=== PATIENT | female | born 1960 | race Caucasian/White ===

== ENCOUNTER 2018-03-24 15:02 | Outpatient (REF) | payer MEDICAID, SELFPAY ==
[2018-03-24 18:50] LABS: TSH (W/Ref FT4) 1.25 uIU/mL (0.358-3.74)
== END 2018-03-24 15:22 ==
LOC: NCHCN 15:02
PROVIDERS: PCP Nurse Practitioner Family; Visit Provider Nurse Practitioner Family
DX: E89.0 Postprocedural hypothyroidism (principal)
CPT/HCPCS: 84443

== ENCOUNTER 2018-12-15 07:56 | Outpatient (REF) | payer MEDICAID, SELFPAY ==
[2018-12-15 18:51] LABS: TSH (W/Ref FT4) 1.85 uIU/mL (0.358-3.74)
== END 2018-12-15 08:16 ==
LOC: NCHCN 07:56
PROVIDERS: PCP Nurse Practitioner Family; Visit Provider Nurse Practitioner Family
DX: E89.0 Postprocedural hypothyroidism (principal)
CPT/HCPCS: 84443

== ENCOUNTER 2019-01-20 00:52 | Outpatient (CLI) | payer MEDICAID, SELFPAY ==
--- NOTE | 2019-01-20 12:09 | DI.MAMMO_ITS ---
SYMPTOMS/DIAGNOSIS: SCREENING, Z12.39 MAMMOGRAMS: Mammograms were interpreted according to the usual protocol including computer analysis with CAD system, tomosynthesis and C view imaging. The breasts are of increased heterogeneous radiodensity. No dominant mass or clumped microcalcification is identified in either breast. Current examination is compared with previous examinations including August 2015 and there is increased prominence of focal area of asymmetric density projected in the central superior portion of the left breast on MLO view. Additional mammographic views of this area are requested to include MLO spot compression view of the left breast. CONCLUSION: Additional mammographic views requested as described above. Breast ultrasound may be indicated as well depending on the results of the additional mammographic views. Category 0, breast density category C. MQSA ASSESSMENT OF FINDINGS: Incomplete: Needs additional imaging evaluation. Category 0. Patient will receive a letter notifying them of these results. Bi-RADS category C. The breasts are heterogeneously dense, which may obscure small masses.
== END 2019-01-20 01:12 ==
PROVIDERS: PCP Nurse Practitioner Family; Visit Provider Nurse Practitioner Family
DX: Z12.31 Encounter for screening mammogram for malignant neoplasm of breast (principal); R92.8 Other abnormal and inconclusive findings on diagnostic imaging of breast
CPT/HCPCS: 77063; 77067

== ENCOUNTER 2019-01-27 06:20 | Outpatient (CLI) | payer MEDICAID, SELFPAY ==
--- NOTE | 2019-01-27 13:55 | DI.MAMMO_ITS ---
SYMPTOM/DIAGNOSIS: F/U MAMMO, ASYMMETRIC DENSITY CENTRAL SUPERIOR PORTION LEFT BREAST LEFT BREAST ADDITIONAL VIEWS: Additional images are interpreted according to the usual protocol including tomosynthesis and 2D imaging. An MLO spot compression view was performed of the superior left breast for questioned asymmetric density. No persistent abnormality is seen. The findings are consistent with overlying fibroglandular tissue. IMPRESSION: Category 1, negative mammogram. Yearly screening mammography is recommended. [facility] ASSESSMENT OF FINDINGS: Negative. Category 1. Patient will receive a letter notifying them of these results. Bi-RADS category C. The breasts are heterogeneously dense, which may obscure small masses.
== END 2019-01-27 06:40 ==
PROVIDERS: PCP Nurse Practitioner Family; Visit Provider Nurse Practitioner Family
DX: Z12.31 Encounter for screening mammogram for malignant neoplasm of breast (principal); R92.8 Other abnormal and inconclusive findings on diagnostic imaging of breast; N64.59 Other signs and symptoms in breast
CPT/HCPCS: 77063; 77067

== ENCOUNTER 2019-03-26 15:46 | Outpatient (REF) | payer MEDICAID, SELFPAY ==
[2019-03-26 15:04] LABS: BUN 10 mg/dL (7-18); CREATININE 0.93 mg/dL (0.55-1.02); Calcium 8.8 mg/dL (8.5-10.1); Calculated LDL 158 mg/dL; Chloride 105 mmol/L (98-107); Cholesterol 240 mg/dL (50-200); Glucose 110 mg/dL (70-100); HDL Cholesterol 50 mg/dL (40-60); Potassium 4.3 mmol/L (3.5-5.1); Sodium 142 mmol/L (136-145); TSH (W/Ref FT4) 1.29 uIU/mL (0.36-3.74); Triglyceride 160 mg/dL (30-150)
== END 2019-03-26 16:06 ==
LOC: NCHCN 15:46
PROVIDERS: PCP Nurse Practitioner Family; Visit Provider Nurse Practitioner Family
DX: E89.0 Postprocedural hypothyroidism (principal); E78.5 Hyperlipidemia, unspecified; R73.01 Impaired fasting glucose
CPT/HCPCS: 80048; 80061; 84443

== ENCOUNTER 2020-04-08 11:56 | Outpatient (REF) | payer MEDICAID, SELFPAY ==
[2020-04-08 19:57] LABS: TSH (W/Ref FT4) 0.27 uIU/mL (0.36-3.74)
[2020-04-08 20:14] LABS: FREE T4 1.45 ng/dL (0.76-1.46)
== END 2020-04-08 12:16 ==
LOC: NCHCN 11:56
PROVIDERS: PCP Nurse Practitioner Family; Visit Provider Nurse Practitioner Family
DX: E89.0 Postprocedural hypothyroidism (principal)
CPT/HCPCS: 84439; 84443

== ENCOUNTER 2020-06-07 18:30 | Outpatient (REF) | payer MEDICAID, SELFPAY ==
[2020-06-07 20:05] LABS: TSH (W/Ref FT4) 1.21 uIU/mL (0.36-3.74)
== END 2020-06-07 18:50 ==
LOC: NCHCN 18:30
PROVIDERS: PCP Nurse Practitioner Family; Visit Provider Nurse Practitioner Family
DX: E89.0 Postprocedural hypothyroidism (principal)
CPT/HCPCS: 84443

== ENCOUNTER 2020-07-20 15:54 | Outpatient (REF) | payer MEDICAID, SELFPAY ==
[2020-07-21 15:04] LABS: COVID-19 RT-PCR UVMMC Result Negative (Negative)
== END 2020-07-20 15:55 | disposition home or self-care (01) ==
LOC: NCHCN 15:54
PROVIDERS: PCP Nurse Practitioner Family; Visit Provider Family Medicine
DX: J06.9 Acute upper respiratory infection, unspecified (principal)
CPT/HCPCS: U0003

== ENCOUNTER 2020-09-22 18:06 | Outpatient (REF) | payer MEDICAID, SELFPAY ==
[2020-09-22 19:18] LABS: TSH (W/Ref FT4) 1.39 uIU/mL (0.36-3.74)
== END 2020-09-22 18:07 | disposition home or self-care (01) ==
LOC: NCHCN 18:06
PROVIDERS: PCP Nurse Practitioner Family; Visit Provider Nurse Practitioner Family
DX: E05.20 Thyrotoxicosis with toxic multinodular goiter without thyrotoxic crisis or storm (principal)
CPT/HCPCS: 84443

== ENCOUNTER 2021-05-12 15:01 | Outpatient (REF) | payer MEDICAID, SELFPAY ==
[2021-05-14 11:57] LABS: COVID-19 RT-PCR UVMMC Result Negative (Negative)
== END 2021-05-12 15:02 | disposition home or self-care (01) ==
LOC: LBN 15:01
PROVIDERS: PCP Nurse Practitioner Family; Visit Provider Family Medicine
DX: Z20.822 Contact with and (suspected) exposure to COVID-19 (principal); J06.9 Acute upper respiratory infection, unspecified
CPT/HCPCS: U0003

== ENCOUNTER 2021-05-23 16:52 | Emergency (ER) | payer MEDICAID, SELFPAY ==
--- NOTE | 2021-05-23 17:00 | RT.EKG_ITS ---
APPROVED REPORT Exam: Resting ECG Reason for Exam: SOB Patient Location: E HR:63 bpm ECG Measurements Heart Rate 63 AXIS AK 184 P 19 QRSd 90 QRS -14 QT 420 T 0 QTc 430 Conclusion Sinus rhythm...normal P axis, V-rate 60- 99
[2021-05-23 17:02] VITALS: BP 145/86; PULSE 67; RESP 18; TEMP 36.6; O2SAT 98
--- NOTE | 2021-05-23 17:15 | DI.RAD_ITS ---
Exam(s) XR PORTABLE CHEST AP EXAM: XR PORTABLE CHEST AP CLINICAL HISTORY: cough TECHNIQUE: 2D digital imaging was performed of the chest. One image was obtained. An AP view was ob tained. COMPARISON: CR CHEST 2 VIEWS PA,LAT from 06/21/2015 FINDINGS: MEDIASTINUM: Normal. HEART: Normal. PULMONARY VASCULATURE: Normal. LUNGS: Clear. PLEURAL SPACE: No pleural effusion or pneumothorax. BONE:Within normal limits for the patient's age. OTHER FINDINGS:Normal. IMPRESSION: No acute pulmonary findings. DATA REPOSITORY: RADIATION DOSE DELIVERED:
--- NOTE | 2021-05-23 17:17 | ED.GENADUL_ITS ---
Discharge Plan Disposition Patient Disposition: HOME Condition: Stable Discharge Details Clinical Impression: Cough, Breathing difficulty Primary Care Provider: Donna Shay ED Provider: Gregg Moreland Home Meds and New Rx's Prescriptions: New doxycycline hyclate 100 mg tablet 100 mg PO BID Qty: 14 RF: 0 prednisone 20 mg tablet 60 mg PO DAILY 5 Days Qty: 15 RF: 0 Continued levothyroxine [Synthroid] 125 MCG tablet 125 mcg PO DAILY RF: 0 omeprazole 20 MG capsule,delayed release(DR/EC) 20 mg PO BID RF: 0 lorazepam 1 MG tablet 1 mg PO PRN RF: 0 acetaminophen [Mapap Extra Strength] 500 MG tablet 500 mg PO PRN PRNRF: 0 ibuprofen [Advil] 200 MG tablet 1 - 2 tab PO PRN PRN (Reason: Pain) RF: 0 Discharge Instructions Additional Instructions: Your blood work and xray did not show any significant findings at this time follow up with your primary care provider within 1 week if you feel more ill, have worsening shortness of breath or high fevers return to the emergency department Medical Decision Making 61 yo female with hx of hypothyroidism, gerd, who comes in with over a week of dry cough, general weakness and states she feels like she did when she had bronchitis/walking pneumonia years ago. She states she has had a negative covid test and has been to urgent care or prescribed an inhaler and tessalon perles and these haven't helped. She states she has been feeling tight in the chest when trying to breath. SHe has stable vitals, no hypoxia speaking in full sentences. sHe has clear lungs, no murmurs, no jvd, no pedal edema. Given continued symptoms will repeat test for covid. Her symptoms seems more infectious and doubt acs but will send troponin, ecg unremarkable. No hypoxia or tachycardia and no evidence of dvt on exam so doubt PE at this time. Will xray to evaluate for infiltrate labs unremarkable and xray on my read unremarkable. She remains stable. She has had symptoms for over a week and given this will treat with doxycycline to cover for possible developing CAP vs bacterial sinusitis. She is stable for outpatient management. Advised to follow up with pcp and return precautions given Differential Diagnosis Differential Diagnosis: covid, pneumonia, uri Imaging Data Radiologic Study: Attestation: I personally reviewed and interpreted this imaging study as follows: Imaging: X-Ray My impression: no acute findings Lab Data Lab results reviewed: Yes I reviewed the patient's lab results. ECG Data Attestation: I personally reviewed and interpreted this ECG (s) as follows: Prior ECG tracings: not available for review HPI General Mode of arrival: ambulatory . Date/Time Provider Initiated Documentation: 05/23/21 16:59 . Limitations to Documentation: no limitations . Information obtained by: patient . History of Present Illness 61 year old F presents to the emergency department with the chief complaint of cough, described as moderate, and it has been constant. No relieving factors improve symptom(s), No exacerbating factors reported . Patient notes weakness. Patient did receive the following treatments prior to arrival, none Related Data Home Medications Medication Instructions Recorded Confirmed acetaminophen [Mapap Extra 500 mg PO PRN PRN 11/30/14 05/23/21 Strength] ibuprofen [Advil] 1 - 2 tab PO PRN PRN 11/30/14 05/23/21 levothyroxine [Synthroid] 125 mcg PO DAILY tab-cap 11/30/14 05/23/21 lorazepam 1 mg PO PRN tab-cap 11/30/14 05/23/21 omeprazole 20 mg PO BID 11/30/14 05/23/21 doxycycline hyclate 100 mg PO BID #14 tab 05/23/21 prednisone 60 mg PO DAILY 5 Days #15 tab 05/23/21 Previous Rx's Medication Instructions Recorded doxycycline hyclate 100 mg PO BID #14 tab 05/23/21 prednisone 60 mg PO DAILY 5 Days #15 tab 05/23/21 Allergies Allergy/AdvReac Type Severity Reaction Status Date / Time etodolac [From Lodine] Allergy swelling Unverified 05/23/21 17:06 of hands Sulfa (Sulfonamide Allergy rash, Unverified 05/23/21 17:06 Antibiotics) hand/arm swelling latex AdvReac Intermediate Hives Unverified 05/23/21 17:06 ciprofloxacin [From Cipro] AdvReac N/V Unverified 05/23/21 17:06 ciprofloxacin HCl AdvReac N/V Unverified 05/23/21 17:06 [From Cipro] General Stated Complaint: RespSymp FISH: 3 Review of Systems All systems reviewed & are unremarkable except as noted in HPI and below Constitutional Constitutional: Denies chills and Denies fever(s) Cardiovascular Cardiovascular: Denies chest pain and Denies dyspnea Respiratory Respiratory: Denies dyspnea Gastrointestinal Gastrointestinal: Denies abdominal pain, Denies nausea and Denies vomiting Musculoskeletal Musculoskeletal: Denies joint swelling Psychiatric Psychiatric: Denies depression PFSH All Active Problems (Updated 05/23/21 @ 18:04 by Gregg Moreland MD) Cough (Acute) Breathing difficulty (Acute) Social History Smoking/Tobacco Use Status: Former Tobacco Use Smoking risk assessment performed?: Yes Alcohol Intake: never Drug use: Never Substance use type: does not use Exam Const General: no acute distress Orientation: alert HENMT Head: normal to inspection Ears: external ears normal General nose exam: external nose normal Mouth: moist mucous membranes Eyes General: appearance normal, both eyes and all related structures Neck Neck: normal visual inspection Resp Effort & Inspection: normal respiratory effort and able to speak in complete sentences Cardio Rate: regular rate Skin General skin exam: no rashes or lesions noted Neuro General: patient alert and patient oriented x3 Extrem General: normal to inspection Psych Mental Status: mental status grossly normal Course Vital Signs Vital signs: Vital Signs Temperature 36.6 C 05/23/21 17:02 Pulse 67 05/23/21 17:02 Respiratory Rate 18 05/23/21 17:02 Blood Pressure 145/86 H 05/23/21 17:02 Pulse Oximetry 98 05/23/21 17:02 Temperature 36.6 C 05/23/21 17:02 Temperature Source Temporal Artery Scan 05/23/21 17:02 Pulse 67 05/23/21 17:02 Respiratory Rate 18 05/23/21 17:02 Respiratory Effort Non-Labored 05/23/21 17:06 Respiratory Depth Normal 05/23/21 17:06 Blood Pressure 145/86 H 05/23/21 17:02 Pulse Oximetry 98 05/23/21 17:02 Oxygen Delivery Method Room Air 05/23/21 17:02 Oxygen Flow Rate 0 05/23/21 17:02 Pain Level 4 05/23/21 17:02
[2021-05-23 17:25] LABS: Abs Immature Grans 0.02 10^3/uL (0.0-0.06); Absolute Basophil Count 0.04 10^3/uL (0.0-0.2); Absolute Eosinophil Count 0.12 10^3/uL (0.0-0.7); Absolute Monocyte Count 0.48 10^3/uL (0.1-0.8); Absolute Neutrophil Count 4.45 10^3/uL (1.2-6.7); Basophils % 0.6; Eosinophils % 1.7; HGB 12.9 g/dL (11.2-15.7); Immature Grans % 0.3; Lymphocytes % 28.1; MCH 28.2 pg (27.0-33.0); MCHC 33.1 % (32.0-36.0); MCV 85.2 fL (80-95); MPV 11.7 fL (8.0-11.0); Monocytes % 6.8; Neutrophils % 62.5; Nucleated RBC 0 %; Platelet Count 182 10^3/uL (130-400); RBC 4.58 10^6/uL (3.93-5.22); RDW 13.5 % (11.7-14.6); RDW-SD 41.8 fL; WBC 7.11 10^3/uL (4.4-10.8)
[2021-05-23 17:48] LABS: ALT 30 U/L (14-59); AST 16 U/L (15-37); Albumin 3.7 g/dL (3.4-5.0); Alkaline Phosphatase 97 U/L (46-116); Anion Gap 8.1 mmol/L (3-11); BUN 15 mg/dL (7-18); Bilirubin, Total 0.4 mg/dL (0.2-1.0); CO2 25.9 mmol/L (21.0-32.0); CREATININE 0.9 mg/dL (0.55-1.02); Calcium 8.6 mg/dL (8.5-10.1); Chloride 104 mmol/L (98-107); Glucose 97 mg/dL (74-106); Potassium 3.6 mmol/L (3.5-5.1); Sodium 138 mmol/L (136-145); Total Protein 7.3 g/dL (6.4-8.2); Troponin I < 50 ng/L (<or=60)
[2021-05-23] MEDS: Doxycycline Hyclate 100 MG CAP PO (18:10)
--- NOTE | 2021-05-23 18:12 | DI.VRAD_ITS ---
PROCEDURE INFORMATION: Exam: XR Chest Exam date and time: 05/23/2021 5:17 PM Age: 61 years old Clinical indication: Other: Cough TECHNIQUE: Imaging protocol: XR of the chest. Views: 1 view. COMPARISON: CR CHEST 2 VIEWS PA,LAT 06/21/2015 10:29 AM FINDINGS: Lungs: Unremarkable. No consolidation. Pleural spaces: Unremarkable. No pleural effusion. No pneumothorax. Heart/Mediastinum: Unremarkable. No cardiomegaly. Bones/joints: Unremarkable. IMPRESSION: No acute findings. Dictated and Authenticated by: Mark Villeda MD. Ordering:PAM Escobedo MD
[2021-05-23 23:23] VITALS: BP 145/86; PULSE 67; RESP 18; TEMP 36.6; O2SAT 98
[2021-05-25 17:02] LABS: COVID-19 RT-PCR UVMMC Result Negative (Negative)
--- NOTE | 2021-05-27 11:24 | NUR.NOTE ---
negative covid result relayed to pt via phone.Nursing Note:
== END 2021-05-23 18:17 | disposition home or self-care (01) ==
PROVIDERS: Emergency Provider Emergency Medicine; PCP Nurse Practitioner Family
DX: R05.1 Acute cough (principal); R06.02 Shortness of breath; R53.1 Weakness; R07.89 Other chest pain; Z20.822 Contact with and (suspected) exposure to COVID-19
CPT/HCPCS: 80053; 93005; 99284; U0003; 71045; 84484; 85025; 93010

== ENCOUNTER 2021-06-13 14:29 | Outpatient (REF) | payer MEDICAID, SELFPAY ==
[2021-06-13 15:30] LABS: Abs Immature Grans 0.01 10^3/uL (0.0-0.06); Absolute Basophil Count 0.04 10^3/uL (0.0-0.2); Absolute Eosinophil Count 0.13 10^3/uL (0.0-0.7); Absolute Lymphocyte Count 1.26 10^3/uL (1.2-3.4); Absolute Monocyte Count 0.31 10^3/uL (0.1-0.8); Absolute Neutrophil Count 2.79 10^3/uL (1.2-6.7); Basophils % 0.9; Eosinophils % 2.9; HCT 43.5 % (36.0-46.0); HGB 14.3 g/dL (11.2-15.7); Immature Grans % 0.2; Lymphocytes % 27.8; MCH 28.7 pg (27.0-33.0); MCHC 32.9 % (32.0-36.0); MCV 87.2 fL (80-95); MPV 12.8 fL (8.0-11.0); Monocytes % 6.8; Neutrophils % 61.4; Nucleated RBC 0 %; Platelet Count 158 10^3/uL (130-400); RBC 4.99 10^6/uL (3.93-5.22); RDW 13.4 % (11.7-14.6); RDW-SD 42.8 fL; WBC 4.54 10^3/uL (4.4-10.8)
[2021-06-13 16:58] LABS: Anion Gap 11.4 mmol/L (3-11); BUN 16 mg/dL (7-18); CO2 24.6 mmol/L (21.0-32.0); CREATININE 0.8 mg/dL (0.55-1.02); Calcium 9.1 mg/dL (8.5-10.1); Chloride 103 mmol/L (98-107); Glucose 115 mg/dL (74-106); Potassium 4.1 mmol/L (3.5-5.1); Sodium 139 mmol/L (136-145); TSH (W/Ref FT4) 1.58 uIU/mL (0.36-3.74)
[2021-06-14 11:10] LABS: Hepatitis C Ab w Rflx HCV PCR Negative (Negative)
== END 2021-06-13 14:30 | disposition home or self-care (01) ==
LOC: LBN 14:29
PROVIDERS: PCP Nurse Practitioner Family; Visit Provider Family Medicine
DX: E89.0 Postprocedural hypothyroidism (principal); R53.83 Other fatigue; J18.9 Pneumonia, unspecified organism; Z11.59 Encounter for screening for other viral diseases
CPT/HCPCS: 80048; 86803; 84443; 85025

== ENCOUNTER 2021-06-20 20:02 | Outpatient (REF) | payer MEDICAID, SELFPAY | END 2021-06-20 20:03 | disposition home or self-care (01) | LOC: LBN 20:02 | PROVIDERS: PCP Nurse Practitioner Family; Visit Provider Family Medicine | DX: R35.0 Frequency of micturition (principal) | CPT/HCPCS: 87077; 87086; 87186 ==

== ENCOUNTER 2021-06-27 17:23 | Outpatient (REF) | payer MEDICAID, SELFPAY ==
[2021-06-27 17:09] LABS: Bilirubin Negative (Negative); Blood Negative (Negative); Clarity Sl Cloudy (Clear); Glucose Negative (Negative); Ketones Negative (Negative); Leukocyte Esterase Small (Negative); Nitrite Negative (Negative); Specific Gravity >= 1.030 (1.005-1.025); Urobilinogen 0.2 EU/dL (Up TO 0.2); pH 5.5 (5-8)
[2021-06-27 17:44] LABS: Bacteria Few HPF (Negative); C & S Indicated? C&S Done As Ordered; Crystals Negative HPF (Negative); Epithelial Cells Many HPF (Negative); Mucus Heavy (Negative); RBC 0-2 HPF (0-2)
== END 2021-06-27 17:24 | disposition home or self-care (01) ==
LOC: LBN 17:23
PROVIDERS: PCP Nurse Practitioner Family; Visit Provider Family Medicine
DX: N30.00 Acute cystitis without hematuria (principal)
CPT/HCPCS: 81003; 81015; 87086

== ENCOUNTER 2021-07-31 14:03 | Outpatient (CLI) | payer OTHER, MEDICAID, SELFPAY ==
--- NOTE | 2021-07-31 14:00 | DI.RAD_ITS ---
Exam(s) XR LUMBAR SPINE COMPLETE EXAM: XR LUMBAR SPINE COMPLETE CLINICAL HISTORY: ACUTE BACK PAIN, M54.89, ACUTE PAIN DUE TO TRAUMA, G89.11. TECHNIQUE: 2D digital imaging was performed. COMPARISON: No exams were available for comparison FINDINGS: BONES: No fracture or destructive lesion. Vertebral bodies are unremarkable. Facet degenerative cruz es L4-5 and L5-S1. DISKS: Disc space narrowing L5-S1. Remaining disc spaces are well maintained. Small endplate osteop hytes. ALIGNMENT: Lumbar spinal alignment is within normal limits. SOFT TISSUE: Normal. Cholecystectomy clips right upper quadrant. IMPRESSION: Degenerative disc changes at L5-S1. No acute abnormality. DATA REPOSITORY: RADIATION DOSE DELIVERED:
--- NOTE | 2021-07-31 14:00 | DI.RAD_ITS ---
Exam(s) XR THORACIC SPINE COMPLETE EXAM: XR THORACIC SPINE COMPLETE CLINICAL HISTORY: ACUTE BACK PAIN, M54.89, ACUTE PAIN DUE TO TRAUMA, G89.11. TECHNIQUE: 2D digital imaging was performed. COMPARISON: No exams were available for comparison FINDINGS: BONES: There is no fracture or destructive lesion. The vertebral bodies and posterior elements are un remarkable. Osteophytes anteriorly and toward the right in the midthoracic region. DISKS:Alignment is within normal limits. Interverebral disc spaces are maintained. SOFT TISSUE: Visualized lungs are clear. IMPRESSION: Degenerative disc changes. DATA REPOSITORY: RADIATION DOSE DELIVERED:
== END 2021-07-31 14:23 ==
PROVIDERS: PCP Nurse Practitioner Family; Visit Provider Nurse Practitioner Family
DX: M54.6 Pain in thoracic spine (principal); G89.11 Acute pain due to trauma; M51.34 Other intervertebral disc degeneration, thoracic region; M54.59 Other low back pain; M51.37 Other intervertebral disc degeneration, lumbosacral region
CPT/HCPCS: 72072; 72110

== ENCOUNTER 2022-05-15 12:35 | Outpatient (REF) | payer MEDICAID, SELFPAY ==
--- NOTE | 2022-05-15 11:40 | PAPFT_PTH ---
PATIENT: Shea Verma LOC: [facility] U#:[id number] AGE/SX: 62/F ROOM: RE05/15/[address]: Donna Shay : 1960 BED: DIS: 05/15/2022 SPEC #: [id number] RECD: 05/15/22 18:23 STATUS: COLE REQ #: [id number] OLIVER: 05/15/22 11:[address]: Donna Shay DEPT: [facility] Cytology RECD BY: Yesenia Hurtado Tissues: 1 - CX/ENDOCX FOR PAP SMEARS Procedures: PAP THIN PREP/UVM Screening HPV DNA PROBE Comments: [id number]
[2022-05-15 16:09] LABS: Anion Gap 6.9 mmol/L (3-11); BUN 11 mg/dL (7-18); CO2 29.1 mmol/L (21.0-32.0); CREATININE 0.8 mg/dL (0.55-1.02); Chloride 103 mmol/L (98-107); Estimated GFR 83.26 (mL/min/1.73m2); Glucose 108 mg/dL (74-106); Potassium 4.3 mmol/L (3.5-5.1); Sodium 139 mmol/L (136-145); TSH (W/Ref FT4) 0.18 uIU/mL (0.36-3.74)
[2022-05-15 16:26] LABS: FREE T4 1.56 ng/dL (0.76-1.46)
== END 2022-05-15 12:36 | disposition home or self-care (01) ==
LOC: NCHCN 12:35
PROVIDERS: PCP Nurse Practitioner Family; Visit Provider Nurse Practitioner Family
DX: E89.0 Postprocedural hypothyroidism (principal); Z00.00 Encounter for general adult medical examination without abnormal findings; Z12.4 Encounter for screening for malignant neoplasm of cervix; Z11.51 Encounter for screening for human papillomavirus (HPV)
CPT/HCPCS: 80048; 88142; 84439; 84443; 87624

== ENCOUNTER 2022-06-14 02:47 | Outpatient (CLI) | payer MEDICAID, SELFPAY ==
--- NOTE | 2022-06-14 | DI.MAMMO_ITS ---
Exam(s) US BREAST RT COMPLETE MG MAMMO SCREENING EXAM: MAMMO SCREENING and U/S breast RT complete CLINICAL HISTORY: SCREENING, Z12.39. TECHNIQUE: Craniocaudal and mediolateral oblique Full Field Digital Mammography views with Computer Aided Diagnosis followed by Tomosynthesis and right breast ultrasound. COMPARISON: Comparison is made with prior examinations. FINDINGS: Mammography/Tomosynthesis: Masses/Architectural Distortion: Increased breast density in the upper-outer quadrant of the right br east. Microcalcifictions: Since the prior examination there has been a development of increased microcalcif ications centered in the upper outer quadrant of the right breast with an increase in the breast dens ity. Skin Thickening/Nipple Retraction: None. Right breast US: Echotexture: Normal appearance of the glandular tissue. Shadowing: There is an area shadowing and hypo echogenicity at the 9 o'clock position of the right br east. This corresponds to the area of increased density in microcalcification in the upper outer felix drant of the right breast. Cyst: None. Solid lesions: None seen. Ductal dilation: None. IMPRESSION: 1. Findings suspicious for malignancy involving the upper outer quadrant of the right breast with an increase in breast density and interval development of microcalcifications centered in the upper oute r quadrant. 2. Biopsy is recommended in this patient. 3. The findings were discussed with the patient on the date of the examination. Findings were discus sed with Donna Shay at 4 o'clock on 06/14/2022. BI-RADS Category 5 - Highly Suggestive of Malignancy: Biopsy recommended Breast Density - Category B - Scattered areas of fibroglandular density Breast density Category C or D implies that the patient has dense breast tissue. Dense breast tissue can make it harder to find cancer on a mammogram. Dense breast tissue is also associated with an incr eased risk of breast cancer. This information about the result of the mammogram report was provided to the patient to raise their awareness. Use this report when you speak with the patient about their risks for breast cancer, which includes their family history. At that time, you may recommend additional screening tests (Ultrasoun d or MRI) as these tests may add significant information. A negative radiographic report should not delay biopsy if a dominant or clinically suspicious mass is present. Up to ten percent of cancers are not identified on mammography. A negative report may reinforce clinical impression. Adenosis and dense breasts may obscure an underlying neoplasm. False positive reports average 6 to 10%. Patient will receive a letter notifying them of these results.
== END 2022-06-14 03:07 ==
LOC: DI 02:48
PROVIDERS: PCP Nurse Practitioner Family; Visit Provider Nurse Practitioner Family
DX: Z12.31 Encounter for screening mammogram for malignant neoplasm of breast (principal); R92.8 Other abnormal and inconclusive findings on diagnostic imaging of breast
CPT/HCPCS: 76642; 77063; 77067

== ENCOUNTER 2022-08-10 09:41 | Day surgery (SDC) | payer MEDICAID, SELFPAY ==
--- NOTE | 2022-08-10 05:23 | W.PM.DSUDISC ---
Date of service: 08/10/22 Time of Service: 13:20 Discharge Plan Disposition Patient Disposition: Home Condition: Good Discharge Details Reason For Visit: Screening colonoscopy Attending Provider: Dakota Cross Primary Care Provider: Donna Shay Home Meds and New Rx's Prescriptions: Continued lorazepam 1 MG tablet 1 mg PO PRN omeprazole 20 mg capsule,delayed release(DR/EC) 20 mg PO DAILY metronidazole [MetroCream] 0.75 % cream 1 applic topical BID levothyroxine 112 mcg capsule 100 mcg PO DAILY acetaminophen [Mapap Extra Strength] 500 MG tablet 500 mg PO PRN PRN ibuprofen [Advil] 200 MG tablet 1 - 2 tab PO PRN PRN (Reason: Pain) Discontinued bisacodyl [Dulcolax (bisacodyl)] 5 mg tablet,delayed release (DR/EC) 5 mg PO ONCE Qty: 4 0RF Rx Instructions: Take according to provider's instructions for colonoscopy prep. polyethylene glycol 3350 17 gram/dose powder 17 g PO ONCE Qty: 238 0RF Rx Instructions: To be taken as directed by prescriber's office for colonoscopy prep. Discharge Instructions Instructions: Colorectal Polyps (GEN), Diverticulosis (GEN) Additional Instructions: 1. If tolerated, consume a soft, low fiber diet for 1-2 days. [address] Do not drive, drink alcohol, operate machinery, make critical decisions, or do activities that require coordination or balance for 24 hours. 3. Because air was put into your colon during the procedure, expelling air from your rectum (passing gas or farting) is normal. 4. You may not have a bowel movement for 1-3 days because of the colonoscopy prep. This is normal. 5. Go directly to the emergency room if you notice any of the following: Develop chills (warm to touch), or if you have a thermometer and your temperature is above 101 Difficulty breathing or difficultly swallowing Persistent vomiting Severe abdominal pain, other than gas cramps Severe chest pain Black, tarry stools Any bleeding ? exceeding one tablespoon 6. Call your physician if the site where your intravenous was started becomes red, swollen, painful, and warm to touch. 7. Your physician has reviewed your pre-procedure medications. Please continue to take those medications as previously ordered. You will be given specific information/education regarding any changes to your medications before leaving. Activity:: Activity as Tolerated Diet:: As Tolerated Discharge Orders Discharge Orders: Discharge Order (Routine); Ordered 08/10/22 Ordered By: Dakota Cross DS: Diagnosis Discharge Diagnosis (1) Screening for colon cancer: Status: Acute Asessment and Plan: Follow-up on polypectomy report
--- NOTE | 2022-08-10 05:24 | W.COLOREPORT ---
Date of service: 08/10/22 Time of Service: 13:21 Colonoscopy Report Date of procedure: 08/10/22 Pre-op diagnosis general: Encounter for screening colonoscopy Post-op diagnosis procedure note: other (Diverticulosis, rectal polyp) Procedure: Colonoscopy Surgeon: Dakota Cross Anesthesia Type: General:No Airway Estimated blood loss (mL): 10 Pathology: other (Rectal polyp) Complications: None Disposition: same day Indications: Shea is 62 years old. She is here for her second screening colonoscopy Prep: Miralax/Dulcolax Procedure Start Time: 12:45 Procedure End Time: 12:51 Retraction Time: 5 Findings: Sigmoid diverticulosis, rectal polyp Procedure Description: After the induction of monitored anesthetic care, and with the patient in left lateral decubitus position, I began by performing an external anorectal exam.? Perineum and skin were normal, as was the anal verge.? There was no evidence of external hemorrhoids.? Next, I performed a digital rectal exam.? I did not appreciate any abnormal findings.? Next, I advanced a colonoscope into the rectal vault.? I performed retroflexion.? This was normal.? Using insufflation, I then advanced the colonoscope beyond the rectal folds and into the sigmoid colon before advancing towards the cecum.? There was sigmoid diverticulosis the quality of the prep was adequate.? The scope was noted to be in the cecum by identification of the ileocecal valve and appendiceal orifice.? I then began withdrawing the colonoscope using repeated irrigation as necessary for full evaluation of the colonic mucosa. ?Once the scope was withdrawn to the level of the rectum, great care was taken to examine portions of the rectal folds.? There was a single, 0.25 cm rectal polyp. It was sessile. I removed it with cold forcep polypectomy. There was minimal bleeding. Finally, the scope was withdrawn and the patient was brought to the same-day surgery recovery unit as the anesthetic wore off. ?The findings and instructions were shared with the patient prior to discharge.
[2022-08-10 10:26] VITALS: BP 127/95; PULSE 70; RESP 18; TEMP 36.6; O2SAT 99
[2022-08-10] MEDS: Lactated Ringers 1,000 ML 80 ML IV (11:05)
--- NOTE | 2022-08-10 11:28 | ANES.PREOP_ITS ---
General Info Date of Service Date Performed: 08/10/22 Height: 5 ft 4 in Weight: 92.8 kg Body Mass Index (BMI): 35.1 Surgical Procedure: Operation Date: 08/10/22 13:05 Proposed Procedure Side Surgeon edilberto Cross MD Meds Allergies and Home Medications Allergies Allergy/AdvReac Type Severity Reaction Status Date / Time etodolac [From Lodine] Allergy swelling Unverified 08/10/22 10:52 of hands Sulfa (Sulfonamide Allergy rash, Unverified 08/10/22 10:52 Antibiotics) hand/arm swelling latex AdvReac Intermediate Hives Unverified 08/10/22 10:52 ciprofloxacin [From Cipro] AdvReac N/V Unverified 08/10/22 10:52 ciprofloxacin HCl AdvReac N/V Unverified 08/10/22 10:52 [From Cipro] Home Medication Medication Instructions Recorded acetaminophen 500 mg tablet (Mapap 500 mg PO PRN PRN 11/30/14 Extra Strength) ibuprofen 200 mg tablet (Advil) 1 - 2 tab PO PRN PRN Pain 11/30/14 lorazepam 1 mg tablet 1 mg PO PRN 11/30/14 metronidazole 0.75 % topical cream 1 applic topical BID 01/08/22 (MetroCream) omeprazole 20 mg capsule,delayed 20 mg PO DAILY 01/08/22 release levothyroxine 112 mcg capsule 100 mcg PO DAILY 07/19/22 Current Visit Medications: Current Medications Generic Name Dose Route Start Last Admin Trade Name Freq PRN Reason Stop Dose Admin Hyoscyamine Sulfate 0.125 mg 08/10/22 05:25 Hyoscyamine 0.125 Mg Sl/Oral/Chew SL DIRECTED PRN Ringer's Solution 1,000 mls @ 80 mls/hr 08/10/22 06:00 08/10/22 11:05 IV 08/10/22 23:59 80 mls/hr INFUSION DAJUAN Administration IV Miscellaneous Supplies 1 each 08/10/22 06:00 Iv Access IV 08/10/22 23:59 DIRECTED DAJUAN Ondansetron HCl 4 mg 08/10/22 05:25 Ondansetron 4 Mg/2 Ml Vial IVP Q4H PRN PRN Nausea / Vomiting Sodium Chloride 0 ml 08/10/22 06:00 Normal Saline Flush 10 Ml Syr IV 08/10/22 23:59 PRN PRN Sodium Chloride 0 ml 08/10/22 06:00 Normal Saline 10 Ml Vial IJ 08/10/22 23:59 DIRECTED PRN Sterile Water 0 ml 08/10/22 06:00 Water,Injection,Sterile 10 Ml Vial IJ 08/10/22 23:59 DIRECTED PRN PFSH Active Problems Active Problems: Problem Status Onset Code Acute pain due to trauma G89.11 Back pain, acute M54.9 Screening for colon cancer Z12.11 Medical History Medical History Acute cystitis Allergic rhinitis BMI 35.0-35.9,adult DCIS (ductal carcinoma in situ) Disorder of vocal cord laryngoplasty GERD (gastroesophageal reflux disease) History of thyroid cancer Hyperlipidemia Malaise and fatigue [place]'s disease Pneumonia Prediabetes Rosacea Surgical History Surgical History (Updated 08/10/22 @ 10:52 by Vidya Enciso RN) H/O colonoscopy H/O esophagogastroduodenoscopy History of laryngoplasty History of partial hysterectomy Hx of cholecystectomy Hx of thyroidectomy Tobacco Smoking/Tobacco Use Status: Former Tobacco Use Alcohol Alcohol Intake: current Alcohol intake frequency: a few times a month Substance Use Substance use: Rarely Substance use type: marijuana Details: marijuana inh t-2 Vital Signs and Lab Results Vital Signs Most Recent Vital Signs in EMR: Most Recent Vital Signs Temp Pulse Resp BP Pulse Ox 36.6 C 70 18 127/95 H 99 08/10/22 10:26 08/10/22 10:26 08/10/22 10:26 08/10/22 10:26 08/10/22 10:26 Lab Results Blood Type / Crossmatch: No Data to Display Complete Blood Count: No Data to Display Complete Metabolic Panel: No Data to Display Liver Function Panel: No Data to Display Coagulation Panel: No Data to Display Cardiac Panel: No Data to Display Arterial Blood Gas: No Data to Display Venous Blood Gas: No Data to Display Pancreas Panel: No Data to Display Thyroid Panel: No Data to Display Infectious Disease: No Data to Display Blood Cultures: No Data to Display Toxicology Panel: No Data to Display Anesthesia Assessment and Plan Anesthesia History Personal History: PONV Family History: No Family History of Anesthesia Complications Exercise Tolerance Exercise Tolerance: Metabolic Equivalents>4 Pertinent Negatives Pertinent Negatives: No Major Cardiovascular Symptoms or Complaints and No Major Pulmonary Symptoms or Complaints Cardiac & Pulmonary Exam Cardiac Exam: Normal S1/S2 Heart Sounds Pulmonary Exam: Clear Bilateral Breath Sounds Implantable Cardiac Device Does patient have a Pacemaker or an ICD?: No Airway Exam Known Difficult Airway: No Mallampati Class: 2 (Hx of vocal cord reconstruction, small ETT if intubation necessary) Mouth Opening: Normal (> 3cm) Thyromental Distance: Greater than 3 cm Neck Range of Motion: Full ROM Neck Circumference: Normal Teeth Condition: Normal Dentition ASA Classification ASA Score: ASA 2 Emergency Case?: No NPO Status NPO Status: NPO Clears >2 hours, Solids >8 hours Anesthesia Plan Resuscitation Status: Full Code Anesthesia Technique: General Anesthesia Airway Planned: Natural Airway Monitors Used: Standard Monitors
--- NOTE | 2022-08-10 12:46 | BOWEL_PTH ---
PATIENT: Shea Verma LOC: [facility] U#:[id number] AGE/SX: 62/F ROOM: RE08/10/[address]: Dakota Cross MD : [id number] BED: DIS: 08/10/2022 SPEC #: [id number] RECD: 08/10/22 13:03 STATUS: COLE REQ #: [id number] OLIVER: 08/10/22 12:[address]: Dakota Cross DEPT: Surgical Specimen RECD BY: Yesenia Hurtado ENTERED: 08/10/22 13:04 SP TYPE: Bowel OTHR DR: Donna Shay Tissues: 1 - BIOPSY BOWEL Procedures: GROSS AND MICRO LEVEL 4 Comments: [id number]
[2022-08-10 12:53] VITALS: BP 120/97; PULSE 82; RESP 18; TEMP 36.3; O2SAT 97
[2022-08-10 13:33] VITALS: BP 127/81; PULSE 68; RESP 18; TEMP 36.3; O2SAT 97
--- NOTE | 2022-08-10 13:42 | W.ANESPOSTOP ---
Postoperative Evaluation Date, Time and Location Date Performed: 08/10/22 Time Performed: 13:15 Patient Location: Day Surgery Unit Vital Signs Most Recent Imported Vital Signs: Most Recent Vital Signs Temp Pulse Resp BP Pulse Ox 36.3 C L 68 18 127/81 97 08/10/22 13:33 08/10/22 13:33 08/10/22 13:33 08/10/22 13:33 08/10/22 13:33 Pain Score Most Recent Pain Score: Most Recent Pain Score Pain Level 0 08/10/22 13:33 Assessment Mental Status: Awake (Alert & Oriented to Patient Baseline) Airway and Respiratory Function: Patent airway with normal (patient baseline) respiratory exam Cardiovascular Function: Hemodynamically Stable Hydration Status: Adequately Hydrated Nausea & Vomiting: No Nausea or Vomiting Pain: Pt. Denies Any Pain Peripheral Nerve Block: Patient did not receive a nerve block
[2022-08-10 13:47] VITALS: BMI 35.1
== END 2022-08-10 14:29 | disposition home or self-care (01) ==
PROVIDERS: PCP Nurse Practitioner Family; Visit Provider Surgery
PROC: 0DJD8ZZ Inspection of Lower Intestinal Tract, Via Natural or Artificial Opening Endoscopic (ICD-10-PCS; CPT 45378; principal; 2022-08-10 13:00)
DX: Z12.11 Encounter for screening for malignant neoplasm of colon (principal); K62.1 Rectal polyp; K57.30 Diverticulosis of large intestine without perforation or abscess without bleeding
CPT/HCPCS: 45380; 88305; J2405

== ENCOUNTER 2022-12-31 10:30 | Outpatient (RCR) | payer MEDICAID, SELFPAY ==
[2022-12-18] MEDS: Heparin 500 UNITS/5 ML SYRINGE (14:17)
[2022-12-18 14:23] LABS: Abs Immature Grans 0.03 10^3/uL (0.0-0.06); Absolute Basophil Count 0.05 10^3/uL (0.0-0.2); Absolute Eosinophil Count 0.14 10^3/uL (0.0-0.7); Absolute Lymphocyte Count 1.89 10^3/uL (1.2-3.4); Absolute Monocyte Count 0.21 10^3/uL (0.1-0.8); Absolute Neutrophil Count 2.61 10^3/uL (1.2-6.7); Eosinophils % 2.8; HCT 35.6 % (36.0-46.0); HGB 11.9 g/dL (11.2-15.7); Immature Grans % 0.6; Lymphocytes % 38.3; MCH 28.1 pg (27.0-33.0); MCHC 33.4 % (32.0-36.0); MCV 84 fL (80-95); MPV 11.3 fL (8.0-11.0); Monocytes % 4.3; Platelet Count 211 10^3/uL (130-400); RBC 4.23 10^6/uL (3.93-5.22); RDW 14.2 % (11.7-14.6); RDW-SD 43.2 fL; WBC 4.93 10^3/uL (4.4-10.8)
[2022-12-18] MEDS: Normal Saline Flush 10 ML SYR IVP (14:23)
[2022-12-18 14:40] LABS: ALT 37 U/L (14-59); AST 18 U/L (15-37); Albumin 3.4 g/dL (3.4-5.0); Alkaline Phosphatase 100 U/L (46-116); Anion Gap 7.9 mmol/L (3-11); BUN 6 mg/dL (7-18); Bilirubin, Total 0.4 mg/dL (0.2-1.0); CO2 26.1 mmol/L (21.0-32.0); CREATININE 0.8 mg/dL (0.55-1.02); Calcium 8.6 mg/dL (8.5-10.1); Chloride 107 mmol/L (98-107); Estimated GFR 83.26 (mL/min/1.73m2); Glucose 111 mg/dL (74-106); Potassium 3.4 mmol/L (3.5-5.1); Sodium 141 mmol/L (136-145); Total Protein 6.7 g/dL (6.4-8.2)
[2022-12-24] MEDS: Normal Saline Flush 10 ML SYR IVP (11:21)
[2022-12-24 11:24] LABS: Abs Immature Grans 0.02 10^3/uL (0.0-0.06); Absolute Basophil Count 0.02 10^3/uL (0.0-0.2); Absolute Eosinophil Count 0.09 10^3/uL (0.0-0.7); Absolute Lymphocyte Count 1.36 10^3/uL (1.2-3.4); Absolute Monocyte Count 0.11 10^3/uL (0.1-0.8); Absolute Neutrophil Count 3.05 10^3/uL (1.2-6.7); Basophils % 0.4; Eosinophils % 1.9; HCT 36.6 % (36.0-46.0); HGB 12.1 g/dL (11.2-15.7); Immature Grans % 0.4; Lymphocytes % 29.2; MCHC 33.1 % (32.0-36.0); MCV 85 fL (80-95); MPV 11.8 fL (8.0-11.0); Monocytes % 2.4; Neutrophils % 65.7; Platelet Count 212 10^3/uL (130-400); RBC 4.32 10^6/uL (3.93-5.22); RDW 14.9 % (11.7-14.6); RDW-SD 44.3 fL; WBC 4.65 10^3/uL (4.4-10.8)
[2022-12-24 11:54] LABS: ALT 38 U/L (14-59); AST 16 U/L (15-37); Albumin 3.5 g/dL (3.4-5.0); Alkaline Phosphatase 87 U/L (46-116); Anion Gap 7.9 mmol/L (3-11); BUN 7 mg/dL (7-18); Bilirubin, Total 0.4 mg/dL (0.2-1.0); CO2 27.1 mmol/L (21.0-32.0); CREATININE 0.7 mg/dL (0.55-1.02); Calcium 8.5 mg/dL (8.5-10.1); Chloride 106 mmol/L (98-107); Estimated GFR 97.72 (mL/min/1.73m2); Glucose 125 mg/dL (74-106); Magnesium 1.8 mg/dL (1.8-2.4); Potassium 3.9 mmol/L (3.5-5.1); Sodium 141 mmol/L (136-145); Total Protein 6.8 g/dL (6.4-8.2)
[2022-12-31] MEDS: Normal Saline Flush 10 ML SYR IVP (10:46)
[2022-12-31 10:56] LABS: Abs Immature Grans 0.03 10^3/uL (0.0-0.06); Absolute Basophil Count 0.02 10^3/uL (0.0-0.2); Absolute Eosinophil Count 0.08 10^3/uL (0.0-0.7); Absolute Monocyte Count 0.15 10^3/uL (0.1-0.8); Absolute Neutrophil Count 1.62 10^3/uL (1.2-6.7); Basophils % 0.6; Eosinophils % 2.5; HCT 35.7 % (36.0-46.0); HGB 11.8 g/dL (11.2-15.7); Immature Grans % 0.9; Lymphocytes % 40.6; MCH 28.1 pg (27.0-33.0); MCHC 33.1 % (32.0-36.0); MCV 85 fL (80-95); MPV 11.5 fL (8.0-11.0); Monocytes % 4.7; Neutrophils % 50.7; Platelet Count 210 10^3/uL (130-400); RDW 15.6 % (11.7-14.6)
[2022-12-31 11:11] LABS: ALT 33 U/L (14-59); AST 17 U/L (15-37); Albumin 3.6 g/dL (3.4-5.0); Alkaline Phosphatase 91 U/L (46-116); Anion Gap 8.4 mmol/L (3-11); BUN 8 mg/dL (7-18); Bilirubin, Total 0.5 mg/dL (0.2-1.0); CO2 25.6 mmol/L (21.0-32.0); CREATININE 0.8 mg/dL (0.55-1.02); Calcium 8.7 mg/dL (8.5-10.1); Chloride 103 mmol/L (98-107); Estimated GFR 83.26 (mL/min/1.73m2); Glucose 106 mg/dL (74-106); Magnesium 1.6 mg/dL (1.8-2.4); Potassium 3.1 mmol/L (3.5-5.1); Sodium 137 mmol/L (136-145); Total Protein 6.9 g/dL (6.4-8.2)
== END 2022-12-31 23:59 | disposition home or self-care (01) ==
LOC: INF 10:30
PROVIDERS: Internal Medicine Medical Oncology; PCP Nurse Practitioner Family; Visit Provider Internal Medicine
DX: Z45.2 Encounter for adjustment and management of vascular access device (principal); C50.911 Malignant neoplasm of unspecified site of right female breast; Z71.0 Person encountering health services to consult on behalf of another person
CPT/HCPCS: 36591; 80053; 83735; 85025

== ENCOUNTER 2023-01-31 01:21 | Outpatient (RCR) | payer MEDICAID, SELFPAY ==
[2023-01-03] MEDS: Normal Saline Flush 10 ML SYR IVP (11:12)
[2023-01-03 11:24] LABS: Abs Immature Grans 0.03 10^3/uL (0.0-0.06); Absolute Basophil Count 0.02 10^3/uL (0.0-0.2); Absolute Eosinophil Count 0.03 10^3/uL (0.0-0.7); Absolute Lymphocyte Count 1.28 10^3/uL (1.2-3.4); Absolute Monocyte Count 0.18 10^3/uL (0.1-0.8); Absolute Neutrophil Count 2.73 10^3/uL (1.2-6.7); Basophils % 0.5; Eosinophils % 0.7; HCT 34.1 % (36.0-46.0); HGB 11.4 g/dL (11.2-15.7); Immature Grans % 0.7; MCH 28.3 pg (27.0-33.0); MCHC 33.4 % (32.0-36.0); MCV 85 fL (80-95); MPV 11.6 fL (8.0-11.0); Monocytes % 4.2; Neutrophils % 63.9; Platelet Count 233 10^3/uL (130-400); RBC 4.03 10^6/uL (3.93-5.22); RDW 16.4 % (11.7-14.6); RDW-SD 48.6 fL; WBC 4.27 10^3/uL (4.4-10.8)
[2023-01-03 12:03] LABS: ALT 35 U/L (14-59); AST 22 U/L (15-37); Albumin 3.6 g/dL (3.4-5.0); Alkaline Phosphatase 85 U/L (46-116); Anion Gap 8.7 mmol/L (3-11); BUN 12 mg/dL (7-18); Bilirubin, Total 0.4 mg/dL (0.2-1.0); CO2 25.3 mmol/L (21.0-32.0); CREATININE 0.8 mg/dL (0.55-1.02); Calcium 8.3 mg/dL (8.5-10.1); Chloride 105 mmol/L (98-107); Estimated GFR 83.26 (mL/min/1.73m2); Glucose 102 mg/dL (74-106); Magnesium 1.7 mg/dL (1.8-2.4); Potassium 3.1 mmol/L (3.5-5.1); Sodium 139 mmol/L (136-145); Total Protein 6.6 g/dL (6.4-8.2)
[2023-01-07] MEDS: Normal Saline Flush 10 ML SYR IVP (11:21)
[2023-01-07 11:32] LABS: Abs Immature Grans 0.03 10^3/uL (0.0-0.06); Absolute Basophil Count 0.02 10^3/uL (0.0-0.2); Absolute Eosinophil Count 0.03 10^3/uL (0.0-0.7); Absolute Lymphocyte Count 1.17 10^3/uL (1.2-3.4); Absolute Monocyte Count 0.16 10^3/uL (0.1-0.8); Absolute Neutrophil Count 1.51 10^3/uL (1.2-6.7); Basophils % 0.7; HCT 34.5 % (36.0-46.0); HGB 11.4 g/dL (11.2-15.7); Lymphocytes % 40.1; MCH 28.1 pg (27.0-33.0); MCV 85 fL (80-95); MPV 11.5 fL (8.0-11.0); Monocytes % 5.5; Neutrophils % 51.7; Platelet Count 259 10^3/uL (130-400); RBC 4.06 10^6/uL (3.93-5.22); RDW 16.7 % (11.7-14.6); RDW-SD 50.2 fL; WBC 2.92 10^3/uL (4.4-10.8)
[2023-01-07 12:04] LABS: BUN 3 mg/dL (7-18); CREATININE 0.7 mg/dL (0.55-1.02); Calcium 8.7 mg/dL (8.5-10.1); Glucose 106 mg/dL (74-106)
[2023-01-07 12:05] LABS: ALT 30 U/L (14-59); AST 16 U/L (15-37); Albumin 3.4 g/dL (3.4-5.0); Alkaline Phosphatase 83 U/L (46-116); Bilirubin, Total 0.4 mg/dL (0.2-1.0); Chloride 105 mmol/L (98-107); Estimated GFR 97.72 (mL/min/1.73m2); Magnesium 1.7 mg/dL (1.8-2.4); Sodium 140 mmol/L (136-145); Total Protein 6.6 g/dL (6.4-8.2)
[2023-01-10 09:58] LABS: Abs Immature Grans 0.03 10^3/uL (0.0-0.06); Absolute Basophil Count 0.02 10^3/uL (0.0-0.2); Absolute Eosinophil Count 0.03 10^3/uL (0.0-0.7); Absolute Lymphocyte Count 1.51 10^3/uL (1.2-3.4); Absolute Monocyte Count 0.16 10^3/uL (0.1-0.8); Absolute Neutrophil Count 3.08 10^3/uL (1.2-6.7); Basophils % 0.4; Eosinophils % 0.6; HGB 10.8 g/dL (11.2-15.7); Immature Grans % 0.6; Lymphocytes % 31.3; MCH 28.6 pg (27.0-33.0); MCHC 33.8 % (32.0-36.0); MCV 85 fL (80-95); MPV 11.7 fL (8.0-11.0); Monocytes % 3.3; Neutrophils % 63.8; Platelet Count 234 10^3/uL (130-400); RBC 3.78 10^6/uL (3.93-5.22); RDW 17.2 % (11.7-14.6); RDW-SD 51.8 fL; WBC 4.83 10^3/uL (4.4-10.8)
[2023-01-10] MEDS: Normal Saline Flush 10 ML SYR IVP (10:28)
[2023-01-10 10:52] LABS: ALT 45 U/L (14-59); AST 29 U/L (15-37); Albumin 3.5 g/dL (3.4-5.0); Alkaline Phosphatase 88 U/L (46-116); BUN 9 mg/dL (7-18); Bilirubin, Total 0.4 mg/dL (0.2-1.0); CREATININE 0.8 mg/dL (0.55-1.02); Calcium 8.2 mg/dL (8.5-10.1); Chloride 106 mmol/L (98-107); Estimated GFR 83.26 (mL/min/1.73m2); Glucose 119 mg/dL (74-106); Magnesium 1.9 mg/dL (1.8-2.4); Sodium 140 mmol/L (136-145); Total Protein 6.5 g/dL (6.4-8.2)
[2023-01-10 11:01] LABS: Potassium 2.9 mmol/L (3.5-5.1)
[2023-01-15] MEDS: Normal Saline Flush 10 ML SYR IVP (11:05)
[2023-01-15 11:29] LABS: Abs Immature Grans 0.04 10^3/uL (0.0-0.06); Absolute Basophil Count 0.03 10^3/uL (0.0-0.2); Absolute Eosinophil Count 0.04 10^3/uL (0.0-0.7); Absolute Lymphocyte Count 1.12 10^3/uL (1.2-3.4); Absolute Neutrophil Count 2.86 10^3/uL (1.2-6.7); Basophils % 0.7; Eosinophils % 0.9; HCT 38.6 % (36.0-46.0); HGB 12.7 g/dL (11.2-15.7); Immature Grans % 0.9; Lymphocytes % 25.5; MCHC 32.9 % (32.0-36.0); MCV 85 fL (80-95); MPV 11.6 fL (8.0-11.0); Monocytes % 6.8; Neutrophils % 65.2; Platelet Count 293 10^3/uL (130-400); RBC 4.53 10^6/uL (3.93-5.22); RDW 17.6 % (11.7-14.6); RDW-SD 52.5 fL; WBC 4.39 10^3/uL (4.4-10.8)
[2023-01-15 11:53] LABS: ALT 42 U/L (14-59); AST 21 U/L (15-37); Albumin 3.9 g/dL (3.4-5.0); Alkaline Phosphatase 112 U/L (46-116); Anion Gap 11.5 mmol/L (3-11); BUN 7 mg/dL (7-18); Bilirubin, Total 0.6 mg/dL (0.2-1.0); CO2 25.5 mmol/L (21.0-32.0); CREATININE 0.9 mg/dL (0.55-1.02); Calcium 9.4 mg/dL (8.5-10.1); Chloride 104 mmol/L (98-107); Estimated GFR 72.28 (mL/min/1.73m2); Glucose 107 mg/dL (74-106); Magnesium 1.9 mg/dL (1.8-2.4); Potassium 3.5 mmol/L (3.5-5.1); Sodium 141 mmol/L (136-145); Total Protein 7.8 g/dL (6.4-8.2)
[2023-01-22 12:27] LABS: Abs Immature Grans 0.04 10^3/uL (0.0-0.06); Absolute Basophil Count 0.04 10^3/uL (0.0-0.2); Absolute Eosinophil Count 0.03 10^3/uL (0.0-0.7); Absolute Lymphocyte Count 1.04 10^3/uL (1.2-3.4); Absolute Monocyte Count 0.31 10^3/uL (0.1-0.8); Absolute Neutrophil Count 2.46 10^3/uL (1.2-6.7); Eosinophils % 0.8; HCT 39.9 % (36.0-46.0); HGB 13.3 g/dL (11.2-15.7); Lymphocytes % 26.5; MCH 28.4 pg (27.0-33.0); MCHC 33.3 % (32.0-36.0); MCV 85 fL (80-95); MPV 11.1 fL (8.0-11.0); Monocytes % 7.9; Neutrophils % 62.8; Platelet Count 301 10^3/uL (130-400); RBC 4.69 10^6/uL (3.93-5.22); RDW 18.5 % (11.7-14.6); RDW-SD 55.4 fL; WBC 3.92 10^3/uL (4.4-10.8)
[2023-01-22] MEDS: Normal Saline Flush 10 ML SYR IVP (12:32)
[2023-01-22 12:43] LABS: ALT 35 U/L (14-59); AST 22 U/L (15-37); Alkaline Phosphatase 113 U/L (46-116); Anion Gap 11.8 mmol/L (3-11); BUN 4 mg/dL (7-18); Bilirubin, Total 0.5 mg/dL (0.2-1.0); CO2 22.2 mmol/L (21.0-32.0); CREATININE 0.8 mg/dL (0.55-1.02); Calcium 9.7 mg/dL (8.5-10.1); Chloride 102 mmol/L (98-107); Estimated GFR 83.26 (mL/min/1.73m2); Glucose 119 mg/dL (74-106); Magnesium 1.8 mg/dL (1.8-2.4); Potassium 3.3 mmol/L (3.5-5.1); Sodium 136 mmol/L (136-145); Total Protein 7.8 g/dL (6.4-8.2)
[2023-01-24] MEDS: Normal Saline Flush 10 ML SYR IVP (09:48)
[2023-01-24 10:04] LABS: Abs Immature Grans 0.03 10^3/uL (0.0-0.06); Absolute Basophil Count 0.01 10^3/uL (0.0-0.2); Absolute Eosinophil Count 0.02 10^3/uL (0.0-0.7); Absolute Lymphocyte Count 1.32 10^3/uL (1.2-3.4); Basophils % 0.2; Eosinophils % 0.4; HCT 35.6 % (36.0-46.0); Immature Grans % 0.7; Lymphocytes % 29.5; MCH 28.7 pg (27.0-33.0); MCHC 33.7 % (32.0-36.0); MCV 85 fL (80-95); MPV 11.7 fL (8.0-11.0); Monocytes % 4.5; Neutrophils % 64.7; Platelet Count 230 10^3/uL (130-400); RBC 4.18 10^6/uL (3.93-5.22); RDW 18.6 % (11.7-14.6); RDW-SD 57.5 fL; WBC 4.48 10^3/uL (4.4-10.8)
[2023-01-24 10:23] LABS: ALT 30 U/L (14-59); AST 18 U/L (15-37); Albumin 3.7 g/dL (3.4-5.0); Alkaline Phosphatase 93 U/L (46-116); Anion Gap 10.6 mmol/L (3-11); BUN 11 mg/dL (7-18); Bilirubin, Total 0.5 mg/dL (0.2-1.0); CO2 22.4 mmol/L (21.0-32.0); CREATININE 0.9 mg/dL (0.55-1.02); Calcium 8.5 mg/dL (8.5-10.1); Chloride 103 mmol/L (98-107); Estimated GFR 72.28 (mL/min/1.73m2); Glucose 112 mg/dL (74-106); Magnesium 1.6 mg/dL (1.8-2.4); Sodium 136 mmol/L (136-145); Total Protein 6.9 g/dL (6.4-8.2)
[2023-01-29] MEDS: Normal Saline Flush 10 ML SYR IVP (08:38)
[2023-01-29 09:11] LABS: Abs Immature Grans 0.03 10^3/uL (0.0-0.06); Absolute Basophil Count 0.03 10^3/uL (0.0-0.2); Absolute Eosinophil Count 0.03 10^3/uL (0.0-0.7); Absolute Lymphocyte Count 0.92 10^3/uL (1.2-3.4); Absolute Monocyte Count 0.29 10^3/uL (0.1-0.8); Absolute Neutrophil Count 2.83 10^3/uL (1.2-6.7); Basophils % 0.7; Eosinophils % 0.7; HCT 37.8 % (36.0-46.0); Immature Grans % 0.7; Lymphocytes % 22.3; MCH 29.1 pg (27.0-33.0); MCHC 34.4 % (32.0-36.0); MCV 85 fL (80-95); MPV 11.5 fL (8.0-11.0); Neutrophils % 68.6; Platelet Count 253 10^3/uL (130-400); RBC 4.46 10^6/uL (3.93-5.22); RDW 18.1 % (11.7-14.6); RDW-SD 55.3 fL; WBC 4.12 10^3/uL (4.4-10.8)
[2023-01-29 09:30] LABS: ALT 53 U/L (14-59); AST 26 U/L (15-37); Albumin 3.7 g/dL (3.4-5.0); Alkaline Phosphatase 110 U/L (46-116); Anion Gap 13.6 mmol/L (3-11); BUN 9 mg/dL (7-18); Bilirubin, Total 0.6 mg/dL (0.2-1.0); CO2 22.4 mmol/L (21.0-32.0); CREATININE 0.9 mg/dL (0.55-1.02); Calcium 9.1 mg/dL (8.5-10.1); Chloride 101 mmol/L (98-107); Estimated GFR 72.28 (mL/min/1.73m2); Glucose 117 mg/dL (74-106); Magnesium 1.8 mg/dL (1.8-2.4); Sodium 137 mmol/L (136-145); Total Protein 7.3 g/dL (6.4-8.2)
[2023-01-29 09:38] LABS: Potassium 2.8 mmol/L (3.5-5.1)
[2023-01-31] MEDS: Normal Saline Flush 10 ML SYR IVP (08:38)
[2023-01-31 09:27] LABS: ALT 47 U/L (14-59); AST 29 U/L (15-37); Albumin 3.5 g/dL (3.4-5.0); Alkaline Phosphatase 93 U/L (46-116); Anion Gap 10.7 mmol/L (3-11); BUN 7 mg/dL (7-18); Bilirubin, Total 0.6 mg/dL (0.2-1.0); CO2 23.3 mmol/L (21.0-32.0); CREATININE 0.9 mg/dL (0.55-1.02); Calcium 8.4 mg/dL (8.5-10.1); Chloride 107 mmol/L (98-107); Estimated GFR 71.83 (mL/min/1.73m2); Glucose 122 mg/dL (74-106); Magnesium 1.6 mg/dL (1.8-2.4); Sodium 141 mmol/L (136-145); Total Protein 6.6 g/dL (6.4-8.2)
[2023-01-31 09:56] LABS: Potassium 2.6 mmol/L (3.5-5.1)
== END 2023-01-31 23:59 | disposition home or self-care (01) ==
LOC: INF 01:21
PROVIDERS: PCP Nurse Practitioner Family; Visit Provider Internal Medicine
DX: C50.911 Malignant neoplasm of unspecified site of right female breast (principal); Z17.0 Estrogen receptor positive status [ER+]; E03.2 Hypothyroidism due to medicaments and other exogenous substances
CPT/HCPCS: 36591; 80053; 83735; 84443; 85025

== ENCOUNTER 2023-02-05 10:51 | Inpatient (IN) | payer MEDICAID, SELFPAY ==
[2023-02-05] VITALS (27 sets, daily range): BP systolic 100–130; BP diastolic 72–90; PULSE 74–179; RESP 13–23; TEMP 36.5–37; O2SAT 97–100
--- NOTE | 2023-02-05 11:00 | RT.EKG_ITS ---
APPROVED REPORT Exam: Resting ECG Reason for Exam: Dizzy Patient Location: E HR:79 bpm ECG Measurements Heart Rate 79 AXIS DE [id number] P [id number] QRSd 87 QRS -22 QT 384 T 138 QTc 440 Conclusion Atrial fibrillation...V-rate 61- 98, irreg A-activity Abnormal T, consider ischemia, lateral leads...T <-0.20mV, I aVL V5 V6 [address] intervals. No ST segment or T wave abnormalities to suggest occlusive [place]
--- NOTE | 2023-02-05 11:00 | RT.EKG_ITS ---
APPROVED REPORT Exam: Resting ECG Reason for Exam: hypokalemia Patient Location: E HR:83 bpm ECG Measurements Heart Rate 83 AXIS RI [id number] P [id number] QRSd 89 QRS -44 QT 374 T [id number] QTc 440 Conclusion Atrial fibrillation...V-rate 66-102, irreg A-activity Artifact in II, III, aVF, V5, V6 limits interpretation. Appropriate intervals. Artifact in I, III, aVL limits No clear ST segment or T wave abnormalities to suggest occlusive [place]
[2023-02-05] MEDS: Potassium Chloride 20 MEQ TABCR 40 MEQ PO (11:10)
[2023-02-05] MEDS: Lactated Ringers 1,000 ML 2000 ML IV (11:11)
[2023-02-05] MEDS: POTASSIUM CHLORIDE 20 MEQ/100 ML BAG 50 MEQ IVPB ×3 (11:13→20:34)
--- NOTE | 2023-02-05 11:30 | DI.CT_ITS ---
Exam(s) CT LUMBAR SPINE WO EXAM: CT LUMBAR SPINE WO CLINICAL HISTORY: back pain, breast and thyroid ca. TECHNIQUE: Imaging Protocol: Axial computed tomography images with coronal and sagittal reformatted images were created and reviewed COMPARISON: CT CT ABDOMEN PELVIS W from 02/05/2023 FINDINGS: Bones: There are no fractures, listhesis, nor pars defects. There are no lytic osseous lesions evide nt. INDIVIDUAL LEVELS: T12-L1:No disc herniation nor canal stenosis. Facet joints unremarkable. No foraminal stenosis. L1-2: No disc herniation nor canal stenosis. Facet joints unremarkable. No foraminal stenosis. L2-3: No disc herniation nor canal stenosis. Facet joints unremarkable. No Foraminal stenosis L3-4: No disc herniation nor canal stenosis. Facet joints unremarkable. No foraminal stenosis. L4-5: Normal disc height. Mild symmetrical annular bulging. No dominant disc herniation. Central canal dimensions are lower normal. Mild bilateral facet arthropathy. L5-S1: This level exhibits advanced disc space narrowing. There is symmetrical ower posterior annul ar bulging but without a dominant disc herniation. Central canal dimensions are lower normal. No pa rs defects evident at L5 level. Mild-moderate bilateral facet arthropathy. There is no prominent fo raminal stenosis. The visualized sacroiliac joints and sacrum appear unremarkable. PARASPINAL SOFT TISSUES: Visualized paraspinal tissues appear unremarkable. IMPRESSION: 1. Advanced disc space narrowing L5-S1 level. No obvious disc herniation. Central canal dimensions lower normal. No prominent foraminal stenosis this level nor elsewhere in the lumbosacral spinal col umn. 2. No lytic osseous lesions evident, given the history here. Called to ER provider. RADIATION DOSE DELIVERED: Total DLP DATA REPOSITORY: All CT scans at this facility are submitted to the National Radiology Data Registry (NRDR) Dose Index Registry (DIR) with the [employer] (ACR). RADIATION OPTIMIZATION: All CT scans at this facility use at least one of these dose optimization te chniques: automated exposure control; mA and/or kV adjustment per patient size (includes targeted exa ms where dose is matched to clinical indication); or iterative reconstruction.
--- NOTE | 2023-02-05 11:30 | DI.CT_ITS ---
Exam(s) CT ABDOMEN PELVIS W EXAM: CT ABDOMEN PELVIS W CLINICAL HISTORY: abdominal pain, chem/breast ca, back pain. TECHNIQUE: Imaging Protocol: Axial computed tomography images with coronal and sagittal reformatted images were created and reviewed CONTRAST MATERIAL: Intravenous: Omnipaque-350 100cc Oral: None COMPARISON: No exams were available for comparison FINDINGS: VISUALIZED LUNG BASES: No nodules nor pleural effusions evident. ABDOMEN: There is no ascites. Small hiatal hernia noted. No mesenteric masses. LIVER: There are no focal hepatic lesions evident. No dilated intrahepatic ducts. GALLBLADDER/BILIARY: Gallbladder surgically absent. CBD diameter upper normal. PANCREAS: No evidence of pancreatic mass nor dilatation of the pancreatic duct. SPLEEN: Spleen is not enlarged. No obvious intrasplenic lesions. Splenic and portal veins are paten t. ADRENALS: There are no significant adrenal masses. KIDNEYS:No cysts evident. No solid renal masses. No calculi nor hydronephrosis.. ABDOMINAL AORTA: Abdominal aorta is not enlarged. SMA is patent LYMPH NODES:There is no retroperitoneal nor paraaortic adenopathy. ABDOMINAL WALL: No evidence of significant anterior abdominal wall nor inguinal hernia. GI: Stomach is not distended. All the small bowel loops are fluid-filled mildly dilated measuring up to 3 cm. This includes the terminal ileum although there is a 6-7 cm length of terminal ileum which exhibits slight wall thickening, radial or peristaltic. Similar fluid is also seen in the right-shelley e of the colon and transverse colon. The distal half of the colon is collapsed including the rectum. PELVIS: GI: Appendix is not able to be identified.No evidence of sigmoid diverticulitis. LYMPH NODES: There is no intrapelvic nor inguinal adenopathy. REPRODUCTIVE: Uterus size age-appropriate. No abnormal adnexal masses. No free fluid. URINARY BLADDER: No calculi nor obvious masses evident OSSEOUS: No fractures and no significant osseous lesions. Advanced disc space narrowing L5-S1 level. IMPRESSION: 1. There appears to be a diffuse enteritis pattern with fluid-filled small bowel loops measuring up t o 3 cm with the exception of 1 length of terminal ileum approximately 7 cm long which is probably col lapsed from peristalsis although cannot exclude stricture. This is 4 cm in from the ileocecal valve. Nevertheless, this is not a point of obstruction as there is similar appearing fluid in the colon f rom the cecum to the splenic flexure. Left side of the colon is collapsed. Consider enteritis/colit is pattern here. 2. The gallbladder surgically absent. The biliary tree is not dilated. 3. Advanced disc space narrowing L5-S1. No fractures. Called by myself to ER provider. RADIATION DOSE DELIVERED: 1615.5 mGy.cm Total DLP DATA REPOSITORY: All CT scans at this facility are submitted to the National Radiology Data Registry (NRDR) Dose Index Registry (DIR) with the [employer] (ACR). RADIATION OPTIMIZATION: All CT scans at this facility use at least one of these dose optimization te chniques: automated exposure control; mA and/or kV adjustment per patient size (includes targeted exa ms where dose is matched to clinical indication); or iterative reconstruction.
[2023-02-05 12:23] LABS: Lipase 36 U/L (16-77)
[2023-02-05] MEDS: Normal Saline - Diluent 50 ML VIAL IJ (12:43)
[2023-02-05] MEDS: Omnipaque 350 MG/ML 100 ML BTL IJ (12:44)
[2023-02-05] MEDS: Normal Saline Flush 10 ML SYR IVP (12:49)
[2023-02-05] MEDS: MORPHine 4 MG/ML SYR IVP (12:58)
[2023-02-05 13:12] LABS: Troponin I 51 ng/L (<or=60)
--- NOTE | 2023-02-05 15:22 | ED.GENADUL_ITS ---
Discharge Plan Disposition Patient Disposition: Admit to [facility] Discharge Details Clinical Impression: Breast cancer, Colitis, Diarrhea, Acute hypokalemia, Acute dehydration Admit Date/Time: 02/05/23 14:32 Admit Provider: Anthony Katz Attending Provider: Anthony Katz Primary Care Provider: Donna Shay ED Provider: Yesenia Kern Discharge Data Discharge Date/Time-TO BE ENTERED AT DEPARTURE: 02/05/23 16:28 Medical Decision Making Chronically ill-appearing 63-year-old female, pale, presenting with diarrhea and weakness with lightheadedness Denies headache or dizziness. Denies any falls. No abdominal tenderness, mild lumbar spine tenderness appreciated, nonfocal neurological exam, weak Labs reviewed which were ordered by oncology this morning with hypokalemia 2.6 without QTc prolongation, some T wave changes, troponin negative in the absence of chest pain or shortness of breath Magnesium within normal limits, gap of 18, creatinine of 1.1, and bicarb of 20, consistent with likely dehydration, received 2 L of LR, persistently weak CT abdomen and pelvis and lumbar spine were ordered for further evaluation and show evidence of diffuse colitis, patient will need admission for bowel rest and IV hydration and electrolyte supplementation, she is agreeable to admission at this time pending stool and cdiff cultures She is feeling slight improvement in her nausea and pain with medications administered She is agreeable to admission now HPI General Date/Time Provider Initiated Documentation: 02/05/23 11:00 . HPI Narrative: This 63-year-old female with history of thyroid and breast cancer presents with report of persistent diarrhea, nausea, difficulty eating secondary to nausea and vomiting, lightheadedness, and back pain over the course of the past several weeks, worsening today. Today when she was so weak that she was having difficulty ambulating and for her immunotherapy which she did not receive. She was sent over for evaluation secondary to acute dehydration on her labs, hypokalemia. She denies any blood in her stool. She states she has had at least 3 episodes of diarrhea today. She has not had stool samples done per patient. Denies recent antibiotics. Last chemotherapy was a week ago last immunotherapy was approximately 3 weeks ago per patient. Denies any fever or chills. Denies any syncopal events. Denies any chest pain or shortness of breath. Related Data Home Medications Medication Instructions Recorded Confirmed acetaminophen 500 mg tablet (Mapap 500 mg PO Q8H PRN 11/30/14 02/05/23 Extra Strength) lorazepam 1 mg tablet 1 mg PO PRN PRN Anxiety 11/30/14 02/05/23 omeprazole 20 mg capsule,delayed 20 mg PO DAILY 01/08/22 02/05/23 release diphenoxylate-atropine 2.5 1 tab PO QID PRN 02/05/23 02/05/23 mg-0.025 mg tablet levothyroxine 125 mcg tablet 125 mcg PO DAILY 02/05/23 02/05/23 ondansetron 8 mg disintegrating 8 mg PO Q8H PRN 02/05/23 02/05/23 tablet prochlorperazine maleate 10 mg 10 mg PO Q6H PRN 02/05/23 02/05/23 tablet Allergies Allergy/AdvReac Type Severity Reaction Status Date / Time etodolac [From Lodine] Allergy swelling Unverified 02/05/23 10:58 of hands Sulfa (Sulfonamide Allergy rash, Unverified 02/05/23 10:58 Antibiotics) hand/arm swelling latex AdvReac Intermediate Hives Unverified 02/05/23 10:58 ciprofloxacin [From Cipro] AdvReac N/V Unverified 02/05/23 10:58 ciprofloxacin HCl AdvReac N/V Unverified 02/05/23 10:58 [From Cipro] General Stated Complaint: GenMedical FISH: 3 PFSH All Active Problems (Updated 02/06/23 @ 20:56 by ALEXANDER Spencer) Colitis (Acute) Diarrhea (Acute) Acute hypokalemia (Acute) Acute dehydration (Acute) Discharge planning issues (Acute) DVT prophylaxis (Acute) Back pain (Acute) Atrial fibrillation (Chronic) C. 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 GERD (gastroesophageal reflux disease) History of thyroid cancer Hyperlipidemia Malaise and fatigue [place]'s disease Pneumonia Prediabetes Rosacea Surgical History (Updated 08/23/22 @ 13:55 by Mabel Ng RN) H/O colonoscopy (~08/10/22) H/O esophagogastroduodenoscopy History of laryngoplasty History of partial hysterectomy Hx of cholecystectomy Hx of thyroidectomy Social History Smoking/Tobacco Use Status: Former Tobacco Use Quit Date: 06/03/83 Smoking risk assessment performed?: Yes Alcohol Intake: current Alcohol Intake frequency: a few times a month Drug use: Rarely Substance use type: marijuana Details: marijuana inh t-2 Housing: apartment Do you feel safe at home: Yes Do you feel safe in your relationship?: Yes Course Vital Signs Vital signs: Vital Signs Temperature 36.5 C 02/05/23 10:56 Pulse 84 02/05/23 10:56 Respiratory Rate 18 02/05/23 10:56 Blood Pressure 117/72 02/05/23 10:56 Pulse Oximetry 99 02/05/23 10:56 Temperature 36.5 C 02/05/23 10:56 Temperature Source Tympanic 02/05/23 10:56 Pulse 84 02/05/23 10:56 Respiratory Rate 18 02/05/23 10:56 Respiratory Effort Normal 02/05/23 11:00 Blood Pressure 117/72 02/05/23 10:56 Blood Pressure Position Supine 02/05/23 10:56 Pulse Oximetry 99 02/05/23 10:56 Oxygen Delivery Method Room Air 02/05/23 10:56 Oxygen Flow Rate 0 02/05/23 10:56 Pain Level 6 02/05/23 12:58 Lab/Test Results Lab/Test Results: Laboratory Tests Range/Units 02/05/23 02/05/23 09:05 09:05 Troponin I (<or=60) ng/L 51 C-Reactive Protein (0.0-0.3) mg/dL 0.30 Lipase (16-77) U/L 36 Critical Care Time Critical Care Time Attestation: Approximately 35 minutes of critical care time secondary to acute hypokalemia and QTc changes on EKG, administer IV potassium, p.o. potassium, telemetry monitoring and admission to the hospital
[2023-02-05 15:40] LABS: Bilirubin Small (Negative); Blood Negative (Negative); Clarity Clear (Clear); Glucose Negative (Negative); Ketones >=160 mg/dL (Negative); Leukocyte Esterase Negative (Negative); Nitrite Negative (Negative); Specific Gravity <= 1.005 (1.005-1.025); Urobilinogen 0.2 mg/dL (Up to 0.2); pH 5.5 (5-8)
[2023-02-05 16:08] LABS: Epithelial Cells Rare HPF (Negative); RBC 0-2 HPF (0-2); WBC 0-2 HPF (0-5)
[2023-02-05 16:09] LABS: Bacteria Rare HPF (Negative); C & S Indicated? No; Casts Negative LPF (Negative); Crystals Negative HPF (Negative); Mucus Negative (Negative)
--- NOTE | 2023-02-05 16:27 | NUR.NOTE ---
Nursing Note: this RN took report from microlab patient pos for c-diff provider aware
[2023-02-05 16:28] LABS: C Diff PCR Positive (Negative)
--- NOTE | 2023-02-05 17:15 | RT.EKG_ITS ---
APPROVED REPORT Exam: Resting ECG Reason for Exam: rapid HR/afib Patient Location: I HR:86 bpm ECG Measurements Heart Rate 86 AXIS FL [id number] P [id number] QRSd 85 QRS -27 QT 366 T 183 QTc 438 Conclusion Atrial fibrillation...V-rate 66-109, irreg A-activity Borderline left axis deviation...QRS axis (-15,-29) Nonspecific repol abnormality, diffuse leads...ST dep, T flat/neg, ant/lat/inf
--- NOTE | 2023-02-05 17:22 | W.PM.HP.N ---
Date of service: 02/05/23 Time of Service: 17:22 Assessment and Plan Assessment and plan (1) C. difficile colitis: Status: Acute Assessment and plan: Diarrhea x 3 today - stool sample positive for c diff. Vancomycin 125 mg QID started Imodium prn NS @ 150 ml/h (2) Dehydration: Status: Acute Assessment and plan: Rec'd 2 l LR in ED NS 150 ml/h Check labs in am (3) Hypokalemia: Status: Acute Assessment and plan: 2.6, replete, monitor BMP 2000h ordered (4) Back pain: Status: Acute Assessment and plan: Back pain, no injury hydromorphone 1 mg IV q 4h prn lidocaine patch Heating pad (5) Atrial fibrillation: Status: Chronic Assessment and plan: EKG - AFib - HR up to 160's self limiting now 90s - lopressor 5 mg IVP prn sustained HR > 120 and AF SBP > 110 (6) Breast cancer: Status: Chronic Assessment and plan: Being tx at [facility]; chemo and immunotherapy Consult Oncology pending - call 02/06 (7) DVT prophylaxis: Status: Acute Assessment and plan: Enoxaparin (8) Discharge planning issues: Status: Acute Assessment and plan: Discharge to home when medically stable discussed with Dr Katz History of Present Illness History of Present Illness Chief Complaint: Dehydration, diarrhea, weakness Narrative: is 63-year-old female with past medical history of thyroid and breast cancer who presented to the [facility] ED for evaluation of persistent diarrhea, nausea, difficulty eating secondary to nausea and vomiting, lightheadedness, and back pain over the course of the past several weeks, worsening today.? She was seen at [facility] and was sent over for evaluation secondary to acute dehydration on her labs and hypokalemia.? She denied any blood in her stool.? She stated she has had at least 3 episodes of diarrhea today.? She denied recent antibiotics.? Per patient report, last chemotherapy was a week ago; last immunotherapy was approximately 3 weeks ago. Patient denied any fever, chills, chest pain, shortness of breath or syncope. Patient is placed on observation status on the medical floor for further testing and treatment. Patient is a full code. Review of Systems All systems reviewed & are unremarkable except as noted in HPI and below PFSH All Active Problems (Updated 02/05/23 @ 17:58 by Shikha Barragan NP) Discharge planning issues (Acute) DVT prophylaxis (Acute) Back pain (Acute) Atrial fibrillation (Chronic) C. 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 GERD (gastroesophageal reflux disease) History of thyroid cancer Hyperlipidemia Malaise and fatigue [place]'s disease Pneumonia Prediabetes Rosacea Surgical History (Updated 08/23/22 @ 13:55 by Mabel Ng RN) H/O colonoscopy (~08/10/22) H/O esophagogastroduodenoscopy History of laryngoplasty History of partial hysterectomy Hx of cholecystectomy Hx of thyroidectomy Social History Smoking/Tobacco Use Status: Former Tobacco Use Quit Date: 06/03/83 Smoking risk assessment performed?: Yes Alcohol Intake: current Alcohol Intake frequency: a few times a month Drug use: Rarely Substance use type: marijuana Details: marijuana inh t-2 Housing: apartment Do you feel safe at home: Yes Do you feel safe in your relationship?: Yes Meds Allergies and Home Medications Allergies Allergy/AdvReac Type Severity Reaction Status Date / Time etodolac [From Lodine] Allergy swelling Unverified 02/05/23 10:58 of hands Sulfa (Sulfonamide Allergy rash, Unverified 02/05/23 10:58 Antibiotics) hand/arm swelling latex AdvReac Intermediate Hives Unverified 02/05/23 10:58 ciprofloxacin [From Cipro] AdvReac N/V Unverified 02/05/23 10:58 ciprofloxacin HCl AdvReac N/V Unverified 02/05/23 10:58 [From Cipro] Home Medications Medication Instructions Recorded Confirmed Type acetaminophen 500 mg tablet (Mapap 500 mg PO Q8H PRN 11/30/14 02/05/23 History Extra Strength) lorazepam 1 mg tablet 1 mg PO PRN PRN Anxiety 11/30/14 02/05/23 History omeprazole 20 mg capsule,delayed 20 mg PO DAILY 01/08/22 02/05/23 History release diphenoxylate-atropine 2.5 1 tab PO QID PRN 02/05/23 02/05/23 History mg-0.025 mg tablet levothyroxine 125 mcg tablet 125 mcg PO DAILY 02/05/23 02/05/23 History ondansetron 8 mg disintegrating 8 mg PO Q8H PRN 02/05/23 02/05/23 History tablet prochlorperazine maleate 10 mg 10 mg PO Q6H PRN 02/05/23 02/05/23 History tablet Exam Const General: no acute distress Orientation: alert HENMT Head: normal to inspection Ears: external ears normal General nose exam: external nose normal Mouth: moist mucous membranes Eyes General: appearance normal, both eyes and all related structures Neck Neck: normal visual inspection Resp Effort & Inspection: normal respiratory effort and able to speak in complete sentences Cardio Rate: regular rate Skin General skin exam: no rashes or lesions noted Neuro General: patient alert and patient oriented x3 Extrem General: normal to inspection Psych Mental Status: mental status grossly normal Results Labs 02/06/23 05:35 02/05/23 22:47 Labs: Laboratory Results - last 24 hr 02/05/23 02/05/23 02/05/23 09:05 09:05 15:27 Troponin I 51 C-Reactive Protein 0.30 Lipase 36 Urine Color Yellow Urine Clarity Clear Urine pH 5.5 Ur Specific [place] <= 1.005 Urine Protein 30 H Urine Ketones >=160 H Urine Blood Negative Urine Nitrite Negative Urine Bilirubin Small H Urine Urobilinogen 0.2 Ur Leukocyte Esterase Negative Urine RBC 0-2 Urine WBC 0-2 Ur Epithelial Cells Rare Urine Crystals Negative Urine Bacteria Rare Urine Casts Negative Urine Mucus Negative Ur Culture Indicated? No Urine Glucose Negative Stl C.difficile Tox PCR 02/05/23 15:27 Troponin I C-Reactive Protein Lipase Urine Color Urine Clarity Urine pH Ur Specific [place] Urine Protein Urine Ketones Urine Blood Urine Nitrite Urine Bilirubin Urine Urobilinogen Ur Leukocyte Esterase Urine RBC Urine WBC Ur Epithelial Cells Urine Crystals Urine Bacteria Urine Casts Urine Mucus Ur Culture Indicated? Urine Glucose Stl C.difficile Tox PCR Positive A Last Vital Signs Temp 37.0 C 02/05/23 16:52 Pulse 99 H 02/05/23 16:52 Resp 16 02/05/23 16:52 BP 108/78 02/05/23 16:52 Pulse Ox 97 02/05/23 16:52 Time Spent Time spent with Patient: 55-74 minutes Time was spent: preparing to see the patient(eg.review tests), obtaining and/or reviewing separately otained hiistory, ordering medications,tests, procedures, referring, communicating with other health healthcare customer service, indepentently interpreting results, counseling the patient and care coordination
[2023-02-05] MEDS: Lactated Ringers 1,000 ML 150 ML IV (18:04)
[2023-02-05] MEDS: Vancomycin 125 MG CAP PO (18:06)
[2023-02-05] MEDS: Loperamide 2 MG CAP 4 MG PO (18:08)
[2023-02-05] MEDS: Normal Saline 1,000 ML 150 ML IV (18:31)
[2023-02-05] MEDS: Ondansetron 4 MG/2 ML VIAL IVP (18:36)
[2023-02-05] MEDS: Lidocaine 5% Patch 2 PATCH TP (18:51)
--- NOTE | 2023-02-05 18:56 | TELEP.MEDR_ITS ---
Date of service: 02/05/23 Time of Service: 18:56 Telepharmacy Home Med Rec Allergies Allergies: etodolac [From Lodine] Allergy (Unverified 02/05/23 10:58) swelling of hands Sulfa (Sulfonamide Antibiotics) Allergy (Unverified 02/05/23 10:58) rash, hand/arm swelling latex Adverse Reaction (Intermediate, Unverified 02/05/23 10:58) Hives ciprofloxacin [From Cipro] Adverse Reaction (Unverified 02/05/23 10:58) N/V ciprofloxacin HCl [From Cipro] Adverse Reaction (Unverified 02/05/23 10:58) N/V Interview Person Interviewed: * patient Quality Quality of Interview/Accuracy of Medication List: Excellent Sources Sources used to compile medication list: [email or web address] Medication List and [employer] [place] [employer] Changes made to Home Medication List: ADDITIONS: * Compazine 10mg PO Q6H PRN nausea DELETIONS: * olanzapine * ibuprofen * KCl CHANGES: * Levothyroxine 125mcg PO daily (changed from 112mcg daily) Additional Notes Additional Notes: * none Recommended Changes Recommended Changes(reason for recommendation): * none Attestation: The home medication list is now updated to the best of my knowledge and is ready to be reconciled by the provider. Please contact the TelePharmacy Medication Reconciliation Pharmacist at for any questions.
--- NOTE | 2023-02-05 18:56 | TELEP.MEDREC ---
Date of service: 02/05/23 Time of Service: 18:56 Telepharmacy Home Med Rec Allergies Allergies: etodolac [From Lodine] Allergy (Unverified 02/05/23 10:58) swelling of hands Sulfa (Sulfonamide Antibiotics) Allergy (Unverified 02/05/23 10:58) rash, hand/arm swelling latex Adverse Reaction (Intermediate, Unverified 02/05/23 10:58) Hives ciprofloxacin [From Cipro] Adverse Reaction (Unverified 02/05/23 10:58) N/V ciprofloxacin HCl [From Cipro] Adverse Reaction (Unverified 02/05/23 10:58) N/V Interview Person Interviewed: patient Quality Quality of Interview/Accuracy of Medication List: Excellent Sources Sources used to compile medication list: [employer] Medication List and [employer] Changes made to Home Medication List: ADDITIONS: Compazine 10mg PO Q6H PRN nausea DELETIONS: olanzapine ibuprofen KCl CHANGES: Levothyroxine 125mcg PO daily (changed from 112mcg daily) Additional Notes Additional Notes: none Recommended Changes Recommended Changes(reason for recommendation): none Attestation: The home medication list is now updated to the best of my knowledge and is ready to be reconciled by the provider. Please contact the TelePharmacy Medication Reconciliation Pharmacist at for any questions.
[2023-02-05] MEDS: Loperamide 2 MG CAP PO (21:34)
[2023-02-05] MEDS: Zolpidem 10 MG TAB PO (22:09)
[2023-02-05 23:07] LABS: Anion Gap 13.2 mmol/L (3-11); BUN 5 mg/dL (7-18); CO2 20.8 mmol/L (21.0-32.0); CREATININE 0.7 mg/dL (0.55-1.02); Calcium 8.5 mg/dL (8.5-10.1); Chloride 105 mmol/L (98-107); Estimated GFR 97.12 (mL/min/1.73m2); Glucose 105 mg/dL (74-106); Potassium 3.2 mmol/L (3.5-5.1); Sodium 139 mmol/L (136-145)
[2023-02-06] VITALS (11 sets, daily range): BP systolic 97–110; BP diastolic 68–80; PULSE 66–150; RESP 16; TEMP 36–36.9; O2SAT 96–100
[2023-02-06] MEDS: Vancomycin 125 MG CAP PO ×5 (00:30→23:48)
[2023-02-06] MEDS: Normal Saline 1,000 ML 150 ML IV ×2 (00:30→07:07)
[2023-02-06] MEDS: Loperamide 2 MG CAP PO ×3 (03:26→15:44)
[2023-02-06] MEDS: Levothyroxine 125 MCG TAB PO (05:51)
[2023-02-06] MEDS: Normal Saline Flush 10 ML SYR IVP (06:20)
[2023-02-06] MEDS: Patch Removal 1 EACH TP (07:07)
[2023-02-06 07:36] LABS: Abs Immature Grans 0.03 10^3/uL (0.0-0.06); Absolute Basophil Count 0.03 10^3/uL (0.0-0.2); Absolute Eosinophil Count 0.03 10^3/uL (0.0-0.7); Absolute Lymphocyte Count 0.69 10^3/uL (1.2-3.4); Absolute Monocyte Count 0.35 10^3/uL (0.1-0.8); Absolute Neutrophil Count 1.63 10^3/uL (1.2-6.7); Basophils % 1.1; Eosinophils % 1.1; HCT 33.9 % (36.0-46.0); HGB 11.3 g/dL (11.2-15.7); Immature Grans % 1.1; MCH 28.9 pg (27.0-33.0); MCHC 33.3 % (32.0-36.0); MCV 87 fL (80-95); Monocytes % 12.7; Platelet Count 226 10^3/uL (130-400); RBC 3.91 10^6/uL (3.93-5.22); RDW 19.9 % (11.7-14.6); WBC 2.76 10^3/uL (4.4-10.8)
[2023-02-06 07:53] LABS: ALT 17 U/L (14-59); AST < 5 U/L (15-37); Albumin 2.9 g/dL (3.4-5.0); Alkaline Phosphatase 83 U/L (46-116); Anion Gap 12.8 mmol/L (3-11); BUN 5 mg/dL (7-18); Bilirubin, Total 0.4 mg/dL (0.2-1.0); CO2 20.2 mmol/L (21.0-32.0); CREATININE 0.7 mg/dL (0.55-1.02); Calcium 8.2 mg/dL (8.5-10.1); Chloride 108 mmol/L (98-107); Estimated GFR 97.12 (mL/min/1.73m2); Glucose 107 mg/dL (74-106); Magnesium 1.6 mg/dL (1.8-2.4); Sodium 141 mmol/L (136-145); Total Protein 5.6 g/dL (6.4-8.2)
[2023-02-06 07:56] LABS: Potassium 2.7 mmol/L (3.5-5.1)
[2023-02-06] MEDS: Metoprolol 25 MG TAB PO (09:17)
[2023-02-06] MEDS: Ondansetron 4 MG/2 ML VIAL IVP (09:17)
[2023-02-06] MEDS: Omeprazole 20 MG CAPCR PO (09:17)
--- NOTE | 2023-02-06 09:25 | PDOC.CMIN ---
Date of service: 02/06/23 Time of Service: 09:26 Care Management Initial Assmt Initial Assessment REASON FOR HOSPITALIZATION:: Dehydration, enterocolitis PREVIOUS FUNCTIONAL STATUS/SOCIAL/FAMILY SUPPORTS:: Shea lives in [facility], alone. Her sister lives nearby and is supportive. She is independent at baseline. CURRENT FUNCTIONAL STATUS:: Shea was on the phone when CM attempted to meet with her. She did not express any concerns and asked that CM visit tomorrow. Per report, she continues to have frequent loose stools. Her potassium and magnesium were replaced today. CM will continue to follow. ADVANCE DIRECTIVES:: Not on file; CM will offer forms. Has patient been provided with info about the portal/API?: Yes Did the patient sign up for the portal?: No CODE STATUS:: Full Code INSURANCE COVERAGE / FINANCIAL ISSUES:: [employer] CURRENT HOME/COMMUNITY SERVICES/EQUIPMENT:: No current services. PRIMARY CARE PHYSICIAN:: Donna Shay POTENTIAL DISCHARGE NEEDS:: Evaluations for further needs, follow up appointments. PATIENT/FAMILY EDUCATION NEEDS:: Review discharge instructions and limitations, discussion of self care needs including ask me three. ANTICIPATED BARRIERS TO DISCHARGE:: None identified. TRANSPORTATION:: Via private vehicle by family. PLAN:: Anticipate Shea will return home when medically cleared. Her sister will drive her home via private vehicle. She will follow up with her PCP and discharge plan of care. CM will continue to follow. PFSH All Active Problems (Updated 02/05/23 @ 17:58 by Shikha Barragan NP) Discharge planning issues (Acute) DVT prophylaxis (Acute) Back pain (Acute) Atrial fibrillation (Chronic) C. 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 GERD (gastroesophageal reflux disease) History of thyroid cancer Hyperlipidemia Malaise and fatigue Bro[place]'s disease Pneumonia Prediabetes Rosacea Surgical History (Updated 08/23/22 @ 13:55 by Mabel Ng RN) H/O colonoscopy (~08/10/22) H/O esophagogastroduodenoscopy History of laryngoplasty History of partial hysterectomy Hx of cholecystectomy Hx of thyroidectomy Social History Smoking/Tobacco Use Status: Former Tobacco Use Quit Date: 06/03/83 Smoking risk assessment performed?: Yes Alcohol Intake: current Alcohol Intake frequency: a few times a month Drug use: Rarely Substance use type: marijuana Details: marijuana inh t-2 Housing: apartment Do you feel safe at home: Yes Do you feel safe in your relationship?: Yes
[2023-02-06] MEDS: Enoxaparin 80 MG/0.8 ML SYR SC ×2 (11:33→22:53)
[2023-02-06 11:40] LABS: Campylobacter PCR Negative (Negative); Salmonella PCR Negative (Negative); Shiga Toxin PCR Negative (Negative); Shigella/Enteroinvasive Ecoli Negative (Negative)
[2023-02-06] MEDS: Acetaminophen 325 MG TAB PO ×3 (11:42→21:43)
[2023-02-06] MEDS: Potassium Chloride Liquid 20 MEQ PKT 40 MEQ PO (12:25)
--- NOTE | 2023-02-06 15:42 | CHAPLAIN ---
Shea was sitting up in bed visiting with her sister when I stopped in. She told me she spent most of the day in the ED, and was admitted about 5 p.m. She is currently receiving chemo for breast cancer and wasn't able to have her chemo treatment yesterday. 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 She has a cat, Heather at home that Shea said is a real comfort to her. I will continue to visit and check in with her tomorrow.
[2023-02-06] MEDS: Lidocaine 5% Patch 2 PATCH TP (15:44)
--- NOTE | 2023-02-06 15:54 | W.PM.PROGNOT ---
Date of Service Date of service: 02/06/23 Time of Service: 15:54 Assessment and Plan Assessment and plan (1) C. difficile colitis: Status: Acute Assessment and plan: Still having frequent loose stools now with some black flecks. She is on full dose Lovenox. We will guaiac her stool. Continue the vancomycin p.o. Continue Imodium. Change IV fluids to normal saline with 20 potassium at 100 cc an hour. (2) Dehydration: Status: Acute Assessment and plan: Appears to be fully rehydrated. P.o. intake is minimal. We will continue with maintenance IV fluids with supplemental potassium. (3) Hypokalemia: Status: Acute Assessment and plan: Potassium 2.7 today give additional 40 mEq and ordered 20 mEq twice daily. Also added magnesium supplementation for magnesium of 1.6. IV fluids with potassium. Recheck levels in the a.m. (4) Back pain: Status: Acute Assessment and plan: Back pain is stable. Continue present meds (5) Atrial fibrillation: Status: Chronic Assessment and plan: Heart rate accelerated to 154 with activity. She continues in atrial fibrillation. Echocardiogram today is pending. She is a candidate for anticoagulation. Guaiac stools to be sure there is no contraindication to anticoagulation. This appears to be a new diagnosis for her. (6) Breast cancer: Status: Chronic Assessment and plan: In active treatment for her breast cancer currently on chemotherapy with plans to receive monoclonal antibody treatments. Consult with Dr. Jacobs regarding ongoing treatment. (7) DVT prophylaxis: Status: Acute Assessment and plan: Full dose enoxaparin (8) Discharge planning issues: Status: Acute Assessment and plan: Discharge to home when medically stable Subjective Subjective Interval history since last seen: Patient still feels lousy. She has to run to the bathroom after certain food and liquid intake. She has noticed a change in the color of the stool, now there are some black flecks. IV was running at 150 cc an hour, she was running to the bathroom to urinate frequently. No chest pain no shortness of breath. She had a rapid heart rate when she got up to go to the bathroom into the 150s, this settled down as soon as she got back to bed. She got started on metoprolol. She had an echocardiogram today, pending. She got potassium replacement and started on magnesium today Exam Narrative Exam Narrative: On exam she is very pleasant and does not appear in any significant distress she is fully cooperative she can sit up on the side of the bed without difficulty. Her posterior lung exam sounded completely clear heart sounded irregular abdomen was overall soft and had no focal tenderness. Lower extremity showed no significant edema. Objective Last Vital Signs Temp 36.8 C 02/06/23 14:47 Pulse 70 02/06/23 14:47 Resp 16 02/06/23 14:47 BP 110/76 02/06/23 14:47 Pulse Ox 97 02/06/23 14:47 Laboratory Results - last 24 hr 02/05/23 02/05/23 02/05/23 15:27 15:27 15:27 WBC RBC Hgb Hct MCV MCH MCHC RDW Plt Count MPV Immature Gran % Neutrophils % Lymphocytes % Monocytes % Eosinophils % Basophils % Nucleated RBC % Absolute Neutrophils Absolute Lymphocytes Absolute Monocytes Absolute Eosinophils Absolute Basophils Sodium Potassium Chloride Carbon Dioxide Anion Gap BUN Creatinine Est GFR (CKD-EPI 2020) Glucose Calcium Magnesium Total Bilirubin AST ALT Alkaline Phosphatase Total Protein Albumin Urine RBC 0-2 Urine WBC 0-2 Ur Epithelial Cells Rare Urine Crystals Negative Urine Bacteria Rare Urine Casts Negative Urine Mucus Negative Ur Culture Indicated? No Stool Campylobacter PCR Negative Stl C.difficile Tox PCR Positive A Stool Salmonella PCR Negative Stool Shigella PCR Negative Shiga Toxin (PCR) Negative 02/05/23 02/06/23 02/06/23 22:47 06:15 06:15 WBC 2.76 L RBC 3.91 L Hgb 11.3 D Hct 33.9 L MCV 87 MCH 28.9 MCHC 33.3 RDW 19.9 H Plt Count 226 MPV 12.0 H Immature Gran % 1.1 Neutrophils % 59.0 Lymphocytes % 25.0 Monocytes % 12.7 Eosinophils % 1.1 Basophils % 1.1 Nucleated RBC % 0.0 Absolute Neutrophils 1.63 Absolute Lymphocytes 0.69 L Absolute Monocytes 0.35 Absolute Eosinophils 0.03 Absolute Basophils 0.03 Sodium 139 141 Potassium 3.2 L 2.7 L* Chloride 105 108 H Carbon Dioxide 20.8 L 20.2 L Anion Gap 13.2 H 12.8 H BUN 5 L 5 L Creatinine 0.7 0.7 Est GFR (CKD-EPI 2020) 97.12 97.12 Glucose 105 107 H Calcium 8.5 8.2 L Magnesium 1.6 L Total Bilirubin 0.4 AST < 5 L ALT 17 Alkaline Phosphatase 83 Total Protein 5.6 L Albumin 2.9 L Urine RBC Urine WBC Ur Epithelial Cells Urine Crystals Urine Bacteria Urine Casts Urine Mucus Ur Culture Indicated? Stool Campylobacter PCR Stl C.difficile Tox PCR Stool Salmonella PCR Stool Shigella PCR Shiga Toxin (PCR) Reviewed Pertinent PMH: Yes Time Spent with Patient Time Spent with Patient: 35-49 minutes Time was spent: preparing to see the patient(eg.review tests), obtaining and/or reviewing separately [facility] hi[facility], ordering medications,tests, procedures, referring, communicating with other health career center advisor, indepentently interpreting results and counseling the patient
[2023-02-06] MEDS: Potassium Chloride 10 MEQ CAPCR 20 MEQ PO (17:24)
[2023-02-06] MEDS: POTASSIUM CHLORIDE/0.9% NACL 1,000 ML 100 MEQ IV (18:27)
[2023-02-06 19:00] LABS: Potassium 3.2 mmol/L (3.5-5.1)
[2023-02-06] MEDS: Magnesium Oxide 400 MG TAB PO (21:43)
[2023-02-07] VITALS (9 sets, daily range): BP systolic 99–122; BP diastolic 66–83; PULSE 72–98; RESP 16–18; TEMP 36.3–36.8; O2SAT 97–99
[2023-02-07] MEDS: POTASSIUM CHLORIDE/0.9% NACL 1,000 ML 100 MEQ IV ×2 (03:09→13:15)
[2023-02-07] MEDS: Loperamide 2 MG CAP PO ×2 (03:12→08:25)
[2023-02-07] MEDS: Ondansetron 4 MG/2 ML VIAL IVP ×3 (03:31→21:57)
[2023-02-07] MEDS: Levothyroxine 125 MCG TAB PO (06:32)
[2023-02-07] MEDS: Vancomycin 125 MG CAP PO ×4 (06:32→23:56)
[2023-02-07] MEDS: Lidocaine Patch Removal 2 EACH TP (06:33)
[2023-02-07 07:25] LABS: Abs Immature Grans 0.04 10^3/uL (0.0-0.06); Absolute Basophil Count 0.05 10^3/uL (0.0-0.2); Absolute Eosinophil Count 0.07 10^3/uL (0.0-0.7); Basophils % 1.5; Eosinophils % 2.1; HCT 35.4 % (36.0-46.0); HGB 11.8 g/dL (11.2-15.7); Immature Grans % 1.2; Lymphocytes % 33.6; MCH 29.1 pg (27.0-33.0); MCHC 33.3 % (32.0-36.0); MCV 87 fL (80-95); MPV 12.4 fL (8.0-11.0); Monocytes % 12.2; Neutrophils % 49.4; Platelet Count 235 10^3/uL (130-400); RBC 4.06 10^6/uL (3.93-5.22); RDW 20.3 % (11.7-14.6); RDW-SD 63.6 fL; WBC 3.27 10^3/uL (4.4-10.8)
[2023-02-07 07:28] LABS: Absolute Neutrophil Count 1.62 10^3/uL (1.2-6.7)
[2023-02-07 07:35] LABS: Anion Gap 12.5 mmol/L (3-11); BUN 2 mg/dL (7-18); CO2 20.5 mmol/L (21.0-32.0); CREATININE 0.6 mg/dL (0.55-1.02); Calcium 8.3 mg/dL (8.5-10.1); Chloride 109 mmol/L (98-107); Glucose 93 mg/dL (74-106); Potassium 3.3 mmol/L (3.5-5.1); Sodium 142 mmol/L (136-145)
[2023-02-07 07:53] LABS: Anisocytosis 2+; Diff Comment RBC Morph Reviewed
[2023-02-07 07:54] LABS: Polychromasia Present
[2023-02-07] MEDS: Acetaminophen 325 MG TAB PO ×2 (08:24→20:49)
[2023-02-07] MEDS: Omeprazole 20 MG CAPCR PO (08:25)
[2023-02-07] MEDS: Magnesium Oxide 400 MG TAB PO ×2 (08:25→20:48)
[2023-02-07] MEDS: POTASSIUM CHLORIDE 10 MEQ/100 ML BAG 100 MEQ IVPB ×4 (08:45→12:08)
[2023-02-07] MEDS: Potassium Chloride 10 MEQ CAPCR 20 MEQ PO ×4 (08:55→20:49)
--- NOTE | 2023-02-07 09:51 | CMPROGNOTE_ITS ---
Date of service: 02/07/23 Time of Service: 09:51 Care Management Progress Note Progress Note Text Progress Note Text: S/O: Shea was sitting up in bed when CM met with her. She stated that she is happy with the care she is receiving at [facility]. She reported that per MD, she may remain inpatient for 24-48 hours, when she is able to eat/drink, and her labs are stable. She is comfortable with this plan, and does not feel that she will need any additional services in the community. CM will continue to follow. A: Shea is a 63 year old female admitted to [facility] on 02/05/23 for dehydration, enterocolitis. P: Anticipate Shea will return home when medically cleared. Her sister will drive her home via private vehicle. She will follow up with her PCP and discharge plan of care. CM will continue to follow.
[2023-02-07] MEDS: HYDROmorphone 2 MG/ML SYR 1 MG IVP (10:00)
[2023-02-07] MEDS: Enoxaparin 80 MG/0.8 ML SYR SC (10:00)
--- NOTE | 2023-02-07 13:41 | W.PM.PROGNOT ---
Date of Service Date of service: 02/07/23 Time of Service: 13:42 Assessment and Plan Assessment and plan (1) C. difficile colitis: Status: Acute Assessment and plan: Frequent loose stools. Some black flecks. Stools have been guaiac negative x3. Continue the vancomycin p.o. Continue Imodium. IV fluids normal saline with 20 potassium at 100 cc an hour. (2) Hypokalemia: Status: Acute Assessment and plan: Potassium 3.3 today give additional 20 mEq and ordered 20 mEq twice daily. Also added magnesium supplementation for magnesium of 1.6. IV fluids with potassium. Recheck levels in the a.m. (3) Back pain: Status: Acute Assessment and plan: Back pain is stable. Continue present meds (4) Atrial fibrillation: Status: Chronic Assessment and plan: She continues in atrial fibrillation on telemetry. Her echocardiogram showed A-fib LV function was normal LVEF 55 to 60%. No segmental wall abnormalities. Will start on Eliquis 5 mg twice daily and discontinue Lovenox. Blood pressures been a little soft cut back the metoprolol to 12.5 mg p.o. twice daily. Continue to monitor on telemetry. (5) Breast cancer: Status: Chronic Assessment and plan: In active treatment for her breast cancer currently on chemotherapy with plans to receive monoclonal antibody treatments. Consulted with Dr. Jacobs regarding ongoing treatment. He agrees with the current medical plan. (6) Discharge planning issues: Status: Acute Assessment and plan: Discharge to home when medically stable Subjective Subjective Interval history since last seen: Overall showing gradual improvement. She has a little bit more of an appetite but still only eating a few bites. She has some mild left upper quadrant crampy sensation. She is still having frequent bowel movements. Approximately 3 overnight. No chest pain no palpitations. Exam Narrative Exam Narrative: On exam she is ambulating independently. She has no respiratory difficulty heart sounds irregular abdomen overall soft and minimally tender in the left upper quadrant nontender in the other 3 quadrants no masses are palpable no guarding or rebound. Lower extremities no CCE. Objective Last Vital Signs Temp 36.4 C L 02/07/23 10:33 Pulse 72 02/07/23 10:33 Resp 16 02/07/23 10:33 BP 101/69 02/07/23 10:33 Pulse Ox 97 02/07/23 10:33 Laboratory Results - last 24 hr 02/05/23 02/06/23 02/07/23 15:27 18:20 06:41 WBC RBC Hgb Hct MCV MCH MCHC RDW Plt Count MPV Immature Gran % Neutrophils % Lymphocytes % Monocytes % Eosinophils % Basophils % Nucleated RBC % Absolute Neutrophils Absolute Lymphocytes Absolute Monocytes Absolute Eosinophils Absolute Basophils RBC Morphology Polychromasia Anisocytosis Sodium 142 Potassium 3.2 L 3.3 L Chloride 109 H Carbon Dioxide 20.5 L Anion Gap 12.5 H BUN 2 L Creatinine 0.6 Est GFR (CKD-EPI 2020) 100.80 Glucose 93 Calcium 8.3 L Stool Campylobacter PCR Negative Stool Salmonella PCR Negative Stool Shigella PCR Negative Shiga Toxin (PCR) Negative 02/07/23 06:41 WBC 3.27 L RBC 4.06 Hgb 11.8 Hct 35.4 L MCV 87 MCH 29.1 MCHC 33.3 RDW 20.3 H Plt Count 235 MPV 12.4 H Immature Gran % 1.2 Neutrophils % 49.4 Lymphocytes % 33.6 Monocytes % 12.2 Eosinophils % 2.1 Basophils % 1.5 Nucleated RBC % 0.0 Absolute Neutrophils 1.62 Absolute Lymphocytes 1.10 L Absolute Monocytes 0.40 Absolute Eosinophils 0.07 Absolute Basophils 0.05 RBC Morphology See Below Polychromasia Present Anisocytosis 2+ Sodium Potassium Chloride Carbon Dioxide Anion Gap BUN Creatinine Est GFR (CKD-EPI 2020) Glucose Calcium Stool Campylobacter PCR Stool Salmonella PCR Stool Shigella PCR Shiga Toxin (PCR) Time Spent with Patient Time Spent with Patient: 25-34 minutes Time was spent: preparing to see the patient(eg.review tests), obtaining and/or reviewing separately otained hiistory, ordering medications,tests, procedures, referring, communicating with other health physician locums urgent care, indepentently interpreting results and counseling the patient
[2023-02-07 14:58] LABS: Potassium 4.4 mmol/L (3.5-5.1)
--- NOTE | 2023-02-07 15:20 | CHAPLAIN ---
Shea said she is feeling a bit better today, but still tired, when I visited this afternoon. She was looking forward to getting washed up. I brought a prayer shawl and said I would visit tomorrow.
[2023-02-07] MEDS: Lidocaine 5% Patch 2 PATCH TP (17:23)
[2023-02-07] MEDS: Apixaban 5 MG TAB PO (20:48)
[2023-02-08] VITALS (11 sets, daily range): BP systolic 100–113; BP diastolic 67–78; PULSE 60–108; RESP 16–22; TEMP 36.1–37; O2SAT 92–99
[2023-02-08] MEDS: Loperamide 2 MG CAP PO ×2 (03:04→18:26)
[2023-02-08] MEDS: Vancomycin 125 MG CAP PO ×4 (05:53→23:27)
[2023-02-08] MEDS: Levothyroxine 125 MCG TAB PO (05:53)
[2023-02-08] MEDS: Lidocaine Patch Removal 2 EACH TP (05:54)
[2023-02-08] MEDS: Acetaminophen 325 MG TAB PO ×2 (05:54→20:05)
[2023-02-08 06:49] LABS: Abs Immature Grans 0.03 10^3/uL (0.0-0.06); Absolute Basophil Count 0.03 10^3/uL (0.0-0.2); Absolute Eosinophil Count 0.06 10^3/uL (0.0-0.7); Absolute Lymphocyte Count 0.84 10^3/uL (1.2-3.4); Absolute Monocyte Count 0.39 10^3/uL (0.1-0.8); Absolute Neutrophil Count 1.45 10^3/uL (1.2-6.7); Basophils % 1.1; Eosinophils % 2.1; HCT 35.4 % (36.0-46.0); HGB 11.4 g/dL (11.2-15.7); Immature Grans % 1.1; MCH 28.4 pg (27.0-33.0); MCHC 32.2 % (32.0-36.0); MCV 88 fL (80-95); MPV 11.6 fL (8.0-11.0); Monocytes % 13.9; Neutrophils % 51.8; Platelet Count 231 10^3/uL (130-400); RBC 4.02 10^6/uL (3.93-5.22); RDW 20.6 % (11.7-14.6); RDW-SD 64.7 fL
[2023-02-08 07:03] LABS: BUN 1 mg/dL (7-18); CREATININE 0.6 mg/dL (0.55-1.02); Calcium 8.4 mg/dL (8.5-10.1); Chloride 109 mmol/L (98-107); Glucose 81 mg/dL (74-106); Potassium 4.3 mmol/L (3.5-5.1); Sodium 140 mmol/L (136-145)
[2023-02-08 07:06] LABS: Magnesium 1.6 mg/dL (1.8-2.4)
[2023-02-08] MEDS: Metoprolol 12.5 MG TAB PO ×2 (07:35→20:07)
[2023-02-08] MEDS: Psyllium PKT 1 EACH PO (07:35)
[2023-02-08] MEDS: Apixaban 5 MG TAB PO ×2 (07:35→20:06)
[2023-02-08] MEDS: Omeprazole 20 MG CAPCR PO (07:35)
[2023-02-08] MEDS: Potassium Chloride 10 MEQ CAPCR 20 MEQ PO ×2 (07:35→20:07)
[2023-02-08] MEDS: Magnesium Oxide 400 MG TAB PO (07:35)
[2023-02-08] MEDS: Ondansetron 4 MG/2 ML VIAL IVP ×4 (07:36→21:57)
[2023-02-08] MEDS: POTASSIUM CHLORIDE/0.9% NACL 1,000 ML 100 MEQ IV ×2 (08:06→17:16)
--- NOTE | 2023-02-08 08:23 | CMPROGNOTE_ITS ---
Date of service: 02/08/23 Time of Service: : Care Management Progress Note Progress Note Text Progress Note Text: S/O: Shea was sitting up in bed attempting to eat lunch when CM met with her. She stated that her appetite has been depleted since having chemo, and she is only able to take very small amounts of food, due to how nauseas she has been. She reported that the heart monitor was removed, and her rate is now controlled by medication. Per report, she is clinically improving, and may be ready for discharge in the next 24-48 hours. She is agreeable to this plan, although expresses some nervousness surrounding being home alone post hospitalization. She reported that her sister is very supportive, but she does not like to bother her often. CM will continue to follow. A: Shea is a 63 year old female admitted to [facility] on 02/05/23 for dehydration, enterocolitis. P: Anticipate Shea will return home when medically cleared. Her sister will drive her home via private vehicle. She will follow up with her PCP and discharge plan of care. CM will continue to follow.
[2023-02-08] MEDS: MAGNESIUM SULFATE 2 GM/50 ML BAG IVPB (09:23)
--- NOTE | 2023-02-08 10:39 | W.PM.PROGNOT ---
Date of Service Date of service: 02/08/23 Time of Service: 10:39 Assessment and Plan Assessment and plan (1) C. difficile colitis: Status: Acute Assessment and plan: continues to have some loose stools, but improving. Stools have been guaiac negative x3. Continue the vancomycin p.o. Continue Imodium. IV fluids normal saline with 20 potassium at 100 cc an hour. (2) Hypokalemia: Status: Acute Assessment and plan: normalized potassium. Also added IV magnesium supplementation for magnesium of 1.6, continue PO but change to mag chloride. IV fluids with potassium. Recheck levels in the a.m. (3) Hypomagnesemia: Status: Acute Assessment and plan: see above replete and follow (4) Back pain: Status: Acute Assessment and plan: Back pain is stable. Continue present meds (5) Atrial fibrillation: Status: Chronic Assessment and plan: She continues in atrial fibrillation on telemetry. Her echocardiogram showed A-fib LV function was normal LVEF 55 to 60%. No segmental wall abnormalities. Will start on Eliquis 5 mg twice daily and discontinue Lovenox. Blood pressures been a little soft cut back the metoprolol to 12.5 mg p.o. twice daily. can discontinue telemetry. (6) Breast cancer: Status: Chronic Assessment and plan: In active treatment for her breast cancer currently on chemotherapy with plans to receive monoclonal antibody treatments. Consulted with Dr. Jacobs regarding ongoing treatment. He agrees with the current medical plan. (7) Discharge planning issues: Status: Acute Assessment and plan: Discharge to home when medically stable discussed with DR Katz Subjective Subjective Patient reports: feels better, tolerating liquids well, nausea and afebrile; denies tolerating a regular diet or vomiting Exam Const General: no acute distress and ill appearing chronically Nutritional Appearance: overweight Orientation: alert, awake and oriented x3 [facility] Head: normocephalic and other (alopecia) Face and sinus: normal facial exam Mouth: moist mucous membranes abnormal Eyes General: appearance normal, both eyes and all related structures Sclera: sclerae normal Chest Chest: normal inspection of the chest and other (mediport access, dressing intact, infusing well) Resp Effort & Inspection: normal respiratory effort Cardio Rate: regular rate Rhythm: regular rhythm GI Inspection: normal to inspection Skin Rashes: no rashes Neuro General: patient alert, patient awake and patient oriented x3 Extrem General: normal to inspection and full ROM Objective Last Vital Signs Temp 36.2 C L 02/08/23 07:40 Pulse 77 02/08/23 07:40 Resp 17 02/08/23 07:40 BP 110/78 02/08/23 07:40 Pulse Ox 99 02/08/23 07:40 Laboratory Results - last 24 hr 02/07/23 02/08/23 02/08/23 14:40 06:00 06:00 WBC 2.80 L RBC 4.02 Hgb 11.4 Hct 35.4 L MCV 88 MCH 28.4 MCHC 32.2 RDW 20.6 H Plt Count 231 MPV 11.6 H Immature Gran % 1.1 Neutrophils % 51.8 Lymphocytes % 30.0 Monocytes % 13.9 Eosinophils % 2.1 Basophils % 1.1 Nucleated RBC % 0.0 Absolute Neutrophils 1.45 Absolute Lymphocytes 0.84 L Absolute Monocytes 0.39 Absolute Eosinophils 0.06 Absolute Basophils 0.03 Sodium 140 Potassium 4.4 D 4.3 Chloride 109 H Carbon Dioxide 21.0 Anion Gap 10.0 BUN 1 L Creatinine 0.6 Est GFR (CKD-EPI 2020) 100.80 Glucose 81 Calcium 8.4 L Magnesium 02/08/23 06:00 WBC RBC Hgb Hct MCV MCH MCHC RDW Plt Count MPV Immature Gran % Neutrophils % Lymphocytes % Monocytes % Eosinophils % Basophils % Nucleated RBC % Absolute Neutrophils Absolute Lymphocytes Absolute Monocytes Absolute Eosinophils Absolute Basophils Sodium Potassium Chloride Carbon Dioxide Anion Gap BUN Creatinine Est GFR (CKD-EPI 2020) Glucose Calcium Magnesium 1.6 L Time Spent with Patient Time Spent with Patient: 35-49 minutes Time was spent: preparing to see the patient(eg.review tests), obtaining and/or reviewing separately otained hiistory, ordering medications,tests, procedures, referring, communicating with other health senior care specialist, indepentently interpreting results and counseling the patient
--- NOTE | 2023-02-08 16:57 | CHAPLAIN ---
Shea was sitting up in the chair when I visited. Her sister Tootie was with her. Shea said she ate a little bit today and believes some of her tastebuds are coming back. She was due to have her 11th of 12 chemo treatments when she ended up in the ED earlier this week. Shea said the hospitalist said she may go home over the weekend. She is looking forward to being back with her cat, Heather, but also doesn't want to go home too soon as she lives alone. She talked a bit about what it's been like to have the chemo treatments following her surgery in October. Her sister has been [place] [facility] and is supportive. Shea said she's also met some other women at her chemo treatments who are going through a similar treatment. She talked about how people tell her she is strong, but she sees it as not having an option and doing what she needs to do to survive her cancer.
[2023-02-08] MEDS: Lidocaine 5% Patch 2 PATCH TP (17:06)
[2023-02-08] MEDS: Magnesium Chloride 64 MG TABCR PO (20:06)
[2023-02-08] MEDS: HYDROmorphone 2 MG/ML SYR 1 MG IVP (21:57)
[2023-02-09 04:12] VITALS: BP 122/66; PULSE 62; RESP 16; TEMP 36.8; O2SAT 98
[2023-02-09] MEDS: Levothyroxine 125 MCG TAB PO (05:38)
[2023-02-09] MEDS: Lidocaine Patch Removal 2 EACH TP (05:39)
[2023-02-09] MEDS: POTASSIUM CHLORIDE/0.9% NACL 1,000 ML 100 MEQ IV (05:40)
[2023-02-09] MEDS: Vancomycin 125 MG CAP PO ×4 (05:42→23:55)
[2023-02-09 06:17] LABS: Abs Immature Grans 0.02 10^3/uL (0.0-0.06); Absolute Basophil Count 0.03 10^3/uL (0.0-0.2); Absolute Eosinophil Count 0.07 10^3/uL (0.0-0.7); Absolute Lymphocyte Count 0.88 10^3/uL (1.2-3.4); Absolute Monocyte Count 0.37 10^3/uL (0.1-0.8); Absolute Neutrophil Count 1.45 10^3/uL (1.2-6.7); Basophils % 1.1; Eosinophils % 2.5; HCT 31.7 % (36.0-46.0); HGB 10.2 g/dL (11.2-15.7); Immature Grans % 0.7; Lymphocytes % 31.2; MCH 28.5 pg (27.0-33.0); MCHC 32.2 % (32.0-36.0); MCV 89 fL (80-95); Monocytes % 13.1; Neutrophils % 51.4; Platelet Count 207 10^3/uL (130-400); RBC 3.58 10^6/uL (3.93-5.22); RDW-SD 66.7 fL; WBC 2.82 10^3/uL (4.4-10.8)
[2023-02-09 06:35] LABS: Anion Gap 10.5 mmol/L (3-11); BUN 2 mg/dL (7-18); CO2 19.5 mmol/L (21.0-32.0); CREATININE 0.6 mg/dL (0.55-1.02); Chloride 108 mmol/L (98-107); Glucose 80 mg/dL (74-106); Magnesium 1.9 mg/dL (1.8-2.4); Potassium 4.7 mmol/L (3.5-5.1); Sodium 138 mmol/L (136-145)
[2023-02-09 06:54] LABS: Anisocytosis 2+; Diff Comment RBC Morph Reviewed
[2023-02-09 07:11] VITALS: BP 102/67; PULSE 65; RESP 17; TEMP 36.7; O2SAT 99
[2023-02-09] MEDS: Potassium Chloride 10 MEQ CAPCR 20 MEQ PO (08:13)
[2023-02-09] MEDS: Omeprazole 20 MG CAPCR PO (08:13)
[2023-02-09] MEDS: Apixaban 5 MG TAB PO ×2 (08:13→20:18)
[2023-02-09] MEDS: Metoprolol 12.5 MG TAB PO ×2 (08:13→20:19)
[2023-02-09] MEDS: Ondansetron 4 MG/2 ML VIAL IVP ×2 (08:14→15:29)
[2023-02-09] MEDS: Magnesium Chloride 64 MG TABCR PO ×2 (08:14→20:19)
[2023-02-09] MEDS: Psyllium PKT 1 EACH PO ×2 (08:14→20:18)
[2023-02-09 11:14] VITALS: BP 111/69; PULSE 60; RESP 18; TEMP 36.8; O2SAT 99
[2023-02-09] MEDS: Loperamide 2 MG CAP PO (11:16)
--- NOTE | 2023-02-09 13:41 | PGE_ITS ---
Date of Service Date of service: 02/09/23 Time of Service: 13:41 Assessment and Plan Assessment and plan (1) C. difficile colitis: Status: Acute Assessment and plan: continues to have some loose stools, but improving. Stools have been guaiac negative x3. Continue the vancomycin p.o. Continue Imodium. stop IV fluids (2) Hypokalemia: Status: Resolved Assessment and plan: normalized potassium. magnesium 1.9, continue mag chloride. IV fluids with potassium discontinued. Recheck levels in the a.m. (3) Hypomagnesemia: Status: Resolved Assessment and plan: see above continue oral supplementation (4) Back pain: Status: Acute Assessment and plan: Back pain is stable. Continue present meds (5) Atrial fibrillation: Status: Chronic Assessment and plan: telemetry discontinued. heart rate has been stable. Her echocardiogram showed A-fib LV function was normal LVEF 55 to 60%. No segmental wall abnormalities. Will start on Eliquis 5 mg twice daily and discontinue Lovenox. Blood pressures been a little soft cut back the metoprolol to 12.5 mg p.o. twice daily. (6) Breast cancer: Status: Chronic Assessment and plan: In active treatment for her breast cancer currently on chemotherapy with plans to receive monoclonal antibody treatments. Consulted with Dr. Jacobs regarding ongoing treatment. He agrees with the current medical plan. (7) Discharge planning issues: Status: Acute Assessment and plan: Discharge to home when medically stable discussed with DR Maravilla Subjective Subjective Patient reports: voiding w/o difficulty, diarrhea and afebrile; denies shortness of breath Exam Const General: no acute distress and ill appearing chronically Nutritional Appearance: overweight Orientation: alert, awake and oriented x3 [facility] Head: normocephalic and other (alopecia) Face and sinus: normal facial exam Mouth: moist mucous membranes abnormal Eyes General: appearance normal, both eyes and all related structures Sclera: sclerae normal Chest Chest: normal inspection of the chest and other (mediport access, dressing intact, infusing well) Resp Effort & Inspection: normal respiratory effort Cardio Rate: regular rate Rhythm: regular rhythm GI Inspection: normal to inspection Skin Rashes: no rashes Neuro General: patient alert, patient awake and patient oriented x3 Extrem General: normal to inspection and full ROM Objective Last Vital Signs Temp 36.8 C 02/09/23 11:14 Pulse 60 02/09/23 11:14 Resp 18 02/09/23 11:14 BP 111/69 02/09/23 11:14 Pulse Ox 99 02/09/23 11:14 Laboratory Results - last 24 hr 02/09/23 02/09/23 05:45 05:45 WBC 2.82 L RBC 3.58 L Hgb 10.2 L Hct 31.7 L MCV 89 MCH 28.5 MCHC 32.2 RDW 21.0 H Plt Count 207 MPV 11.0 Immature Gran % 0.7 Neutrophils % 51.4 Lymphocytes % 31.2 Monocytes % 13.1 Eosinophils % 2.5 Basophils % 1.1 Nucleated RBC % 0.0 Absolute Neutrophils 1.45 Absolute Lymphocytes 0.88 L Absolute Monocytes 0.37 Absolute Eosinophils 0.07 Absolute Basophils 0.03 RBC Morphology See Below Anisocytosis 2+ Sodium 138 Potassium 4.7 Chloride 108 H Carbon Dioxide 19.5 L Anion Gap 10.5 BUN 2 L Creatinine 0.6 Est GFR (CKD-EPI 2020) 100.80 Glucose 80 Calcium 8.0 L Magnesium 1.9 Time Spent with Patient Time Spent with Patient: 25-34 minutes Time was spent: preparing to see the patient(eg.review tests), obtaining and/or reviewing separately otained hiistory, ordering medications,tests, procedures, indepentently interpreting results and counseling the patient
[2023-02-09] MEDS: Cholestyramine/Aspartame PKT 1 EACH PO (15:29)
[2023-02-09] MEDS: Lidocaine 5% Patch 2 PATCH TP (17:26)
[2023-02-09 19:32] VITALS: BP 115/79; PULSE 72; RESP 18; TEMP 36.9; O2SAT 99
[2023-02-09 23:52] VITALS: BP 109/71; PULSE 68; RESP 16; TEMP 37.1; O2SAT 99
[2023-02-10 04:00] VITALS: BP 116/71; PULSE 70; RESP 18; TEMP 36.2; O2SAT 99
[2023-02-10] MEDS: Ondansetron 4 MG/2 ML VIAL IVP (05:58)
[2023-02-10] MEDS: Levothyroxine 125 MCG TAB PO (05:58)
[2023-02-10] MEDS: Vancomycin 125 MG CAP PO ×2 (05:59→12:17)
[2023-02-10] MEDS: Lidocaine Patch Removal 2 EACH TP (05:59)
[2023-02-10 08:01] VITALS: BP 117/83; PULSE 74; RESP 18; TEMP 36.6; O2SAT 98
[2023-02-10] MEDS: Normal Saline Flush 10 ML SYR IVP (08:11)
[2023-02-10] MEDS: Psyllium PKT 1 EACH PO (08:12)
[2023-02-10] MEDS: Potassium Chloride 10 MEQ CAPCR 20 MEQ PO (08:13)
[2023-02-10] MEDS: Omeprazole 20 MG CAPCR PO (08:14)
[2023-02-10] MEDS: Loperamide 2 MG CAP PO (08:14)
[2023-02-10] MEDS: Apixaban 5 MG TAB PO (08:14)
[2023-02-10] MEDS: Metoprolol 12.5 MG TAB PO (08:14)
[2023-02-10] MEDS: Magnesium Chloride 64 MG TABCR PO (08:14)
[2023-02-10 11:13] VITALS: BP 110/76; PULSE 66; RESP 18; TEMP 37.2; O2SAT 97
--- NOTE | 2023-02-10 11:42 | W.PM.DS.N ---
Date of service: 02/10/23 Time of Service: 11:42 DS: Diagnosis Discharge Diagnosis (1) C. difficile colitis: Status: Acute (2) Hypokalemia: Status: Resolved (3) Hypomagnesemia: Status: Resolved (4) Back pain: Status: Acute (5) Atrial fibrillation: Status: Chronic (6) Breast cancer: Status: Chronic Discharge Plan Disposition Patient Disposition: Home W/Home Health Services Condition: Stable Discharge Details Reason For Visit: Dehydration, Enterocollitis Admit Date/Time: 02/07/23 09:18 Admit Provider: Anthony Katz Attending Provider: Anthony Katz Primary Care Provider: Donna Shay Hospital Course Hospital Course: This is 63-year-old female with past medical history of thyroid and breast cancer who presented to the [facility] ED for evaluation of persistent diarrhea, nausea, difficulty eating secondary to nausea and vomiting, lightheadedness, and back pain over the course of the past several weeks.? Work up in the ED showed acute dehydration on her labs and hypokalemia.? She was also found to be in atrial fibrillation with RVR and given IV fluids and lopressor. She was started on oral beta efrem and eliquis. her heart rate has remained controlled. work up also revealed c diff colitis and she was started on oral vancomycin. Her symptoms were slow to improve, most likely d/t her underlying cancer and chemo treatment. She is stable for discharge to home and would benefit from home health services in her frail/vulnerable state. referral has been placed. she is being discharged to home with nursing, pt/ot, medical care manager with request for meals on wheels and [facility]. discussed with DR Maravilla Home Meds and New Rx's Prescriptions: New Eliquis 5 mg Tablet 5 mg PO BID Qty: 60 0RF cholestyramine-aspartame [Prevalite] 4 gram Powder In Packet 1 packet PO 1000,1900 Qty: 60 0RF metoprolol tartrate 25 mg Tablet 12.5 mg PO BID Qty: 30 0RF L. Acidophilus,Casei,Rhamnosus [Bio-K Plus] 1 cap PO DAILY Qty: 30 0RF vancomycin 125 mg Capsule 125 mg PO Q6H Qty: 17 0RF Continued lorazepam 1 MG tablet 1 mg PO PRN PRN (Reason: Anxiety) omeprazole 20 mg capsule,delayed release(DR/EC) 20 mg PO DAILY acetaminophen [Mapap Extra Strength] 500 MG tablet 500 mg PO Q8H PRN ondansetron 8 mg tablet,disintegrating 8 mg PO Q8H PRN Patient Comments: DISSOLVE ONE TABLET ON THE TONGUE EVERY 8 HOURS NEEDED FOR NAUSEA diphenoxylate-atropine 2.5-0.025 mg tablet 1 tab PO QID PRN Patient Comments: TAKE ONE TABLET BY MOUTH FOUR TIMES A DAY NEEDED FOR DIARRHEA prochlorperazine maleate 10 mg tablet 10 mg PO Q6H PRN Patient Comments: TAKE ONE TABLET BY MOUTH EVERY 6 HOURS NEEDED FOR NAUSEA levothyroxine 125 mcg tablet 125 mcg PO DAILY Patient Comments: Take 1 tablet by mouth once a day Discharge Instructions Instructions: A-fib (Atrial Fibrillation) (DC), C. Diff (Clostridioides Difficile) Infection (DC) Additional Instructions: push fluids to stay well hydrated. eat frequent small meals to ensure adequate nutrition. Stand Alone Forms: Nursing Discharge Form Referrals: Donna Shay [Primary Care Provider] - (follow up with PCP in 1-2 weeks) Activity:: Activity as Tolerated Equipment/Supplies:: No Equipment Needed Diet:: As Tolerated Discharge Orders Discharge Orders: Discharge Order (Routine); Ordered 02/10/23 Ordered By: Elif Dao DS: Summary Time Spent with Patient providing and/or coordinating discharge services: Greater than 30 minutes Status at Discharge Functional status at discharge: independent ambulation Overall status at discharge: patient is progressing back to baseline Mental Status: mental status grossly normal Speech and Movement: speech and movement normal Mood: congruent mood Affect: normal affect Exam Const General: no acute distress and ill appearing chronically Nutritional Appearance: overweight Orientation: alert, awake and oriented x3 HENWA Head: normocephalic and other (alopecia) Face and sinus: normal facial exam Mouth: moist mucous membranes abnormal Eyes General: appearance normal, both eyes and all related structures Sclera: sclerae normal Chest Chest: normal inspection of the chest and other (mediport access, dressing intact, infusing well) Resp Effort & Inspection: normal respiratory effort Cardio Rate: regular rate Rhythm: regular rhythm GI Inspection: normal to inspection Skin Rashes: no rashes Neuro General: patient alert, patient awake and patient oriented x3 Extrem General: normal to inspection and full ROM Psych Mental Status: mental status grossly normal Speech and Movement: speech and movement normal Mood: congruent mood Affect: normal affect DS: Data Vitals/I&O Vitals and I&O: Vital Signs Temperature 37.2 C 02/10/23 11:13 Temperature Source Tympanic 02/10/23 11:13 Pulse 66 02/10/23 11:13 Pulse Rhythm Regular 02/10/23 08:00 Pulse 81 02/05/23 11:45 Respiratory Rate 18 02/10/23 11:13 Respiratory Effort Normal, Non-Labored 02/10/23 08:00 Respiratory Depth Normal 02/10/23 08:00 Respiratory Pattern Normal 02/10/23 08:00 Blood Pressure 110/76 02/10/23 11:13 Blood Pressure Mean 87 02/05/23 16:13 Blood Pressure Position Supine 02/05/23 10:56 Pulse Oximetry 97 02/10/23 11:13 Oxygen Delivery Method Room Air 02/10/23 11:13 Oxygen Flow Rate 0 02/10/23 11:13 Pain Level 4 02/10/23 11:13 Comment RN asked not to wake pt up 02/09/23 03:13 Intake & Output 02/09/23 02/09/23 02/10/23 11:59 23:59 11:59 Intake Total 1000 / 2000 1000 / 2000 240 / 240 Output Total 250 / 250 Balance 750 / 1750 1000 / 1750 240 / 240 Weight 84.5 kg 83.007 kg Intake: IV 1000 / 2000 1000 / 2000 Oral 240 / 240 Output: Urine 250 / 250 Other: Urine Color Yellow Yellow Yellow Urine Appearance Clear Clear Clear Comment pT has been voiding in the toilet independently all day Stool Size Small Small Stool Characteristics Liquid Mucoid Brown Green Voiding Methods Toilet Toilet Data Completed and Pending Labs on day of discharge: Labs from last 24 hours 02/10/23 02/10/23 10:46 10:46 WBC Pending RBC Pending Hgb Pending Hct Pending MCV Pending MCH Pending MCHC Pending RDW Pending Plt Count Pending MPV Pending Immature Gran % Pending Neutrophils % Pending Lymphocytes % Pending Monocytes % Pending Eosinophils % Pending Basophils % Pending Absolute Neutrophils Pending Absolute Lymphocytes Pending Absolute Monocytes Pending Absolute Eosinophils Pending Absolute Basophils Pending Sodium Pending Potassium Pending Chloride Pending Carbon Dioxide Pending Anion Gap Pending BUN Pending Creatinine Pending Est GFR (CKD-EPI 2020) Pending Glucose Pending Calcium Pending PFSH All Active Problems (Updated 02/09/23 @ 17:51 by Eilf Dao NP) Colitis (Acute) Diarrhea (Acute) Acute hypokalemia (Acute) Acute dehydration (Acute) Discharge planning issues (Acute) DVT prophylaxis (Acute) Back pain (Acute) Atrial fibrillation (Chronic) C. 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 GERD (gastroesophageal reflux disease) History of thyroid cancer Hyperlipidemia Malaise and fatigue Tavares's disease Pneumonia Prediabetes Rosacea Surgical History (Updated 08/23/22 @ 13:55 by Mabel Ng RN) H/O colonoscopy (~08/10/22) H/O esophagogastroduodenoscopy History of laryngoplasty History of partial hysterectomy Hx of cholecystectomy Hx of thyroidectomy Social History Smoking/Tobacco Use Status: Former Tobacco Use Quit Date: 06/03/83 Smoking risk assessment performed?: Yes Alcohol Intake: current Alcohol Intake frequency: a few times a month Drug use: Rarely Substance use type: marijuana Details: marijuana inh t-2 Housing: apartment Do you feel safe at home: Yes Do you feel safe in your relationship?: Yes Time Spent with Patient Time Spent with Patient: 45-69 minutes Time was spent: preparing to see the patient(eg.review tests), obtaining and/or reviewing separately otained hiistory, ordering medications,tests, procedures, referring, communicating with other health associate director career services, indepentently interpreting results, counseling the patient and care coordination
[2023-02-10 11:48] LABS: Abs Immature Grans 0.02 10^3/uL (0.0-0.06); Absolute Basophil Count 0.01 10^3/uL (0.0-0.2); Absolute Eosinophil Count 0.04 10^3/uL (0.0-0.7); Absolute Lymphocyte Count 0.56 10^3/uL (1.2-3.4); Absolute Monocyte Count 0.48 10^3/uL (0.1-0.8); Absolute Neutrophil Count 2.64 10^3/uL (1.2-6.7); Basophils % 0.3; Eosinophils % 1.1; HCT 31.5 % (36.0-46.0); HGB 10.3 g/dL (11.2-15.7); Immature Grans % 0.5; Lymphocytes % 14.9; MCH 28.6 pg (27.0-33.0); MCHC 32.7 % (32.0-36.0); MCV 88 fL (80-95); MPV 11.2 fL (8.0-11.0); Monocytes % 12.8; Neutrophils % 70.4; Platelet Count 193 10^3/uL (130-400); RDW 20.8 % (11.7-14.6); RDW-SD 65.3 fL; WBC 3.75 10^3/uL (4.4-10.8)
[2023-02-10 11:53] LABS: Anion Gap 5.4 mmol/L (3-11); BUN 1 mg/dL (7-18); CO2 25.6 mmol/L (21.0-32.0); CREATININE 0.5 mg/dL (0.55-1.02); Calcium 8.5 mg/dL (8.5-10.1); Chloride 107 mmol/L (98-107); Estimated GFR 105.32 (mL/min/1.73m2); Glucose 106 mg/dL (74-106); Potassium 4.3 mmol/L (3.5-5.1); Sodium 138 mmol/L (136-145)
[2023-02-10 12:02] LABS: Anisocytosis 2+; Diff Comment RBC Morph Reviewed
--- NOTE | 2023-02-10 12:21 | PDOC.CMDIS ---
Date of service: 02/10/23 Time of Service: 12:21 LACE Index Scoring Tool Questions: Length of Stay (in days): 3 Was the patient admitted via the E.D.?: Yes Comorbidities: Metastatic Solid Tumor (Breast Cancer) E.D. Visits: 1 Answers: Total Score: 12 Risk of Readmission: High Risk Care Management Discharge Plan Reason for Hospitalization: Dehydration, enterocolitis Discharge Plan: Shea is discharge home via private vehicle with sister. She will follow up with community providers and discharge plan of care as instructed. No [facility] services are ordered prior to discharge. Eliqu coverage is verified. Patient/Family Education Needs: Review discharge instructions, limitations, medications and plan to follow up with community providers. Discuss ask me three and goals of self care.
[2023-02-10] MEDS: Cholestyramine/Aspartame PKT 1 EACH PO (12:30)
--- NOTE | 2023-02-10 12:59 | PDOC.HHF2F_ITS ---
Home Health Referral <Elif Dao NP - Last Filed: 02/10/23 13:04> Home Health Orders Clinical synopsis of why skilled professionals are needed: patient with history of cancer, recently admitted for c diff colitis, increased weakness, anorexia, physical decline. now with new diagnosis of afib on multiple new medications. lives home alone and will be unable to drive d/t symptoms (freq loose stooling, weakness/fatigue) risk for medication errors Medical diagnosis necessitation home health referral: c diff colitis, atrial fibrillation, cancer on chemo and immunotherapy Registered Nurse: Check all that apply Instruct on new or changed medication(s)/assess compliance: Ordered Assess for exacerbation of medical condition, instruct patient/caregivers on si gns and symptoms to report for early detection: Ordered Physical Therapist: Check all that apply Increase strength & endurance for safe mobility at home: Ordered To design/establish home maintenance program: Ordered Fall reduction therapy program for patient with history of frequent falls: Ordered Home safety evaluation and teaching/gait training including stair management (if applicable): Ordered Occupational Therapist: Evaluate and treat for patient unable to perform ADL/IADL/self-care: Ordered Upper extremity strengthening, range and motion: Ordered Fibrous Wallboard Inspector: Assist with community resources: Ordered Assist with assisted care planning: Ordered Home Bound Status Describe why leaving home would require a considerable and taxing effort: Side effects from pain medication (sedation/drowsiness), Requires frequent rest periods and Incontinence (frequent diarrhea) Encounter Date and Reason: I certify that a FTF encounter for this patient was performed on February 10, 2023 and that such encounter was related to the primary reason the patient requires home health services. The encounter was conducted in the following manner: * By me as the certifying physician, FORESTRY BIOLOGY SPECIALIST, PA or * By an inpatient physician, FORESTRY BIOLOGY SPECIALIST or PA during an inpatient stay who communicated findings to me, Certification And Authentication I certify that I composed the above information based on my clinical judgment relating to this patient's medical condition and, if applicable, clinical findings communicated to me by the NPP or inpatient physician who performed the FTF encounter. Name of Provider that will be monitoring home health services: Donna Shay <Lupillo Maravilla MD - Last Filed: 02/10/23 14:13> Certification And Authentication Name of Provider that will be monitoring home health services: Tika Rock
[2023-02-10] MEDS: Heparin 500 UNITS/5 ML SYRINGE IVP (14:16)
== END 2023-02-10 14:28 | disposition home health service (06) | DRG 372 ==
LOC: ER 15:13 → MS 16:30
PROVIDERS: Family Medicine; Nurse Practitioner Acute Care; Nurse Practitioner Family; Admitting Provider Internal Medicine; Emergency Provider Physician Assistant; PCP Nurse Practitioner Family; Visit Provider Internal Medicine
DX: A04.72 Enterocolitis due to Clostridium difficile, not specified as recurrent (principal); I48.20 Chronic atrial fibrillation, unspecified; E86.0 Dehydration; E87.6 Hypokalemia; M54.9 Dorsalgia, unspecified; E83.42 Hypomagnesemia; E89.0 Postprocedural hypothyroidism; Z85.850 Personal history of malignant neoplasm of thyroid; Z87.891 Personal history of nicotine dependence; F12.90 Cannabis use, unspecified, uncomplicated; J30.9 Allergic rhinitis, unspecified; R73.03 Prediabetes; E78.5 Hyperlipidemia, unspecified; K21.9 Gastro-esophageal reflux disease without esophagitis; C50.919 Malignant neoplasm of unspecified site of unspecified female breast; Z79.899 Other long term (current) drug therapy
CPT/HCPCS: 36415; 80048; 80053; 83690; 87493; 87505; 93005; 96365; 96366; 96375; 99291; 72131; 74177; 81003; 81015; 83735; 84132; 84484; 85025; 86140; 93010; 93306; 99222; 99232; 99233; 99239; G0378; J1170; J1650; J2270; J2405; J3480; J3490

== ENCOUNTER 2023-02-12 02:21 | Outpatient (RCR) | payer MEDICAID, SELFPAY ==
[2023-02-05 09:26] LABS: Abs Immature Grans 0.05 10^3/uL (0.0-0.06); Absolute Basophil Count 0.04 10^3/uL (0.0-0.2); Absolute Eosinophil Count 0.02 10^3/uL (0.0-0.7); Absolute Lymphocyte Count 0.69 10^3/uL (1.2-3.4); Absolute Monocyte Count 0.43 10^3/uL (0.1-0.8); Absolute Neutrophil Count 3.48 10^3/uL (1.2-6.7); Basophils % 0.8; Eosinophils % 0.4; HCT 42.4 % (36.0-46.0); HGB 14.6 g/dL (11.2-15.7); Immature Grans % 1.1; Lymphocytes % 14.6; MCH 29.1 pg (27.0-33.0); MCHC 34.4 % (32.0-36.0); MCV 85 fL (80-95); MPV 11.8 fL (8.0-11.0); Monocytes % 9.1; Platelet Count 365 10^3/uL (130-400); RBC 5.01 10^6/uL (3.93-5.22); RDW 19.7 % (11.7-14.6); RDW-SD 58.2 fL; WBC 4.71 10^3/uL (4.4-10.8)
[2023-02-05 09:45] LABS: ALT 27 U/L (14-59); AST 15 U/L (15-37); Albumin 3.9 g/dL (3.4-5.0); Alkaline Phosphatase 120 U/L (46-116); Anion Gap 18.9 mmol/L (3-11); BUN 8 mg/dL (7-18); Bilirubin, Total 0.7 mg/dL (0.2-1.0); CO2 20.1 mmol/L (21.0-32.0); CREATININE 1.1 mg/dL (0.55-1.02); Calcium 9.6 mg/dL (8.5-10.1); Chloride 98 mmol/L (98-107); Estimated GFR 56.46 (mL/min/1.73m2); Glucose 177 mg/dL (74-106); Magnesium 1.9 mg/dL (1.8-2.4); Sodium 137 mmol/L (136-145); Total Protein 7.7 g/dL (6.4-8.2)
[2023-02-05 09:49] LABS: Potassium 2.6 mmol/L (3.5-5.1)
[2023-02-05] MEDS: Normal Saline Flush 10 ML SYR IVP (10:43)
== END 2023-03-02 23:59 | disposition home or self-care (01) ==
LOC: INF 02:21
PROVIDERS: PCP Nurse Practitioner Family; Visit Provider Internal Medicine
DX: C50.911 Malignant neoplasm of unspecified site of right female breast (principal); Z17.0 Estrogen receptor positive status [ER+]
CPT/HCPCS: 36591; 80053; 83735; 85025

== ENCOUNTER 2023-03-14 00:56 | Outpatient (RCR) | payer MEDICAID, SELFPAY ==
[2023-03-07 10:21] LABS: Abs Immature Grans 0.08 10^3/uL (0.0-0.06); Absolute Basophil Count 0.01 10^3/uL (0.0-0.2); Absolute Eosinophil Count 0.01 10^3/uL (0.0-0.7); Absolute Lymphocyte Count 0.64 10^3/uL (1.2-3.4); Absolute Monocyte Count 0.52 10^3/uL (0.1-0.8); Basophils % 0.1; Eosinophils % 0.1; HCT 37.9 % (36.0-46.0); HGB 12.5 g/dL (11.2-15.7); Immature Grans % 0.7; Lymphocytes % 5.6; MCH 28.2 pg (27.0-33.0); MCV 86 fL (80-95); MPV 11.3 fL (8.0-11.0); Monocytes % 4.5; Platelet Count 206 10^3/uL (130-400); RBC 4.43 10^6/uL (3.93-5.22); RDW 18.1 % (11.7-14.6); RDW-SD 56.9 fL; WBC 11.51 10^3/uL (4.4-10.8)
[2023-03-07 10:24] LABS: Absolute Neutrophil Count 10.24 10^3/uL (1.2-6.7)
[2023-03-07 10:45] LABS: ALT 292 U/L (14-59); AST 50 U/L (15-37); Albumin 3.5 g/dL (3.4-5.0); Alkaline Phosphatase 123 U/L (46-116); Anion Gap 10.8 mmol/L (3-11); BUN 24 mg/dL (7-18); Bilirubin, Total 0.6 mg/dL (0.2-1.0); CO2 22.2 mmol/L (21.0-32.0); CREATININE 0.7 mg/dL (0.55-1.02); Calcium 9.2 mg/dL (8.5-10.1); Chloride 101 mmol/L (98-107); Estimated GFR 97.12 (mL/min/1.73m2); FREE T4 1.43 ng/dL (0.76-1.46); Glucose 117 mg/dL (74-106); Potassium 3.8 mmol/L (3.5-5.1); Sodium 134 mmol/L (136-145); TSH 0.56 uIU/mL (0.36-3.74); Total Protein 7.1 g/dL (6.4-8.2)
[2023-03-07] MEDS: Heparin 500 UNITS/5 ML SYRINGE (10:46)
[2023-03-14] MEDS: Heparin 500 UNITS/5 ML SYRINGE IV (10:19)
[2023-03-14] MEDS: Normal Saline Flush 10 ML SYR IVP (10:19)
[2023-03-14 10:52] LABS: Abs Immature Grans 0.04 10^3/uL (0.0-0.06); Absolute Basophil Count 0.01 10^3/uL (0.0-0.2); Absolute Eosinophil Count 0.02 10^3/uL (0.0-0.7); Absolute Lymphocyte Count 0.66 10^3/uL (1.2-3.4); Absolute Monocyte Count 0.43 10^3/uL (0.1-0.8); Absolute Neutrophil Count 7.53 10^3/uL (1.2-6.7); Basophils % 0.1; Eosinophils % 0.2; HCT 38.6 % (36.0-46.0); HGB 12.5 g/dL (11.2-15.7); Immature Grans % 0.5; Lymphocytes % 7.6; MCH 28.6 pg (27.0-33.0); MCHC 32.4 % (32.0-36.0); MCV 88 fL (80-95); MPV 11.3 fL (8.0-11.0); Monocytes % 4.9; Neutrophils % 86.7; Platelet Count 156 10^3/uL (130-400); RBC 4.37 10^6/uL (3.93-5.22); RDW 17.8 % (11.7-14.6); RDW-SD 57.9 fL; WBC 8.69 10^3/uL (4.4-10.8)
[2023-03-14 11:07] LABS: ALT 100 U/L (14-59); AST 17 U/L (15-37); Albumin 3.1 g/dL (3.4-5.0); Alkaline Phosphatase 101 U/L (46-116); Anion Gap 10.2 mmol/L (3-11); BUN 17 mg/dL (7-18); Bilirubin, Total 0.4 mg/dL (0.2-1.0); CO2 23.8 mmol/L (21.0-32.0); CREATININE 0.7 mg/dL (0.55-1.02); Calcium 8.7 mg/dL (8.5-10.1); Chloride 103 mmol/L (98-107); Estimated GFR 97.12 (mL/min/1.73m2); Glucose 156 mg/dL (74-106); Potassium 3.4 mmol/L (3.5-5.1); Sodium 137 mmol/L (136-145); Total Protein 6.5 g/dL (6.4-8.2)
== END 2023-04-02 23:59 | disposition home or self-care (01) ==
LOC: INF 00:56
PROVIDERS: Internal Medicine; PCP Nurse Practitioner Family; Visit Provider Nurse Practitioner Family
DX: C50.911 Malignant neoplasm of unspecified site of right female breast (principal); Z17.0 Estrogen receptor positive status [ER+]; E89.0 Postprocedural hypothyroidism; Z45.2 Encounter for adjustment and management of vascular access device
CPT/HCPCS: 36591; 80053; 84439; 84443; 85025

== ENCOUNTER 2023-03-20 14:57 | Outpatient (REF) | payer MEDICAID, SELFPAY ==
[2023-03-20 19:31] LABS: ALT 75 U/L (14-59); AST 26 U/L (15-37); Albumin 3.1 g/dL (3.4-5.0); Alkaline Phosphatase 87 U/L (46-116); Anion Gap 8.9 mmol/L (3-11); BUN 16 mg/dL (7-18); Bilirubin, Total 0.4 mg/dL (0.2-1.0); CO2 24.1 mmol/L (21.0-32.0); CREATININE 0.8 mg/dL (0.55-1.02); Calcium 9.1 mg/dL (8.5-10.1); Chloride 104 mmol/L (98-107); Estimated GFR 82.74 (mL/min/1.73m2); Glucose 124 mg/dL (74-106); Potassium 4.6 mmol/L (3.5-5.1); Sodium 137 mmol/L (136-145); Total Protein 6.6 g/dL (6.4-8.2)
== END 2023-03-20 14:58 | disposition home or self-care (01) ==
LOC: NCHCN 14:57
PROVIDERS: PCP Nurse Practitioner Family; Visit Provider Nurse Practitioner Family
DX: E87.6 Hypokalemia (principal); R74.8 Abnormal levels of other serum enzymes
CPT/HCPCS: 80053

== ENCOUNTER 2023-04-30 09:00 | Outpatient (RCR) | payer MEDICAID, SELFPAY ==
[2023-04-23 13:32] LABS: Absolute Basophil Count 0.01 10^3/uL (0.0-0.2); Absolute Eosinophil Count 0.03 10^3/uL (0.0-0.7); Absolute Lymphocyte Count 0.23 10^3/uL (1.2-3.4); Absolute Monocyte Count 0.39 10^3/uL (0.1-0.8); Absolute Neutrophil Count 6.72 10^3/uL (1.2-6.7); Basophils % 0.1; Eosinophils % 0.4; HCT 39.9 % (36.0-46.0); HGB 13.4 g/dL (11.2-15.7); Immature Grans % 1.3; Lymphocytes % 3.1; MCH 29.5 pg (27.0-33.0); MCHC 33.6 % (32.0-36.0); MCV 88 fL (80-95); MPV 10.9 fL (8.0-11.0); Monocytes % 5.2; Neutrophils % 89.9; Platelet Count 129 10^3/uL (130-400); RBC 4.54 10^6/uL (3.93-5.22); RDW 15.9 % (11.7-14.6); RDW-SD 51.2 fL; WBC 7.48 10^3/uL (4.4-10.8)
[2023-04-23] MEDS: Heparin 500 UNITS/5 ML SYRINGE (13:51)
[2023-04-23] MEDS: Normal Saline Flush 10 ML SYR IVP (14:18)
[2023-04-30] MEDS: Heparin 500 UNITS/5 ML SYRINGE IV (09:11)
[2023-04-30] MEDS: Normal Saline Flush 10 ML SYR IVP (09:11)
[2023-04-30 09:38] LABS: ALT 59 U/L (14-59); AST 20 U/L (15-37); Albumin 3.3 g/dL (3.4-5.0); Alkaline Phosphatase 63 U/L (46-116); Anion Gap 9.3 mmol/L (3-11); BUN 15 mg/dL (7-18); Bilirubin, Total 0.6 mg/dL (0.2-1.0); CO2 26.7 mmol/L (21.0-32.0); CREATININE 0.8 mg/dL (0.55-1.02); Calcium 8.9 mg/dL (8.5-10.1); Chloride 104 mmol/L (98-107); Estimated GFR 82.74 (mL/min/1.73m2); Glucose 99 mg/dL (74-106); Potassium 4.2 mmol/L (3.5-5.1); Sodium 140 mmol/L (136-145); Total Protein 6.6 g/dL (6.4-8.2)
== END 2023-05-02 23:59 | disposition home or self-care (01) ==
LOC: INF 09:00
PROVIDERS: Internal Medicine; Internal Medicine Medical Oncology; PCP Nurse Practitioner Family; Visit Provider Nurse Practitioner Family
DX: C50.411 Malignant neoplasm of upper-outer quadrant of right female breast (principal); Z17.0 Estrogen receptor positive status [ER+]; Z45.2 Encounter for adjustment and management of vascular access device
CPT/HCPCS: 36591; 80053; 85025

== ENCOUNTER → 2023-05-10 00:31 | Outpatient (CLI) | payer MEDICAID, SELFPAY ==
--- NOTE | 2023-05-10 | DI.DEXA_ITS ---
Exam(s) XR DEXA BONE DENSITY W/WO SHERICE EXAM: XR DEXA BONE DENSITY W/WO SHERICE CLINICAL HISTORY: RT BREAST CA,C50.911,Z17.0 TECHNIQUE: Routine DEXA evaluation of the lumbar spine, hip, or forearm. COMPARISON: No exams were available for comparison FINDINGS: Performed on a Hologic unit. Lateral image: No compression fracture evident. Lumbar Spine total T-score: 1.2 Hip total T-score:-0.3 Independent reading at the level of the femoral neck yields T-score of -1.5 Forearm total T-score: -0.4 IMPRESSION: Bone mineral density measures in the normal bordering on osteopenia range. Fracture risk is low-moder ate Note: Any spine fracture indicates 5x risk for subsequent spine fracture and 2x risk for subsequent h ip fracture. World Health Organization criteria for BMD interpretation classify patients: Normal...... T- Score at or above -1.0 Osteopenic... T- Score between -1.0 and -2.5 Osteoporosis... T-Score at or below -2.5
== END ==
PROVIDERS: PCP Nurse Practitioner Family; Visit Provider Nurse Practitioner
DX: Z13.820 Encounter for screening for osteoporosis (principal); C50.911 Malignant neoplasm of unspecified site of right female breast; Z17.0 Estrogen receptor positive status [ER+]; M85.89 Other specified disorders of bone density and structure, multiple sites
CPT/HCPCS: 77080

== ENCOUNTER 2023-05-28 01:50 | Outpatient (RCR) | payer MEDICAID, SELFPAY ==
[2023-05-28] MEDS: Normal Saline Flush 10 ML SYR IVP (10:53)
[2023-05-28 11:29] LABS: Abs Immature Grans 0.04 10^3/uL (0.0-0.06); Absolute Basophil Count 0.02 10^3/uL (0.0-0.2); Absolute Eosinophil Count 0.03 10^3/uL (0.0-0.7); Absolute Lymphocyte Count 0.56 10^3/uL (1.2-3.4); Absolute Monocyte Count 0.43 10^3/uL (0.1-0.8); Absolute Neutrophil Count 3.34 10^3/uL (1.2-6.7); Basophils % 0.5; Eosinophils % 0.7; HCT 37.4 % (36.0-46.0); HGB 12.1 g/dL (11.2-15.7); Immature Grans % 0.9; Lymphocytes % 12.7; MCH 28.7 pg (27.0-33.0); MCHC 32.4 % (32.0-36.0); MCV 89 fL (80-95); MPV 10.1 fL (8.0-11.0); Monocytes % 9.7; Neutrophils % 75.5; Platelet Count 284 10^3/uL (130-400); RBC 4.22 10^6/uL (3.93-5.22); RDW 17.2 % (11.7-14.6); RDW-SD 54.7 fL; WBC 4.42 10^3/uL (4.4-10.8)
[2023-05-28 11:38] LABS: ALT 45 U/L (14-59); AST 25 U/L (15-37); Albumin 2.9 g/dL (3.4-5.0); Alkaline Phosphatase 113 U/L (46-116); BUN 5 mg/dL (7-18); Bilirubin, Total 0.6 mg/dL (0.2-1.0); CREATININE 0.7 mg/dL (0.55-1.02); Calcium 9.2 mg/dL (8.5-10.1); Chloride 107 mmol/L (98-107); Estimated GFR 97.12 (mL/min/1.73m2); Glucose 104 mg/dL (74-106); Potassium 3.6 mmol/L (3.5-5.1); Sodium 144 mmol/L (136-145); Total Protein 6.8 g/dL (6.4-8.2)
== END 2023-06-02 23:59 | disposition home or self-care (01) ==
LOC: INF 01:50
PROVIDERS: PCP Nurse Practitioner Family; Visit Provider Nurse Practitioner Family
DX: C50.911 Malignant neoplasm of unspecified site of right female breast (principal); Z17.0 Estrogen receptor positive status [ER+]; Z45.2 Encounter for adjustment and management of vascular access device
CPT/HCPCS: 36591; 80053; 83735; 85025

== ENCOUNTER 2023-06-18 03:38 | Outpatient (RCR) | payer MEDICAID, SELFPAY ==
[2023-06-18] MEDS: Normal Saline Flush 10 ML SYR IVP (10:18)
[2023-06-18 10:32] LABS: Abs Immature Grans 0.02 10^3/uL (0.0-0.06); Absolute Basophil Count 0.05 10^3/uL (0.0-0.2); Absolute Lymphocyte Count 0.57 10^3/uL (1.2-3.4); Absolute Monocyte Count 0.48 10^3/uL (0.1-0.8); Absolute Neutrophil Count 3.62 10^3/uL (1.2-6.7); Eosinophils % 2.1; HGB 12.4 g/dL (11.2-15.7); Immature Grans % 0.4; Lymphocytes % 11.8; MCH 27.9 pg (27.0-33.0); MCHC 31.8 % (32.0-36.0); MCV 88 fL (80-95); MPV 11.3 fL (8.0-11.0); Monocytes % 9.9; Neutrophils % 74.8; Platelet Count 207 10^3/uL (130-400); RBC 4.44 10^6/uL (3.93-5.22); RDW 14.9 % (11.7-14.6); RDW-SD 48.4 fL; WBC 4.84 10^3/uL (4.4-10.8)
[2023-06-18 10:49] LABS: ALT 37 U/L (14-59); AST 25 U/L (15-37); Albumin 3.1 g/dL (3.4-5.0); Alkaline Phosphatase 89 U/L (46-116); Anion Gap 8.4 mmol/L (3-11); BUN 8 mg/dL (7-18); Bilirubin, Total 0.5 mg/dL (0.2-1.0); CO2 26.6 mmol/L (21.0-32.0); CREATININE 0.7 mg/dL (0.55-1.02); Calcium 9.1 mg/dL (8.5-10.1); Chloride 106 mmol/L (98-107); Estimated GFR 97.12 (mL/min/1.73m2); Glucose 115 mg/dL (74-106); Magnesium 1.8 mg/dL (1.8-2.4); Potassium 3.7 mmol/L (3.5-5.1); Sodium 141 mmol/L (136-145); Total Protein 6.7 g/dL (6.4-8.2)
== END 2023-07-03 23:59 | disposition home or self-care (01) ==
LOC: INF 03:38
PROVIDERS: Internal Medicine; PCP Nurse Practitioner Family; Visit Provider Nurse Practitioner Family
DX: Z17.0 Estrogen receptor positive status [ER+]; C50.411 Malignant neoplasm of upper-outer quadrant of right female breast
CPT/HCPCS: 36591; 80053; 83735; 85025

== ENCOUNTER → 2023-07-29 03:20 | Outpatient (CLI) | payer MEDICAID, SELFPAY ==
--- NOTE | 2023-07-29 08:15 | DI.MRI_ITS ---
Exam(s) MR BRAIN WO EXAM: MR BRAIN WO CLINICAL HISTORY: NEW HEADACHES,R51.9,HER2 + CA OF BREAST,C50.919,?BRAIN METS TECHNIQUE: Multiplanar multisequence MRI of the brain was performed. COMPARISON: No exams were available for comparison FINDINGS: CEREBRAL PARENCHYMA: There is no evidence of intracranial hemorrhage, mass effect, or shift of midline structures. There are no extra-axial fluid collections. Ventricles are not enlarged or shifted. There is no significant focal signal abnormality in the cerebellar hemispheres nor within the [place], m idbrain, and thalami. There are few small sub cm FLAIR bright signal foci in the bilateral white matter not associated with hemorrhage, surrounding edema, nor restricted diffusion PITUITARY GLAND: No mass nor parasellar abnormality. No obvious abnormality in the cavernous sinuses. FLOW VOIDS: The expected flow void are noted. No evidence of obvious aneurysm nor obvious vascular ma lformation. Left vertebral artery is dominant. PARANASAL SINUSES: Minimal mucosal thickening noted in the paranasal sinuses. However, there is effu amrita evident in the inferior left mastoid air cells. ORBITS: No obvious findings. IMPRESSION: There are few small nonspecific sub cm size FLAIR bright signal foci in the white matter bilaterally, not associated with hemorrhage, surrounding edema, nor restricted diffusion to suggest acute ischemi c events. Possibly related to chronic ischemic white matter sequela lie. Recommend repeat MRI in 6 months to ensure stability. Mild left mastoid effusion. Also mild paranasal sinus mucosal thickening. DATA REPOSITORY:
== END ==
PROVIDERS: PCP Nurse Practitioner Family; Visit Provider Internal Medicine Hematology & Oncology
DX: R51.9 Headache, unspecified (principal); C50.911 Malignant neoplasm of unspecified site of right female breast
CPT/HCPCS: 70551

== ENCOUNTER 2023-07-30 03:08 | Outpatient (RCR) | payer MEDICAID, SELFPAY ==
[2023-07-09] MEDS: Normal Saline Flush 10 ML SYR IVP (10:23)
[2023-07-09 10:30] LABS: Abs Immature Grans 0.01 10^3/uL (0.0-0.06); Absolute Basophil Count 0.02 10^3/uL (0.0-0.2); Absolute Eosinophil Count 0.08 10^3/uL (0.0-0.7); Absolute Lymphocyte Count 0.57 10^3/uL (1.2-3.4); Absolute Monocyte Count 0.39 10^3/uL (0.1-0.8); Absolute Neutrophil Count 3.57 10^3/uL (1.2-6.7); Basophils % 0.4; Eosinophils % 1.7; HCT 37.4 % (36.0-46.0); HGB 12.1 g/dL (11.2-15.7); Immature Grans % 0.2; Lymphocytes % 12.3; MCH 27.4 pg (27.0-33.0); MCHC 32.4 % (32.0-36.0); MCV 85 fL (80-95); MPV 11.4 fL (8.0-11.0); Monocytes % 8.4; Platelet Count 196 10^3/uL (130-400); RBC 4.41 10^6/uL (3.93-5.22); RDW 13.8 % (11.7-14.6); RDW-SD 42.8 fL; WBC 4.64 10^3/uL (4.4-10.8)
[2023-07-09 10:50] LABS: ALT 43 U/L (14-59); AST 27 U/L (15-37); Albumin 3.1 g/dL (3.4-5.0); Alkaline Phosphatase 83 U/L (46-116); Anion Gap 9.6 mmol/L (3-11); BUN 8 mg/dL (7-18); Bilirubin, Total 0.4 mg/dL (0.2-1.0); CO2 25.4 mmol/L (21.0-32.0); CREATININE 0.7 mg/dL (0.55-1.02); Chloride 105 mmol/L (98-107); Estimated GFR 97.12 (mL/min/1.73m2); Glucose 115 mg/dL (74-106); Sodium 140 mmol/L (136-145); Total Protein 6.6 g/dL (6.4-8.2)
[2023-07-16 11:00] LABS: FREE T4 1.59 ng/dL (0.76-1.46); TSH 0.01 uIU/mL (0.36-3.74)
[2023-07-30] MEDS: Normal Saline Flush 10 ML SYR IVP (12:20)
[2023-07-30 13:28] LABS: Absolute Basophil Count 0.03 10^3/uL (0.0-0.2); Absolute Eosinophil Count 0.15 10^3/uL (0.0-0.7); Absolute Lymphocyte Count 0.82 10^3/uL (1.2-3.4); Absolute Monocyte Count 0.43 10^3/uL (0.1-0.8); Basophils % 0.7; Eosinophils % 3.4; HCT 37.2 % (36.0-46.0); HGB 12.2 g/dL (11.2-15.7); Lymphocytes % 18.5; MCH 27.1 pg (27.0-33.0); MCHC 32.8 % (32.0-36.0); MCV 83 fL (80-95); MPV 11.6 fL (8.0-11.0); Monocytes % 9.7; Neutrophils % 67.7; Platelet Count 189 10^3/uL (130-400); RBC 4.51 10^6/uL (3.93-5.22); RDW 13.6 % (11.7-14.6); RDW-SD 40.9 fL; WBC 4.43 10^3/uL (4.4-10.8)
[2023-07-30 13:50] LABS: ALT 24 U/L (14-59); AST 18 U/L (15-37); Alkaline Phosphatase 87 U/L (46-116); Anion Gap 9.1 mmol/L (3-11); BUN 10 mg/dL (7-18); Bilirubin, Total 0.3 mg/dL (0.2-1.0); CO2 25.9 mmol/L (21.0-32.0); CREATININE 0.7 mg/dL (0.55-1.02); Calcium 8.7 mg/dL (8.5-10.1); Chloride 107 mmol/L (98-107); Estimated GFR 97.12 (mL/min/1.73m2); Glucose 116 mg/dL (74-106); Magnesium 1.6 mg/dL (1.8-2.4); Potassium 3.9 mmol/L (3.5-5.1); Sodium 142 mmol/L (136-145); Total Protein 6.3 g/dL (6.4-8.2)
== END 2023-08-01 23:59 | disposition home or self-care (01) ==
LOC: INF 03:08
PROVIDERS: Internal Medicine; PCP Nurse Practitioner Family; Visit Provider Nurse Practitioner Family
DX: C50.911 Malignant neoplasm of unspecified site of right female breast (principal); Z17.0 Estrogen receptor positive status [ER+]; Z45.2 Encounter for adjustment and management of vascular access device
CPT/HCPCS: 36591; 80053; 83735; 84439; 84443; 85025

== ENCOUNTER 2023-07-31 11:07 | Emergency (ER) | payer MEDICAID, SELFPAY ==
[2023-07-31 11:17] VITALS: BP 147/90; PULSE 72; RESP 18; TEMP 36.8; O2SAT 100
[2023-07-31 12:05] LABS: Abs Immature Grans 0.01 10^3/uL (0.0-0.06); Absolute Basophil Count 0.03 10^3/uL (0.0-0.2); Absolute Eosinophil Count 0.16 10^3/uL (0.0-0.7); Absolute Lymphocyte Count 0.78 10^3/uL (1.2-3.4); Absolute Monocyte Count 0.39 10^3/uL (0.1-0.8); Absolute Neutrophil Count 2.92 10^3/uL (1.2-6.7); Basophils % 0.7; Eosinophils % 3.7; HCT 34.8 % (36.0-46.0); HGB 11.3 g/dL (11.2-15.7); Immature Grans % 0.2; Lymphocytes % 18.2; MCH 26.7 pg (27.0-33.0); MCHC 32.5 % (32.0-36.0); MCV 82 fL (80-95); MPV 10.5 fL (8.0-11.0); Monocytes % 9.1; Neutrophils % 68.1; Platelet Count 163 10^3/uL (130-400); RBC 4.24 10^6/uL (3.93-5.22); RDW 13.5 % (11.7-14.6); RDW-SD 40.3 fL; WBC 4.29 10^3/uL (4.4-10.8)
[2023-07-31] MEDS: Normal Saline 1,000 ML 1000 ML IV (12:18)
[2023-07-31] MEDS: Ondansetron 4 MG/2 ML VIAL IVP (12:18)
[2023-07-31 13:06] LABS: ALT 22 U/L (14-59); AST 17 U/L (15-37); Alkaline Phosphatase 88 U/L (46-116); Anion Gap 10.7 mmol/L (3-11); BUN 8 mg/dL (7-18); Bilirubin, Total 0.3 mg/dL (0.2-1.0); CO2 24.3 mmol/L (21.0-32.0); CREATININE 0.6 mg/dL (0.55-1.02); Calcium 8.7 mg/dL (8.5-10.1); Chloride 106 mmol/L (98-107); Glucose 104 mg/dL (74-106); Lipase 33 U/L (16-77); Magnesium 1.8 mg/dL (1.8-2.4); Potassium 3.9 mmol/L (3.5-5.1); Sodium 141 mmol/L (136-145); Total Protein 6.2 g/dL (6.4-8.2); Troponin I < 50 ng/L (< or =60)
--- NOTE | 2023-07-31 13:45 | W.ED.GENAD ---
Discharge Plan Disposition Patient Disposition: Home Condition: Improving Discharge Details Clinical Impression: Diarrhea, Breast cancer Primary Care Provider: Tika Rock ED Provider: Kaisa Jimenes Home Meds and New Rx's Prescriptions: No Action lorazepam 1 MG tablet 1 mg PO PRN PRN (Reason: Anxiety) omeprazole 20 mg capsule,delayed release(DR/EC) 20 mg PO DAILY acetaminophen [Mapap Extra Strength] 500 MG tablet 500 mg PO Q8H PRN ondansetron 8 mg tablet,disintegrating 8 mg PO Q8H PRN Patient Comments: DISSOLVE ONE TABLET ON THE TONGUE EVERY 8 HOURS NEEDED FOR NAUSEA diphenoxylate-atropine 2.5-0.025 mg tablet 1 tab PO QID PRN Patient Comments: TAKE ONE TABLET BY MOUTH FOUR TIMES A DAY NEEDED FOR DIARRHEA prochlorperazine maleate 10 mg tablet 10 mg PO Q6H PRN Patient Comments: TAKE ONE TABLET BY MOUTH EVERY 6 HOURS NEEDED FOR NAUSEA levothyroxine 125 mcg tablet 125 mcg PO DAILY Patient Comments: Take 1 tablet by mouth once a day Eliquis 5 mg Tablet 5 mg PO BID Qty: 60 0RF cholestyramine-aspartame [Prevalite] 4 gram Powder In Packet 1 packet PO 1000,1900 Qty: 60 0RF metoprolol tartrate 25 mg Tablet 12.5 mg PO BID Qty: 30 0RF L. Acidophilus,Casei,Rhamnosus [Bio-K Plus] 1 cap PO DAILY Qty: 30 0RF vancomycin 125 mg Capsule 125 mg PO Q6H Qty: 17 0RF fluoxetine 10 mg capsule Patient Comments: TAKE ONE CAPSULE BY MOUTH EVERY DAY potassium chloride 10 mEq tablet extended release PO Patient Comments: TAKE ONE TABLET BY MOUTH EVERY DAY dexamethasone 2 mg tablet Patient Comments: TAKE ONE TABLET BY MOUTH TWICE A DAY WITH MEALS pyridoxine (vitamin B6) 50 mg capsule 50 mg PO DAILY Discharge Instructions Instructions: Acute Diarrhea (ED) Additional Instructions: Continue hydrating orally and taking Imodium as needed. Follow-up with cancer center. Return with any worsening symptoms, fevers, abdominal pain. Referrals: Tika Rock [Primary Care Provider] - 3 days Discharge Data Discharge Physician: Kasia Jimenes [facility] General Date/Time Provider Initiated Documentation: 07/31/23 11:33. HPI Narrative: 63-year-old female with history of breast cancer presents for evaluation of diarrhea. Patient states that she has had 12 episodes of liquidy diarrhea since last night. Denies any significant abdominal pain. No fevers or chills. No cough or cold. No vomiting. She is still urinating. She has been having some difficulty with some of her chemotherapy medications and they have been changing her regimen. She took 2 doses of Lomotil as well as 3 doses of Imodium prior to arrival. She has a remote history of C. difficile. She has not had any recent antibiotics. Denies any chest pain or shortness of breath. Related Data Home Medications Medication Instructions Recorded Confirmed acetaminophen 500 mg tablet (Mapap 500 mg PO Q8H PRN 11/30/14 07/31/23 Extra Strength) lorazepam 1 mg tablet 1 mg PO PRN PRN Anxiety 11/30/14 02/05/23 omeprazole 20 mg capsule,delayed 20 mg PO DAILY 01/08/22 07/31/23 release diphenoxylate-atropine 2.5 1 tab PO QID PRN 02/05/23 02/05/23 mg-0.025 mg tablet levothyroxine 125 mcg tablet 125 mcg PO DAILY 02/05/23 07/31/23 ondansetron 8 mg disintegrating 8 mg PO Q8H PRN 02/05/23 02/05/23 tablet prochlorperazine maleate 10 mg 10 mg PO Q6H PRN 02/05/23 02/05/23 tablet L. Acidophilus,Casei,Rhamnosus 1 cap PO DAILY #30 caps 02/10/23 [Bio-K PLUS] apixaban 5 mg tablet (Eliquis) 5 mg PO BID #60 tabs 02/10/23 cholestyramine-aspartame 4 gram 1 packet PO 1000,1900 #60 ea 02/10/23 oral powder for susp in a packet (Prevalite) metoprolol tartrate 25 mg tablet 12.5 mg (1/2 x 25 mg) PO BID #30 02/10/23 tabs vancomycin 125 mg capsule 125 mg PO Q6H #17 caps 02/10/23 dexamethasone 2 mg tablet mg 07/31/23 fluoxetine 10 mg capsule mg 07/31/23 potassium chloride 10 mEq meq PO 07/31/23 tablet,extended release pyridoxine (vitamin B6) 50 mg 50 mg PO DAILY 02/28/24 02/28/24 capsule Previous Rx's Medication Instructions Recorded L. Acidophilus,Casei,Rhamnosus 1 cap PO DAILY #30 caps 02/10/23 [Bio-K PLUS] apixaban 5 mg tablet (Eliquis) 5 mg PO BID #60 tabs 02/10/23 cholestyramine-aspartame 4 gram 1 packet PO 1000,1900 #60 ea 02/10/23 oral powder for susp in a packet (Prevalite) metoprolol tartrate 25 mg tablet 12.5 mg (1/2 x 25 mg) PO BID #30 02/10/23 tabs vancomycin 125 mg capsule 125 mg PO Q6H #17 caps 02/10/23 Allergies Allergy/AdvReac Type Severity Reaction Status Date / Time etodolac [From Lodine] Allergy swelling Unverified 02/05/23 10:58 of hands Sulfa (Sulfonamide Allergy rash, Unverified 02/05/23 10:58 Antibiotics) hand/arm swelling latex AdvReac Intermediate Hives Unverified 02/05/23 10:58 ciprofloxacin [From Cipro] AdvReac N/V Unverified 02/05/23 10:58 ciprofloxacin HCl AdvReac N/V Unverified 02/05/23 10:58 [From Cipro] General Stated Complaint: Nausea/Vomit/Diar FISH: 3 Exam Narrative Exam Narrative: General: non-toxic, no respiratory distress, comfortable HEENT: normocephalic, atraumatic, lids and lashes normal, PERRL, EOMI, anicteric sclera, no conjunctival injection, moist oral mucosa Card: regular rate and rhythm, S1S2, no murmurs, rubs, or gallops Lungs: good air entry, clear to auscultation bilaterally. no wheezes, rales, rhonchi, or retractions Abd: soft, non-tender, non-distended, normal bowel sounds, no rebound or guarding, no peritoneal signs Musculoskeletal: full range of motion of arms and legs, no tenderness to palpation. no clubbing, cyanosis, or edema Neurologic: appropriate for age, strength normal Psych: alert and oriented Skin: no petechiae, no lesions, warm and dry Course Vital Signs Vital signs: Vital Signs Temperature 36.8 C 07/31/23 11:17 Pulse 72 07/31/23 11:17 Respiratory Rate 18 07/31/23 11:17 Blood Pressure 147/90 H 07/31/23 11:17 Pulse Oximetry 100 07/31/23 11:17 Temperature 36.8 C 07/31/23 11:17 Pulse 72 07/31/23 11:17 Respiratory Rate 18 07/31/23 11:17 Respiratory Effort Normal 07/31/23 11:33 Blood Pressure 147/90 H 07/31/23 11:17 Pulse Oximetry 100 07/31/23 11:17 Oxygen Delivery Method Room Air 07/31/23 11:17 Oxygen Flow Rate 0 07/31/23 11:17 Pain Level 3 07/31/23 11:17 Comment has had LO for weeks 07/31/23 11:17 Lab/Test Results Lab/Test Results: Laboratory Tests Range/Units 07/31/23 12:00 WBC (4.4-10.8) 10^3/uL 4.29 L RBC (3.93-5.22) 10^6/uL 4.24 Hgb (11.2-15.7) g/dL 11.3 Hct (36.0-46.0) % 34.8 L MCV (80-95) fL 82 MCH (27.0-33.0) pg 26.7 L MCHC (32.0-36.0) % 32.5 RDW (11.7-14.6) % 13.5 Plt Count (130-400) 10^3/uL 163 MPV (8.0-11.0) fL 10.5 Immature Gran % 0.2 Neutrophils % 68.1 Lymphocytes % 18.2 Monocytes % 9.1 Eosinophils % 3.7 Basophils % 0.7 Nucleated RBC % (0.0-0.3) % 0.0 Absolute Neutrophils (1.2-6.7) 10^3/uL 2.92 Absolute Lymphocytes (1.2-3.4) 10^3/uL 0.78 L Absolute Monocytes (0.1-0.8) 10^3/uL 0.39 Absolute Eosinophils (0.0-0.7) 10^3/uL 0.16 Absolute Basophils (0.0-0.2) 10^3/uL 0.03 Sodium (136-145) mmol/L 141 Potassium (3.5-5.1) mmol/L 3.9 Chloride (98-107) mmol/L 106 Carbon Dioxide (21.0-32.0) mmol/L 24.3 Anion Gap (3-11) mmol/L 10.7 BUN (7-18) mg/dL 8 Creatinine (0.55-1.02) mg/dL 0.6 Est GFR (CKD-EPI 2020) (mL/min/1.73m2) 100.80 Glucose (74-106) mg/dL 104 Calcium (8.5-10.1) mg/dL 8.7 Magnesium (1.8-2.4) mg/dL 1.8 Total Bilirubin (0.2-1.0) mg/dL 0.3 AST (15-37) U/L 17 ALT (14-59) U/L 22 Alkaline Phosphatase (46-116) U/L 88 Troponin I (< or =60) ng/L < 50 Total Protein (6.4-8.2) g/dL 6.2 L Albumin (3.4-5.0) g/dL 3.0 L Lipase (16-77) U/L 33 Medical Decision Making 63-year-old female with history of breast cancer presents for evaluation of diarrhea. This is likely secondary to her chemotherapy. Patient had multiple liquid movements at home. She did take 2 doses of Lomotil as well as 3 doses of Imodium prior to ED arrival. She received IV fluids. Laboratory studies are unremarkable. No signs of dehydration or electrolyte abnormality. Patient was unable to give a stool sample while in the emergency department. Case was discussed with cancer center will follow-up with patient tomorrow. They did not need any further imaging. Her abdominal exam is benign and I do not feel that CT of abdomen is warranted at this time. Patient understands indications to return. She will be given materials to collect her stool at home given her remote history of C. difficile. Quality:SDOH Health Related Social Needs: No Data to Display PFSH All Active Problems Colitis (Acute) Diarrhea (Acute) Acute hypokalemia (Acute) Acute dehydration (Acute) Discharge planning issues (Acute) DVT prophylaxis (Acute) Back pain (Acute) Atrial fibrillation (Chronic) C. 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 GERD (gastroesophageal reflux disease) Hyperlipidemia Prediabetes History of thyroid cancer BMI 35.0-35.9,adult Allergic rhinitis Pneumonia Malaise and fatigue Rosacea Acute cystitis Surgical History History of partial hysterectomy H/O colonoscopy (~08/10/22) H/O esophagogastroduodenoscopy History of laryngoplasty Hx of cholecystectomy Hx of thyroidectomy Social History Smoking/Tobacco Use Status: Former Tobacco Use Quit Date: 06/03/83 Smoking risk assessment performed?: Yes Alcohol Intake: current Alcohol Intake frequency: a few times a month Drug use: Rarely Substance use type: marijuana Details: marijuana inh t-2 Housing: apartment Do you feel safe at home: Yes Do you feel safe in your relationship?: Yes
== END 2023-07-31 14:04 | disposition home or self-care (01) ==
PROVIDERS: Emergency Provider Emergency Medicine Emergency Medical Services; PCP Nurse Practitioner Family
DX: R19.7 Diarrhea, unspecified (principal); C50.919 Malignant neoplasm of unspecified site of unspecified female breast; E78.5 Hyperlipidemia, unspecified; Z92.21 Personal history of antineoplastic chemotherapy
CPT/HCPCS: 80053; 83690; 96361; 96374; 99284; 83735; 84484; 85025; J2405

== ENCOUNTER 2023-08-01 14:38 | Outpatient (REF) | payer MEDICAID, SELFPAY ==
[2023-08-01 17:43] LABS: C Diff PCR Negative (Negative)
[2023-08-02 10:45] LABS: Campylobacter PCR Negative (Negative); Salmonella PCR Negative (Negative); Shiga Toxin PCR Negative (Negative); Shigella/Enteroinvasive Ecoli Negative (Negative)
== END 2023-08-01 14:39 | disposition home or self-care (01) ==
LOC: LBN 14:38
PROVIDERS: PCP Nurse Practitioner Family; Referring Provider Emergency Medicine Emergency Medical Services; Visit Provider Emergency Medicine Emergency Medical Services
DX: R19.7 Diarrhea, unspecified (principal)
CPT/HCPCS: 87493; 87505

== ENCOUNTER → 2023-08-09 00:36 | Outpatient (CLI) | payer MEDICAID, SELFPAY ==
--- NOTE | 2023-08-09 | DI.MAMMO_ITS ---
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 COMPARISON: Available for comparison. FINDINGS: Masses/Architectural Distortion: The patient is status post right mastectomy. No nodule or areas of architectural distortion are seen. Microcalcifications: No suspicious pleomorphic-type are seen. Skin Thickening/Nipple Retraction: None. IMPRESSION: 1. No significant interval change with no specific features of malignancy noted. 2. Unless there is more urgent need, screening mammography is recommended, as per [employer] guidelines. BI-RADS Category 1 - Negative Breast Density - Category B - Scattered areas of fibroglandular density Breast density category C or D implies that the patient has dense breast tissue. Dense breast tissue is very common and is not abnormal but dense breast tissue can make it harder to find cancer on a ma mmogram. Also, dense breast tissue may increase their breast cancer risk. This information about the result of the mammogram report was provided to the patient to raise their awareness. Use this report when you speak with the patient about their risks for breast cancer, which includes their family hist ory. At that time, you may recommend for more screening tests (Ultrasound or MRI) as they might be us eful based on their risk. A negative radiographic report should not delay biopsy if a dominant or clinically suspicious mass is present. Up to ten percent of cancers are not identified on mammography. A negative report may reinforce clinical impression. Adenosis and dense breasts may obscure an underlying neoplasm. False positive reports average 6 to 10%. Patient will receive a letter notifying them of these results.
== END ==
PROVIDERS: PCP Nurse Practitioner Family; Visit Provider Internal Medicine Hematology & Oncology
DX: Z12.31 Encounter for screening mammogram for malignant neoplasm of breast (principal); C50.919 Malignant neoplasm of unspecified site of unspecified female breast; T85.44XA Capsular contracture of breast implant, initial encounter
CPT/HCPCS: 77061; 77065; G0279

== ENCOUNTER 2023-08-19 10:51 | Outpatient (RCR) | payer MEDICAID, SELFPAY ==
[2023-08-19] MEDS: Normal Saline Flush 10 ML SYR IVP (11:07)
[2023-08-19 11:16] LABS: Abs Immature Grans 0.01 10^3/uL (0.0-0.06); Absolute Basophil Count 0.05 10^3/uL (0.0-0.2); Absolute Eosinophil Count 0.34 10^3/uL (0.0-0.7); Absolute Lymphocyte Count 0.83 10^3/uL (1.2-3.4); Absolute Monocyte Count 0.38 10^3/uL (0.1-0.8); Basophils % 1.3; Eosinophils % 8.7; Immature Grans % 0.3; Lymphocytes % 21.1; MCHC 31.6 % (32.0-36.0); MCV 82 fL (80-95); MPV 11.6 fL (8.0-11.0); Monocytes % 9.7; Neutrophils % 58.9; Platelet Count 200 10^3/uL (130-400); RBC 4.62 10^6/uL (3.93-5.22); RDW 13.6 % (11.7-14.6); RDW-SD 40.4 fL; WBC 3.93 10^3/uL (4.4-10.8)
[2023-08-19 11:17] LABS: Absolute Neutrophil Count 2.31 10^3/uL (1.2-6.7)
[2023-08-19 11:40] LABS: ALT 27 U/L (14-59); AST 21 U/L (15-37); Albumin 3.1 g/dL (3.4-5.0); Alkaline Phosphatase 106 U/L (46-116); Anion Gap 10.5 mmol/L (3-11); BUN 11 mg/dL (7-18); Bilirubin, Total 0.3 mg/dL (0.2-1.0); CO2 25.5 mmol/L (21.0-32.0); CREATININE 0.8 mg/dL (0.55-1.02); Calcium 8.7 mg/dL (8.5-10.1); Chloride 105 mmol/L (98-107); Estimated GFR 82.74 (mL/min/1.73m2); Glucose 118 mg/dL (74-106); Potassium 3.8 mmol/L (3.5-5.1); Sodium 141 mmol/L (136-145); Total Protein 6.6 g/dL (6.4-8.2)
== END 2023-09-01 23:59 | disposition home or self-care (01) ==
LOC: INF 10:51
PROVIDERS: PCP Nurse Practitioner Family; Referring Provider Nurse Practitioner Family; Visit Provider Nurse Practitioner Family
DX: C50.911 Malignant neoplasm of unspecified site of right female breast (principal); Z17.0 Estrogen receptor positive status [ER+]; Z45.2 Encounter for adjustment and management of vascular access device
CPT/HCPCS: 36591; 80053; 85025

== ENCOUNTER → 2023-08-27 02:25 | Outpatient (CLI) | payer MEDICAID, SELFPAY ==
--- NOTE | 2023-08-27 | DI.US_ITS ---
APPROVED REPORT EXAM: Comprehensive 2D, Doppler, and color-flow Echocardiogram Patient Location: Out-Patient Business Development Intern: Genna Hebert RDCS ([place]) Indications: Breast cancer, Cardiotoxic drug therapy, Assess for LVEF, GLS Other Information Study Quality: Good Conclusion Normal left ventricular wall thickness and chamber size. EF is 60-65%,wall motion is normal Normal right ventricular size and function Both atria are normal in size The aortic valve is trileaflet and mildly sclerotic wiothout stenosis or regurgitation Normal mitral valve with mild regurgitation Normal tricuspid valve with mild regurgitation Estimated right ventricular systolic pressure is 22 mmHg Wall motion Left Ventricle The left ventricle is normal size. The left ventricular systolic function is normal. The left ventric ular ejection fraction is within the normal range. GLS is 16.2%. There is normal left ventricular wal l thickness. There is normal LV segmental wall motion. There is no ventricular septal defect visualiz ed. LVEF is 60-65%. Right Ventricle The right ventricle is normal size. The right ventricular systolic function is normal. Atria The left atrium size is normal. The right atrium size is normal. The interatrial septum is intact wit h no evidence for an atrial septal defect. Aortic Valve The Aortic valve is mildly sclerotic. Aortic valve is trileaflet. There is no aortic valvular stenosi s. No aortic regurgitation is present. Mitral Valve The mitral valve is normal in structure. No evidence of mitral valve stenosis. Mild mitral regurgitat ion. Tricuspid Valve The tricuspid valve is normal in structure. There is no tricuspid valve stenosis. Mild tricuspid regu rgitation. The RVSP is 21.8 mmHg. Pulmonic Valve The pulmonary valve is normal in structure. There is no pulmonic valvular stenosis. Trace pulmonic re gurgitation. Great Vessels The aortic root is normal in size. The ascending aorta is normal in size. Aortic arch is normal in ca liber. IVC is normal in size and collapses >50% with inspiration. Pericardium There is no pericardial effusion. 2D Dimensions IVSD d PLAX 0.80 cm F: 0.6-1.0 Ao Root d 2.46 cm F: 2.7 - 3.3 LVPW d PLAX 0.81 cm F: 0.6 - 1.0 Ao Asc Diam d 3.03 cm F: 2.3 - 3.1 LVID d PLAX 4.34 cm F: 3.8 - 5.2 LVDs 2.88 cm F: 2.2 - 3.5 LV EF Teichholz 62.6 % FS 33.58 % LV EDV (Teich) 84.9 mL LV ESV (Teich) 31.7 mL M-Mode TAPSE 2.43 cm (M/F) >1.7 Auto EF LV EDV A4C 80.7 mL LV EDV A2C 88.3 mL LV EDV BP 84.1 mL LV ESV A4C 28.6 mL LV ESV A2C 37.6 mL LV ESV BP 33.0 mL LVEF(%) A4C 64.5 % LVEF(%) A2C 57.5 % LVEF(%) BP 60.8 % LV SV A4C 52.1 ml LV SV A2C 50.8 ml LV SV BP 51.1 ml LV CO A4C 3.5 L/min LV CO A2C 3.3 L/min LV CO BP 3.4 L/min HR A4C 66.79 BPM HR A2C 65.10 BPM LV EDV Index (BP) LV Strain Long Pk Overal Avg (s) 16.16 RV Strain Global Peak Long. Strain A4C 19.44 Global Peak Long. Strain A4C FW 22.57 LA Volume LA Length A4C 5.8 cm LA Length A2C 6.2 cm LA Area A4C s 19.17 cm2 LA Area A2C s 20.52 cm2 LA Vol A4C A-L 54.07 mL LA Vol A2C A-L 57.38 mL LA Vol Biplane A-L 57.9 mL LA Vol/BSA A4C A-L LA Vol/BSA A2C A-L LA Vol/BSA BP A-L 31.3 mL/m2 LA Vol A4C MOD 49.8 mL LA Vol A2C MOD 53.1 mL LA Vol BP MOD 53.1 mL RA Volume RA Area A4C 18.0 cm2 RA ESV A4C (A-L) 50.9mL RA Vol/BSA A4C A-L RA Length A4C 5.4 cm RA ESV A4C (MOD) 48.9mL LV Diastology MV E' medial 0.103 (>0.07 m/s) MV E Vmax 0.81 (0.4-1.3 m/s) MV E/E' MED 7.86 (<14) MV A Vmax 1.00 (0.4-1.3 m/s) MV E' lateral 0.139 (>0.1 m/s) E/A Ratio 0.8 MV E/E' LAT 5.84 (<14) MV E' Average 0.121 m/s MV E/E'(average) 6.70 Aortic Valve AoV Vmax 1.47 m/s LVOT Vmax 1.04 m/s AoV Peak Grad 8.7 mmHg LVOT Peak Grad 4.3 mmHg AoV Area (Vmax) 2.18 cm2 LVOT VTI 0.223 m AoV VTI 0.327 m LVOT Mean Grad 2.2 mmHg AoV Mean Noah. 0.97 m/s LVOT SV 68.76 mL AoV Mean Grad 4.3 mmHg LVOT Diam s 1.95 cm AoV Area (VTI) 2.10 cm2 Velocity Ratio 0.71 Mitral Valve MV DT 187 (160-240 msec) MV Vmax TIPS 1.06 m/s MV Mean Grad 2.0 (<2mmHg) MV VTI 0.244 m Pulmonary Valve PV Vmax 1.18 (0.5-1.5 m/s) RVOT Vmax 0.61 m/s PV Peak Grad 5.6 mmHg RVOT Peak Gr. 1.5 mmHg PV Mean Noah 0.97 m/s RVOT VTI 0.138 m PV Mean Grad 3.9 mmHg RVOT Mean Gr. 0.9 mmHg Tricuspid Valve RA Pressure 3.00 mmHg TR Vmax 2.17 m/s TV S' 0.12 m/s TR Peak Grad 18.8 mmHg RVSP (TR) 21.8 mmHg
== END ==
PROVIDERS: PCP Nurse Practitioner Family; Visit Provider Internal Medicine Hematology & Oncology
DX: C50.911 Malignant neoplasm of unspecified site of right female breast (principal); Z51.81 Encounter for therapeutic drug level monitoring; Z79.899 Other long term (current) drug therapy
CPT/HCPCS: 93306

== ENCOUNTER 2023-10-01 05:30 | Outpatient (RCR) | payer MEDICAID, SELFPAY ==
[2023-09-10 11:25] LABS: Abs Immature Grans 0.01 10^3/uL (0.0-0.06); Absolute Basophil Count 0.04 10^3/uL (0.0-0.2); Absolute Lymphocyte Count 0.78 10^3/uL (1.2-3.4); Absolute Monocyte Count 0.33 10^3/uL (0.1-0.8); Basophils % 0.9; Eosinophils % 6.8; HCT 37.3 % (36.0-46.0); HGB 11.8 g/dL (11.2-15.7); Immature Grans % 0.2; Lymphocytes % 17.8; MCH 25.4 pg (27.0-33.0); MCHC 31.6 % (32.0-36.0); MCV 80 fL (80-95); MPV 11.6 fL (8.0-11.0); Monocytes % 7.5; Neutrophils % 66.8; Platelet Count 175 10^3/uL (130-400); RBC 4.65 10^6/uL (3.93-5.22); RDW 14.5 % (11.7-14.6); RDW-SD 41.6 fL; WBC 4.38 10^3/uL (4.4-10.8)
[2023-09-10 11:26] LABS: Absolute Neutrophil Count 2.93 10^3/uL (1.2-6.7)
[2023-09-10] MEDS: Normal Saline Flush 10 ML SYR IVP (11:31)
[2023-09-10 11:42] LABS: ALT 26 U/L (14-59); AST 21 U/L (15-37); Albumin 3.2 g/dL (3.4-5.0); Alkaline Phosphatase 116 U/L (46-116); Anion Gap 9.9 mmol/L (3-11); BUN 12 mg/dL (7-18); Bilirubin, Total 0.3 mg/dL (0.2-1.0); CO2 26.1 mmol/L (21.0-32.0); CREATININE 0.7 mg/dL (0.55-1.02); Calcium 8.8 mg/dL (8.5-10.1); Chloride 106 mmol/L (98-107); Estimated GFR 97.12 (mL/min/1.73m2); Glucose 115 mg/dL (74-106); Potassium 3.8 mmol/L (3.5-5.1); Sodium 142 mmol/L (136-145); Total Protein 6.7 g/dL (6.4-8.2)
[2023-09-10 11:52] LABS: TSH (W/Ref FT4) 0.05 uIU/mL (0.36-3.74)
[2023-09-10 12:09] LABS: FREE T4 1.16 ng/dL (0.76-1.46)
[2023-10-01] MEDS: Normal Saline Flush 10 ML SYR IVP (13:38)
[2023-10-01 13:48] LABS: Abs Immature Grans 0.01 10^3/uL (0.0-0.06); Absolute Basophil Count 0.04 10^3/uL (0.0-0.2); Absolute Eosinophil Count 0.25 10^3/uL (0.0-0.7); Absolute Lymphocyte Count 0.97 10^3/uL (1.2-3.4); Absolute Monocyte Count 0.37 10^3/uL (0.1-0.8); Absolute Neutrophil Count 3.85 10^3/uL (1.2-6.7); Basophils % 0.7; Eosinophils % 4.6; HGB 12.1 g/dL (11.2-15.7); Immature Grans % 0.2; Lymphocytes % 17.7; MCH 25.3 pg (27.0-33.0); MCHC 31.8 % (32.0-36.0); MCV 80 fL (80-95); MPV 10.9 fL (8.0-11.0); Monocytes % 6.7; Neutrophils % 70.1; Platelet Count 180 10^3/uL (130-400); RBC 4.78 10^6/uL (3.93-5.22); RDW 15.6 % (11.7-14.6); RDW-SD 44.7 fL; WBC 5.49 10^3/uL (4.4-10.8)
[2023-10-01 14:17] LABS: ALT 29 U/L (14-59); AST 19 U/L (15-37); Albumin 3.3 g/dL (3.4-5.0); Alkaline Phosphatase 109 U/L (46-116); Anion Gap 8.4 mmol/L (3-11); BUN 16 mg/dL (7-18); Bilirubin, Total 0.3 mg/dL (0.2-1.0); CO2 25.6 mmol/L (21.0-32.0); CREATININE 0.8 mg/dL (0.55-1.02); Calcium 8.5 mg/dL (8.5-10.1); Chloride 106 mmol/L (98-107); Estimated GFR 82.74 (mL/min/1.73m2); Glucose 128 mg/dL (74-106); Potassium 3.9 mmol/L (3.5-5.1); Sodium 140 mmol/L (136-145); Total Protein 6.9 g/dL (6.4-8.2)
== END 2023-10-01 23:59 | disposition home or self-care (01) ==
LOC: INF 05:30
PROVIDERS: Internal Medicine; PCP Nurse Practitioner Family; Referring Provider Nurse Practitioner Family; Visit Provider Nurse Practitioner Family
DX: E03.9 Hypothyroidism, unspecified (principal); C50.911 Malignant neoplasm of unspecified site of right female breast; Z17.0 Estrogen receptor positive status [ER+]; Z45.2 Encounter for adjustment and management of vascular access device
CPT/HCPCS: 36591; 80053; 84439; 84443; 85025

== ENCOUNTER 2023-10-22 04:57 | Outpatient (RCR) | payer MEDICAID, SELFPAY ==
[2023-10-22] MEDS: Normal Saline Flush 10 ML SYR IVP (08:48)
[2023-10-22 09:03] LABS: Abs Immature Grans 0.01 10^3/uL (0.0-0.06); Absolute Basophil Count 0.03 10^3/uL (0.0-0.2); Absolute Eosinophil Count 0.31 10^3/uL (0.0-0.7); Absolute Lymphocyte Count 0.79 10^3/uL (1.2-3.4); Absolute Monocyte Count 0.31 10^3/uL (0.1-0.8); Absolute Neutrophil Count 2.47 10^3/uL (1.2-6.7); Basophils % 0.8 %; Eosinophils % 7.9 %; HCT 38.7 % (36.0-46.0); HGB 12.2 g/dL (11.2-15.7); Immature Grans % 0.3 %; Lymphocytes % 20.2 %; MCH 25.2 pg (27.0-33.0); MCHC 31.5 % (32.0-36.0); MCV 80 fL (80-95); MPV 11.2 fL (8.0-11.0); Monocytes % 7.9 %; Neutrophils % 62.9 %; Platelet Count 176 10^3/uL (130-400); RBC 4.84 10^6/uL (3.93-5.22); RDW 16.4 % (11.7-14.6); RDW-SD 47.4 fL; WBC 3.92 10^3/uL (4.4-10.8)
[2023-10-22 09:13] LABS: ALT 29 U/L (14-59); AST 15 U/L (15-37); Albumin 3.5 g/dL (3.4-5.0); Alkaline Phosphatase 109 U/L (46-116); Anion Gap 7.4 mmol/L (3-11); BUN 9 mg/dL (7-18); Bilirubin, Total 0.4 mg/dL (0.2-1.0); CO2 26.6 mmol/L (21.0-32.0); CREATININE 0.8 mg/dL (0.55-1.02); Calcium 8.9 mg/dL (8.5-10.1); Chloride 106 mmol/L (98-107); Estimated GFR 82.74 (mL/min/1.73m2); Glucose 118 mg/dL (74-106); Potassium 4.2 mmol/L (3.5-5.1); Sodium 140 mmol/L (136-145); Total Protein 7.1 g/dL (6.4-8.2)
== END 2023-11-01 23:59 | disposition home or self-care (01) ==
LOC: INF 04:57
PROVIDERS: Internal Medicine; PCP Nurse Practitioner Family; Visit Provider Nurse Practitioner Family
DX: C50.911 Malignant neoplasm of unspecified site of right female breast (principal); Z17.0 Estrogen receptor positive status [ER+]
CPT/HCPCS: 36591; 80053; 85025

== ENCOUNTER 2023-11-12 04:57 | Outpatient (RCR) | payer MEDICAID, SELFPAY ==
[2023-11-12] MEDS: Normal Saline Flush 10 ML SYR IVP (09:20)
[2023-11-12 10:32] LABS: Abs Immature Grans 0.02 10^3/uL (0.0-0.06); Absolute Basophil Count 0.04 10^3/uL (0.0-0.2); Absolute Eosinophil Count 0.21 10^3/uL (0.0-0.7); Absolute Lymphocyte Count 0.86 10^3/uL (1.2-3.4); Absolute Monocyte Count 0.29 10^3/uL (0.1-0.8); Absolute Neutrophil Count 2.54 10^3/uL (1.2-6.7); Eosinophils % 5.3 %; HCT 35.9 % (36.0-46.0); HGB 11.6 g/dL (11.2-15.7); Immature Grans % 0.5 %; Lymphocytes % 21.7 %; MCH 25.7 pg (27.0-33.0); MCHC 32.3 % (32.0-36.0); MCV 80 fL (80-95); MPV 12.6 fL (8.0-11.0); Monocytes % 7.3 %; Neutrophils % 64.2 %; Platelet Count 183 10^3/uL (130-400); RBC 4.51 10^6/uL (3.93-5.22); RDW 16.7 % (11.7-14.6); WBC 3.96 10^3/uL (4.4-10.8)
[2023-11-12 10:48] LABS: ALT 30 U/L (14-59); AST 16 U/L (15-37); Albumin 3.4 g/dL (3.4-5.0); Alkaline Phosphatase 96 U/L (46-116); Anion Gap 9.2 mmol/L (3-11); BUN 13 mg/dL (7-18); Bilirubin, Total 0.4 mg/dL (0.2-1.0); CO2 26.8 mmol/L (21.0-32.0); CREATININE 0.8 mg/dL (0.55-1.02); Calcium 8.8 mg/dL (8.5-10.1); Chloride 106 mmol/L (98-107); Estimated GFR 82.74 (mL/min/1.73m2); Glucose 102 mg/dL (74-106); Potassium 4.2 mmol/L (3.5-5.1); Sodium 142 mmol/L (136-145); Total Protein 6.9 g/dL (6.4-8.2)
== END 2023-12-01 23:59 | disposition home or self-care (01) ==
LOC: INF 04:57
PROVIDERS: Internal Medicine; Visit Provider Nurse Practitioner Family
DX: C50.911 Malignant neoplasm of unspecified site of right female breast (principal); Z17.0 Estrogen receptor positive status [ER+]
CPT/HCPCS: 36591; 80053; 83735; 85025

== ENCOUNTER 2023-12-02 10:17 | Outpatient (RCR) | payer MEDICAID, SELFPAY ==
[2023-12-02] MEDS: Normal Saline Flush 10 ML SYR IVP (10:37)
[2023-12-02 10:56] LABS: Abs Immature Grans 0.01 10^3/uL (0.0-0.06); Absolute Basophil Count 0.03 10^3/uL (0.0-0.2); Absolute Eosinophil Count 0.18 10^3/uL (0.0-0.7); Absolute Lymphocyte Count 0.81 10^3/uL (1.2-3.4); Absolute Monocyte Count 0.29 10^3/uL (0.1-0.8); Absolute Neutrophil Count 2.39 10^3/uL (1.2-6.7); Basophils % 0.8 %; Eosinophils % 4.9 %; HCT 36.2 % (36.0-46.0); HGB 11.6 g/dL (11.2-15.7); Immature Grans % 0.3 %; Lymphocytes % 21.8 %; MCH 25.8 pg (27.0-33.0); MCV 81 fL (80-95); MPV 11.5 fL (8.0-11.0); Monocytes % 7.8 %; Neutrophils % 64.4 %; Platelet Count 161 10^3/uL (130-400); RBC 4.49 10^6/uL (3.93-5.22); RDW 15.8 % (11.7-14.6); RDW-SD 46.1 fL; WBC 3.71 10^3/uL (4.4-10.8)
[2023-12-02 11:13] LABS: ALT 29 U/L (14-59); AST 21 U/L (15-37); Albumin 3.4 g/dL (3.4-5.0); Alkaline Phosphatase 95 U/L (46-116); Anion Gap 9.3 mmol/L (3-11); BUN 21 mg/dL (7-18); Bilirubin, Total 0.34 mg/dL (0.2-1.0); CO2 26.7 mmol/L (21.0-32.0); CREATININE 0.8 mg/dL (0.55-1.02); Calcium 8.9 mg/dL (8.5-10.1); Chloride 104 mmol/L (98-107); Estimated GFR 82.74 (mL/min/1.73m2); Glucose 107 mg/dL (74-106); Potassium 4.2 mmol/L (3.5-5.1); Sodium 140 mmol/L (136-145); Total Protein 6.9 g/dL (6.4-8.2)
[2023-12-02 11:24] LABS: FREE T4 0.99 ng/dL (0.76-1.46); TSH 5.37 uIU/Ml (0.36-3.74)
== END 2024-01-01 23:59 | disposition home or self-care (01) ==
LOC: INF 10:17
PROVIDERS: Internal Medicine; PCP Nurse Practitioner Family; Visit Provider Nurse Practitioner Family
DX: C50.911 Malignant neoplasm of unspecified site of right female breast (principal); Z17.0 Estrogen receptor positive status [ER+]; Z45.2 Encounter for adjustment and management of vascular access device
CPT/HCPCS: 36591; 80053; 84439; 84443; 85025

== ENCOUNTER → 2023-12-17 01:23 | Outpatient (CLI) | payer MEDICAID, SELFPAY ==
--- NOTE | 2023-12-17 | DI.US_ITS ---
APPROVED REPORT EXAM: Comprehensive 2D, Doppler, and color-flow Echocardiogram Patient Location: Out-Patient Locksmith: Genna Hebert RDCS ([facility]) Indications: Cardiotoxic drug therapy Other Information Study Quality: Adequate Conclusion Normal left ventricular wall thickness and chamber size. Ejection fraction is 60%. Wall motion is n ormal Normal right ventricular size and function Both atria are normal in size Aortic valve is mildly sclerotic and trileaflet without stenosis or regurgitation Normal mitral valve with mild regurgitation Estimated right ventricular systolic pressure is 21 mmHg Wall motion Left Ventricle The left ventricle is normal size. The left ventricular systolic function is normal. The left ventric ular ejection fraction is within the normal range. GLS is 15.5% There is normal left ventricular wall thickness. There is normal LV segmental wall motion. There is no ventricular septal defect visualize d. LVEF is 60%. Right Ventricle Right ventricle is grossly normal in size. Right ventricular systolic function is grossly normal. Atria The left atrium size is normal. The right atrium size is normal. The interatrial septum is intact wit h no evidence for an atrial septal defect. Aortic Valve The Aortic valve is mildly sclerotic. Aortic valve is trileaflet. There is no aortic valvular stenosi s. Mitral Valve The mitral valve is normal in structure. No evidence of mitral valve stenosis. Mild mitral regurgitat ion. Tricuspid Valve The tricuspid valve is normal in structure. There is no tricuspid valve stenosis. Mild tricuspid regu rgitation. The RVSP is 21.1mmHg. Pulmonic Valve The pulmonary valve is normal in structure. There is no pulmonic valvular stenosis. Trace pulmonic re gurgitation. Great Vessels The aortic root is normal in size. The ascending aorta is normal in size. Aortic arch is normal in ca liber. IVC is normal in size and collapses >50% with inspiration. Pericardium There is no pericardial effusion. 2D Dimensions IVSD d PLAX 0.84 cm F: 0.6-1.0 Ao Root d 2.47 cm F: 2.7 - 3.3 LVPW d PLAX 0.80 cm F: 0.6 - 1.0 Ao Asc Diam d 2.95 cm F: 2.3 - 3.1 LVID d PLAX 4.33 cm F: 3.8 - 5.2 LVDs 2.94 cm F: 2.2 - 3.5 LV EF Teichholz 60.3 % FS 31.94 % LV EDV (Teich) 84.3 mL LV ESV (Teich) 33.4 mL M-Mode TAPSE 2.77 cm (M/F) >1.7 Auto EF LV EDV A4C 93.9 mL LV EDV A2C 103.2 mL LV EDV BP 99.1 mL LV ESV A4C 40.7 mL LV ESV A2C 44.1 mL LV ESV BP 42.5 mL LVEF(%) A4C 56.7 % LVEF(%) A2C 57.3 % LVEF(%) BP 57.1 % LV SV A4C 53.3 ml LV SV A2C 59.1 ml LV SV BP 56.6 ml LV CO A4C 3.2 L/min LV CO A2C 3.6 L/min LV CO BP 3.4 L/min HR A4C 59.31 BPM HR A2C 61.23 BPM LV EDV Index (BP) LV Strain Long Pk Overal Avg (s) 15.55 LA Volume LA Length A4C 5.7 cm LA Length A2C 5.6 cm LA Area A4C s 17.99 cm2 LA Area A2C s 16.63 cm2 LA Vol A4C A-L 48.57 mL LA Vol A2C A-L 41.56 mL LA Vol Biplane A-L 45.0 mL LA Vol/BSA A4C A-L LA Vol/BSA A2C A-L LA Vol/BSA BP A-L 17.2 mL/m2 LA Vol A4C MOD 46.6 mL LA Vol A2C MOD 39.3 mL LA Vol BP MOD 42.8 mL LV Diastology MV E' medial 0.103 (>0.07 m/s) MV E Vmax 0.64 (0.4-1.3 m/s) MV E/E' MED 6.19 (<14) MV A Vmax 0.65 (0.4-1.3 m/s) MV E' lateral 0.154 (>0.1 m/s) E/A Ratio 1.0 MV E/E' LAT 4.11 (<14) MV E' Average 0.129 m/s MV E/E'(average) 4.94 Aortic Valve AoV Vmax 1.31 m/s LVOT Vmax 0.99 m/s AoV Peak Grad 6.9 mmHg LVOT Peak Grad 3.9 mmHg AoV Area (Vmax) 2.33 cm2 LVOT VTI 0.218 m AoV VTI 0.309 m LVOT Mean Grad 1.9 mmHg AoV Mean Noah. 0.88 m/s LVOT SV 67.23 mL AoV Mean Grad 3.6 mmHg LVOT Diam s 1.95 cm AoV Area (VTI) 2.17 cm2 Velocity Ratio 0.76 Mitral Valve MV DT 195 (160-240 msec) MV Vmax TIPS 0.86 m/s MV Mean Grad 1.2 (<2mmHg) MV VTI 0.264 m Pulmonary Valve PV Vmax 1.18 (0.5-1.5 m/s) RVOT Vmax 0.53 m/s PV Peak Grad 5.6 mmHg RVOT Peak Gr. 1.1 mmHg PV Mean Noah 0.80 m/s RVOT VTI 0.146 m PV Mean Grad 3.0 mmHg RVOT Mean Gr. 0.6 mmHg Tricuspid Valve RA Pressure 3.00 mmHg TR Vmax 2.13 m/s TV S' 0.11 m/s TR Peak Grad 18.0 mmHg RVSP (TR) 21.1 mmHg
== END ==
PROVIDERS: PCP Nurse Practitioner Family; Visit Provider Nurse Practitioner Family
DX: Z51.81 Encounter for therapeutic drug level monitoring (principal); Z79.899 Other long term (current) drug therapy
CPT/HCPCS: 93306

== ENCOUNTER 2024-01-14 02:30 | Outpatient (RCR) | payer MEDICAID, SELFPAY ==
[2024-01-14] MEDS: Normal Saline Flush 10 ML SYR IVP (11:00)
[2024-01-14 11:25] LABS: Abs Immature Grans 0.01 10^3/uL (0.0-0.06); Absolute Basophil Count 0.02 10^3/uL (0.0-0.2); Absolute Eosinophil Count 0.15 10^3/uL (0.0-0.7); Absolute Lymphocyte Count 0.72 10^3/uL (1.2-3.4); Absolute Monocyte Count 0.33 10^3/uL (0.1-0.8); Absolute Neutrophil Count 2.55 10^3/uL (1.2-6.7); Basophils % 0.5 %; HCT 37.9 % (36.0-46.0); HGB 11.9 g/dL (11.2-15.7); Immature Grans % 0.3 %; MCH 25.5 pg (27.0-33.0); MCHC 31.4 % (32.0-36.0); MCV 81 fL (80-95); MPV 12.3 fL (8.0-11.0); Monocytes % 8.7 %; Neutrophils % 67.5 %; Platelet Count 180 10^3/uL (130-400); RBC 4.67 10^6/uL (3.93-5.22); WBC 3.78 10^3/uL (4.4-10.8)
[2024-01-14 11:45] LABS: ALT 29 U/L (14-59); AST 16 U/L (15-37); Alkaline Phosphatase 103 U/L (46-116); Anion Gap 9.3 mmol/L (3-11); BUN 12 mg/dL (7-18); Bilirubin, Total 0.33 mg/dL (0.2-1.0); CO2 24.7 mmol/L (21.0-32.0); CREATININE 0.8 mg/dL (0.55-1.02); Calcium 8.6 mg/dL (8.5-10.1); Chloride 107 mmol/L (98-107); Estimated GFR 82.74 (mL/min/1.73m2); Glucose 121 mg/dL (74-106); Potassium 3.8 mmol/L (3.5-5.1); Sodium 141 mmol/L (136-145); Total Protein 6.6 g/dL (6.4-8.2)
== END 2024-02-01 23:59 | disposition home or self-care (01) ==
LOC: INF 02:30
PROVIDERS: PCP Nurse Practitioner Family; Visit Provider Internal Medicine Hematology & Oncology
DX: C50.811 Malignant neoplasm of overlapping sites of right female breast (principal); Z17.0 Estrogen receptor positive status [ER+]
CPT/HCPCS: 36591; 80053; 85025

== ENCOUNTER 2024-01-17 13:31 | Outpatient (REF) | payer MEDICAID, SELFPAY ==
[2024-01-17 20:30] LABS: FREE T4 1.72 ng/dL (0.76-1.46); TSH 0.04 uIU/Ml (0.36-3.74)
== END 2024-01-17 13:32 | disposition home or self-care (01) ==
LOC: NCHCN 13:31
PROVIDERS: PCP Nurse Practitioner Family; Visit Provider Nurse Practitioner Family
DX: E03.9 Hypothyroidism, unspecified (principal)
CPT/HCPCS: 84439; 84443

== ENCOUNTER 2024-02-25 01:25 | Outpatient (CLI) | payer MEDICAID, SELFPAY ==
--- NOTE | 2024-02-25 | DI.MRI_ITS ---
Exam(s) MR BRAIN WO/W EXAM: MR BRAIN WO/W CLINICAL HISTORY: BREAST CANCER, HEADACHES, PUNCTUATE LESIONS TECHNIQUE: Multiplanar multisequence MRI of the brain was performed. CONTRAST MATERIAL: IV Contrast: 18 mL of Dotarem contrast administered. COMPARISON: MR MR BRAIN WO from 07/29/2023 FINDINGS: VENTRICLES AND EXTRA AXIAL SPACES: Normal in size and morphology for the patient's age. HEMORRHAGE: None. CEREBRAL PARENCHYMA: No focus of restricted diffusion to suggest acute infarct. No space-occupying le amrita identified. There again seen a few hyperintense foci seen on the FLAIR and T2 weighted images in the white matter. These are stable. These likely reflect small vessel ischemic disease. No new le sions are present. These lesions show no enhancement following contrast administration. MIDLINE SHIFT: None. BRAINSTEM/CEREBELLUM: Normal. CALVARIUM: Normal. ENHANCEMENT: No suspicious enhancement identified. VISUALIZED PARANASAL SINUSES/MASTOIDS: Clear. CACHIL [place] OF [place]: Normal flow void. PITUITARY GLAND: Unremarkable. OTHER FINDINGS: IMPRESSION: 1. Stable white matter lesions likely reflecting small vessel ischemic disease. No enhancement of th e lesions seen to suggest metastatic disease. DATA REPOSITORY:
[2024-02-25] MEDS: Gadoterate meglumine 20 ML VIAL 18 ML IVP (08:38)
[2024-02-25] MEDS: Normal Saline Flush 10 ML SYR IVP (08:38)
== END 2024-02-25 01:45 ==
LOC: DI 01:26
PROVIDERS: PCP Nurse Practitioner Family; Visit Provider Internal Medicine Hematology & Oncology
DX: I67.82 Cerebral ischemia (principal)
CPT/HCPCS: 70553

== ENCOUNTER 2024-02-25 01:57 | Outpatient (RCR) | payer MEDICAID, SELFPAY ==
[2024-02-04] MEDS: Normal Saline Flush 10 ML SYR IVP (09:32)
[2024-02-04 10:19] LABS: Abs Immature Grans 0.01 10^3/uL (0.0-0.06); Absolute Basophil Count 0.04 10^3/uL (0.0-0.2); Absolute Eosinophil Count 0.14 10^3/uL (0.0-0.7); Absolute Lymphocyte Count 0.75 10^3/uL (1.2-3.4); Absolute Monocyte Count 0.36 10^3/uL (0.1-0.8); Eosinophils % 3.4 %; HCT 33.8 % (36.0-46.0); HGB 10.6 g/dL (11.2-15.7); Immature Grans % 0.2 %; Lymphocytes % 18.3 %; MCH 25.2 pg (27.0-33.0); MCHC 31.4 % (32.0-36.0); MCV 81 fL (80-95); MPV 12.2 fL (8.0-11.0); Monocytes % 8.8 %; Neutrophils % 68.3 %; Platelet Count 157 10^3/uL (130-400); RDW 15.3 % (11.7-14.6); RDW-SD 44.9 fL
[2024-02-04 10:41] LABS: ALT 31 U/L (14-59); AST 21 U/L (15-37); Albumin 3.2 g/dL (3.4-5.0); Alkaline Phosphatase 98 U/L (46-116); Anion Gap 9.8 mmol/L (3-11); BUN 10 mg/dL (7-18); CO2 26.2 mmol/L (21.0-32.0); CREATININE 0.8 mg/dL (0.55-1.02); Calcium 8.3 mg/dL (8.5-10.1); Chloride 107 mmol/L (98-107); Estimated GFR 82.23 (mL/min/1.73m2); Glucose 111 mg/dL (74-106); Potassium 3.7 mmol/L (3.5-5.1); Sodium 143 mmol/L (136-145); Total Protein 6.3 g/dL (6.4-8.2)
[2024-02-25] MEDS: Normal Saline Flush 10 ML SYR IVP (08:24)
== END 2024-03-02 23:59 | disposition home or self-care (01) ==
LOC: INF 01:57
PROVIDERS: PCP Nurse Practitioner Family; Visit Provider Internal Medicine Hematology & Oncology
DX: E03.9 Hypothyroidism, unspecified (principal); Z45.2 Encounter for adjustment and management of vascular access device
CPT/HCPCS: 36591; 80053; 96523; 85025

== ENCOUNTER 2024-03-17 09:49 | Outpatient (RCR) | payer MEDICAID, SELFPAY ==
[2024-03-17 14:57] LABS: FREE T4 1.29 ng/dL (0.76-1.46); TSH 0.49 uIU/mL (0.36-3.74)
[2024-03-17] MEDS: Normal Saline Flush 10 ML SYR IVP (15:02)
== END 2024-04-02 23:59 | disposition home or self-care (01) ==
LOC: INF 09:49
PROVIDERS: Nurse Practitioner Family; Visit Provider Internal Medicine Hematology & Oncology
DX: E03.9 Hypothyroidism, unspecified (principal); Z45.2 Encounter for adjustment and management of vascular access device
CPT/HCPCS: 36591; 84439; 84443

== ENCOUNTER 2024-08-07 15:32 | Outpatient (REF) | payer MEDICAID, SELFPAY ==
[2024-08-07 21:50] LABS: Abs Immature Grans 0.01 10^3/uL (0.0-0.06); Absolute Basophil Count 0.03 10^3/uL (0.0-0.2); Absolute Eosinophil Count 0.16 10^3/uL (0.0-0.7); Absolute Lymphocyte Count 0.96 10^3/uL (1.2-3.4); Absolute Monocyte Count 0.33 10^3/uL (0.1-0.8); Absolute Neutrophil Count 3.18 10^3/uL (1.2-6.7); Basophils % 0.6 %; Eosinophils % 3.4 %; HCT 40.1 % (36.0-46.0); HGB 12.5 g/dL (11.2-15.7); Immature Grans % 0.2 %; Lymphocytes % 20.6 %; MCH 25.1 pg (27.0-33.0); MCHC 31.2 % (32.0-36.0); MCV 80 fL (80-95); MPV 12.9 fL (8.0-11.0); Monocytes % 7.1 %; Neutrophils % 68.1 %; Platelet Count 186 10^3/uL (130-400); RBC 4.99 10^6/uL (3.93-5.22); RDW 16.2 % (11.7-14.6); WBC 4.67 10^3/uL (4.4-10.8)
[2024-08-07 22:11] LABS: Iron 40 ug/dL (50-170); Total Iron Binding Capacity 449 ug/dL (250-450); Transferrin Sat 9 % (15-50)
[2024-08-07 22:19] LABS: ALT 32 U/L (14-59); AST 22 U/L (15-37); Albumin 3.9 g/dL (3.4-5.0); Alkaline Phosphatase 112 U/L (46-116); Anion Gap 7.5 mmol/L (3-11); BUN 10 mg/dL (7-18); Bilirubin, Total 0.5 mg/dL (0.2-1.0); CO2 28.5 mmol/L (21.0-32.0); CREATININE 0.9 mg/dL (0.55-1.02); Calcium 9.3 mg/dL (8.5-10.1); Calculated LDL 159 mg/dL (<100); Chloride 107 mmol/L (98-107); Cholesterol 245 mg/dL (<200); Estimated GFR 71.39 (mL/min/1.73m2); Glucose 101 mg/dL (74-106); HDL Cholesterol 73 mg/dL (>or=50); Potassium 4.1 mmol/L (3.5-5.1); Sodium 143 mmol/L (136-145); TSH 0.34 uIU/mL (0.36-3.74); Total Protein 7.4 g/dL (6.4-8.2); Triglyceride 66 mg/dL (<150)
[2024-08-07 23:17] LABS: Hemoglobin A1C 6.1 % (<5.7)
[2024-08-08 22:15] LABS: T4, Free 1.8 ng/dL (0.8-2.2)
== END 2024-08-07 15:33 | disposition home or self-care (01) ==
LOC: NCHCN 15:32
PROVIDERS: PCP Nurse Practitioner Family; Visit Provider Nurse Practitioner Family
DX: E03.9 Hypothyroidism, unspecified (principal); F41.9 Anxiety disorder, unspecified; E78.5 Hyperlipidemia, unspecified; Z13.1 Encounter for screening for diabetes mellitus; D64.9 Anemia, unspecified
CPT/HCPCS: 80053; 80061; 83036; 83540; 83550; 84439; 84443; 85025

== ENCOUNTER 2024-08-10 03:11 | Outpatient (CLI) | payer MEDICAID, SELFPAY ==
--- NOTE | 2024-08-10 11:00 | DI.MAMMO_ITS ---
Exam(s) MG MAMMO SCREENING 60 MIN DUR EXAM: MG MAMMO SCREENING 60 MIN DUR CLINICAL HISTORY: Screening, Z12.31, s/p rt mastectomy and recon for breast CA. TECHNIQUE: Craniocaudal and mediolateral oblique Full Field Digital Mammography views of the left br east with Computer Aided Diagnosis. COMPARISON: Comparison is made with prior examinations. FINDINGS: Mammography/Tomosynthesis: The patient is status post right mastectomy. Masses/Architectural Distortion: None seen. Microcalcifictions: No suspicious pleomorphic-type are seen. Skin Thickening/Nipple Retraction: None. IMPRESSION: 1. No evidence of malignancy is noted. 2. Unless there is more urgent need, follow-up screening mammography is recommended, as per [employer] guidelines. 3. The findings were discussed with the patient on the date of the examination. BI-RADS Category 1 - Negative Breast Density - Category B - Scattered areas of fibroglandular density Breast density Category C or D implies that the patient has dense breast tissue. Dense breast tissue can make it harder to find cancer on a mammogram. Dense breast tissue is also associated with an incr eased risk of breast cancer. This information about the result of the mammogram report was provided to the patient to raise their awareness. Use this report when you speak with the patient about their risks for breast cancer, which includes their family history. At that time, you may recommend additional screening tests (Ultrasoun d or MRI) as these tests may add significant information. A negative radiographic report should not delay biopsy if a dominant or clinically suspicious mass is present. Up to ten percent of cancers are not identified on mammography. A negative report may reinforce clinical impression. Adenosis and dense breasts may obscure an underlying neoplasm. False positive reports average 6 to 10%. Patient will receive a letter notifying them of these results.
== END 2024-08-10 03:31 ==
LOC: DI 03:11
PROVIDERS: PCP Nurse Practitioner Family; Visit Provider Radiology Radiation Oncology
DX: Z12.31 Encounter for screening mammogram for malignant neoplasm of breast (principal); R92.323 Mammographic fibroglandular density, bilateral breasts
CPT/HCPCS: 77063; 77067

== ENCOUNTER 2024-09-08 00:52 | Outpatient (CLI) | payer MEDICAID, SELFPAY ==
--- NOTE | 2024-09-08 | DI.NM_ITS ---
Exam(s) NM BONE SCAN WHOLE BODY GRP EXAM: NM BONE SCAN WHOLE BODY GRP CLINICAL HISTORY: Rib pain on rt side, R07.81, s/p radiotherapy, Z92.3; h/o breast CA;. TECHNIQUE: Injected Dose: 26.8 mCi Tc-99m MDP Delayed Images: 2-3 hours. COMPARISON: CR CHEST 2 VIEWS PA,LAT from 06/21/2015 CR,XR XR PORTABLE CHEST AP from 05/23/2021 CR XR THORACIC SPINE COMPLETE from 07/31/2021 MR MR BRAIN WO/W from 02/25/2024 FINDINGS: Symmetric axial uptake. Bilateral renal excretion is identified. No focal area of intense suspicious uptake is seen. Mildly increased activity in the mid thoracic spine likely corresponding to osteophyt es seen on plain films. It mildly increased activity in the skull, consistent with hyperostosis fron talis interna. No abnormal rib or shoulder activity. IMPRESSION: No areas of suspicious skeletal uptake. DATA REPOSITORY:
== END 2024-09-08 01:12 ==
LOC: DI 00:52
PROVIDERS: PCP Nurse Practitioner Family; Visit Provider Radiology Radiation Oncology
DX: R07.81 Pleurodynia (principal); M85.2 Hyperostosis of skull
CPT/HCPCS: 78306

== ENCOUNTER 2024-10-27 02:22 | Outpatient (CLI) | payer MEDICAID, SELFPAY ==
[2024-10-27 09:56] LABS: Abs Immature Grans 0.01 10^3/uL (0.0-0.06); Absolute Basophil Count 0.03 10^3/uL (0.0-0.2); Absolute Lymphocyte Count 1.26 10^3/uL (1.2-3.4); Absolute Neutrophil Count 3.15 10^3/uL (1.2-6.7); Basophils % 0.6 %; HCT 39.8 % (36.0-46.0); HGB 12.5 g/dL (11.2-15.7); Immature Grans % 0.2 %; MCH 24.9 pg (27.0-33.0); MCHC 31.4 % (32.0-36.0); MCV 79 fL (80-95); Monocytes % 7.9 %; Neutrophils % 62.3 %; Platelet Count 215 10^3/uL (130-400); RBC 5.02 10^6/uL (3.93-5.22); RDW 16.5 % (11.7-14.6); RDW-SD 47.5 fL; WBC 5.05 10^3/uL (4.4-10.8)
[2024-10-27 10:09] LABS: ALT 25 U/L (14-59); AST 15 U/L (15-37); Albumin 3.5 g/dL (3.4-5.0); Alkaline Phosphatase 98 U/L (46-116); Anion Gap 6.9 mmol/L (3-11); BUN 14 mg/dL (7-18); Bilirubin, Total 0.4 mg/dL (0.2-1.0); CO2 26.1 mmol/L (21.0-32.0); CREATININE 0.9 mg/dL (0.55-1.02); Chloride 105 mmol/L (98-107); Estimated GFR 71.39 (mL/min/1.73m2); Glucose 118 mg/dL (74-106); Potassium 4.3 mmol/L (3.5-5.1); Sodium 138 mmol/L (136-145); Total Protein 6.9 g/dL (6.4-8.2)
[2024-10-27 10:19] LABS: TSH 0.63 uIU/mL (0.36-3.74)
== END 2024-10-27 02:23 | disposition home or self-care (01) ==
PROVIDERS: PCP Nurse Practitioner Family; Visit Provider Nurse Practitioner Family
DX: C50.919 Malignant neoplasm of unspecified site of unspecified female breast (principal); Z17.31 Human epidermal growth factor receptor 2 positive status; C50.911 Malignant neoplasm of unspecified site of right female breast; Z51.11 Encounter for antineoplastic chemotherapy
CPT/HCPCS: 36415; 80053; 84439; 84443; 85025

== ENCOUNTER 2025-01-15 09:33 | Emergency (ER) | payer MEDICAID, SELFPAY ==
[2025-01-15] VITALS (38 sets, daily range): BP systolic 105–158; BP diastolic 68–108; PULSE 53–82; RESP 10–33; TEMP 36.8; O2SAT 96–100
--- NOTE | 2025-01-15 09:30 | RT.EKG_ITS ---
APPROVED REPORT Exam: Resting ECG Reason for Exam: EDEMA Patient Location: E HR:71 bpm ECG Measurements Heart Rate 71 AXIS NE [id number] P [id number] QRSd 81 QRS -24 QT 408 T 22 QTc 444 Conclusion Atrial fibrillation...? atrial activity
[2025-01-15 10:07] LABS: Abs Immature Grans 0.01 10^3/uL (0.0-0.06); HCT 38.0 % (36.0-46.0); HGB 12.3 g/dL (11.2-15.7); Immature Grans % 0.2 %; MCH 25.7 pg (27.0-33.0); MCHC 32.4 % (32.0-36.0); MCV 79 fL (80-95); MPV 11.8 fL (8.0-11.0); Platelet Count 179 10^3/uL (130-400); RBC 4.79 10^6/uL (3.93-5.22); RDW 16.0 % (11.7-14.6); RDW-SD 46.3 fL; WBC 4.39 10^3/uL (4.4-10.8)
[2025-01-15 10:41] LABS: D-Dimer 251 ng/mlFEU (<500)
[2025-01-15 10:42] LABS: ALT 29 U/L (14-59); AST 25 U/L (15-37); Albumin 3.7 g/dL (3.4-5.0); Alkaline Phosphatase 91 U/L (46-116); Anion Gap 11.0 mmol/L (3-11); BUN 14 mg/dL (7-18); Bilirubin, Total 0.5 mg/dL (0.2-1.0); CO2 25.0 mmol/L (21.0-32.0); Calcium 9.1 mg/dL (8.5-10.1); Chloride 106 mmol/L (98-107); Estimated GFR 96.52 (mL/min/1.73m2); Glucose 114 mg/dL (74-106); Magnesium 1.9 mg/dL (1.8-2.4); Potassium 4.3 mmol/L (3.5-5.1); Sodium 142 mmol/L (136-145); TSH (W/Ref FT4) 1.36 uIU/mL (0.36-3.74); Total Protein 7.0 g/dL (6.4-8.2); Troponin I 24 ng/L (<or=51)
[2025-01-15 10:43] LABS: C-Reactive Protein < 0.50 mg/dL (<or=0.5)
[2025-01-15] MEDS: Normal Saline Flush 10 ML SYR IVP (11:28)
[2025-01-15] MEDS: Normal Saline - Diluent 50 ML VIAL IJ (11:28)
[2025-01-15] MEDS: Omnipaque 350 MG/ML 100 ML BTL IJ (11:28)
--- NOTE | 2025-01-15 11:35 | DI.CT_ITS ---
Exam(s) CT NECK CHEST W CT CERVICAL SPINE RECONS EXAM: CT NECK CHEST W CLINICAL HISTORY: lymphedema; chest and neck TECHNIQUE: Imaging Protocol: Axial computed tomography images with coronal and sagittal reformatted images were created and reviewed. Computer aided detection (CAD) was utilized. CONTRAST MATERIAL: Intravenous: Omnipaque 350 Contrast volume:100 ml Oral: no COMPARISON: CR,XR XR PORTABLE CHEST AP from 05/23/2021 CR XR THORACIC SPINE COMPLETE from 07/31/2021 MR MR BRAIN WO/W from 02/25/2024 NM NM BONE SCAN WHOLE BODY GRP from 09/08/[address] CERVICAL SPINE RECONS from 01/15/2025 FINDINGS: Neck: Parotids/submandibular: Unremarkable. Thyroid gland: Status post thyroidectomy. Surgical clips in the thyroid bed. Asymmetry of thyroid collateral age may be postsurgical. Lymphadenopathy: No enlarged lymph nodes.. Carotids/Jugular: Within normal limits. No significant atherosclerotic changes. Soft tissues: The floor the mouth is unremarkable. The epiglottis and vocal cords are within normal limits. No visible edema in the subcutaneous fat. Bones: No fracture. No lytic or blastic lesions. There degenerative disc changes at C4-5 through C6-7 causing neural foraminal narrowing. No significant central canal stenosis. Visualized portions of the brain: Enhancing mass in the right cerebellum measuring 1.8 by 3.1 x 1.8 cm. Chest: Tracheobronchial tree: Patent where visualized. Mediastinum and Kiana: No dominant adenopathy or fluid collection. Pulmonary parenchyma: There is anterior pleural based scarring in the right middle lobe presumably related to prior radiation therapy. There is scarring at the right lung apex. No consolidation or dominant measurable mass. Pleura: No effusion or pneumothorax. Heart/Aorta: Thoracic aorta non-dilated. No significant atherosclerotic changes. The heart is mildly dilated. No coronary artery calcifications are seen. Pulmonary arteries: No evidence of emboli. The pulmonary arteries are prominent. Bones: No fracture. No lytic or blastic lesions. Soft tissues: Status post right mastectomy. Saline right breast implant appears intact. Visualized portions of the ABDOMEN: Streak artifact related to patient arm positioning. Liver: Normal density. No measurable mass. Gallbladder and biliary tract: Status post cholecystectomy. No biliary dilation. Pancreas: Normal density, no abnormal calcifications or inflammatory process. Spleen: Normal. Adrenal glands: No masses seen. IMPRESSION: 3 centimeter enhancing mass in the right inferior cerebellum. MRI recommended for further evaluation. Status post thyroidectomy. No evidence of adenopathy. No visible swelling or mass. Status post right mastectomy. Right apical scarring. Postradiation changes in the anterior right lung. Findings were called to Dr. Ames of the emergency department. RADIATION DOSE DELIVERED: 750.74mGy.cm Total DLP DATA REPOSITORY: All CT scans at this facility are submitted to the National Radiology Data Registry (NRDR) Dose Index Registry (DIR) with the [employer] (A[employer]). RADIATION OPTIMIZATION: All CT scans at this facility use at least one of these dose optimization techniques: automated exposure control; mA and/or kV adjustment per patient size (includes targeted exams where dose is matched to clinical indication); or iterative reconstruction.
--- NOTE | 2025-01-15 12:00 | DI.MRI_ITS ---
Exam(s) MR BRAIN WO/W EXAM: MR BRAIN WO/W CLINICAL HISTORY: mass seen on CT neck. TECHNIQUE: Multiplanar multisequence MRI of the brain was performed. CONTRAST MATERIAL: IV Contrast: 19 ML of Dotarem contrast administered. COMPARISON: MR MR BRAIN WO/W from 02/25/2024 FINDINGS: VENTRICLES AND EXTRA AXIAL SPACES: Normal in size and morphology for the patient's age. HEMORRHAGE: None. CEREBRAL PARENCHYMA: No focus of restricted diffusion to suggest acute infarct. No space-occupying lesion identified. BRAINSTEM/CEREBELLUM: New 2.2 x 3.8 x 2.0 cm enhancing mass in the inferior right cerebellar hemisphere, extending to the midline. No significant midline shift. CALVARIUM: Normal. VISUALIZED PARANASAL SINUSES/MASTOIDS: Mucosal thickening of the ethmoid sinuses. Orbits: Unremarkable. Pituitary: Not enlarged. Vasculature: Normal flow voids. IMPRESSION: 3.8 cm enhancing mass in the right cerebellar hemisphere suspicious for metastatic disease. No other lesions are seen. DATA REPOSITORY:
--- NOTE | 2025-01-15 12:15 | W.ED.GENAD ---
Discharge Plan Disposition Patient Disposition: Home Condition: Stable Discharge Details Clinical Impression: Brain mass Primary Care Provider: Tika Rock ED Provider: Christian Kay Home Meds and New Rx's Prescriptions: Continued lorazepam 1 MG tablet 1 mg PO PRN PRN (Reason: Anxiety) omeprazole 20 mg capsule,delayed release(DR/EC) 20 mg PO DAILY acetaminophen [Mapap Extra Strength] 500 MG tablet 500 mg PO Q8H PRN fluticasone propionate 50 mcg/actuation spray,suspension 1 spray INTRANASAL BID Patient Comments: USE ONE SPRAY INTO BOTH NOSTRILS TWO TIMES A DAY. USE AFTER NASAL SALINE levothyroxine 100 mcg tablet 100 mcg PO QAM Patient Comments: TAKE ONE TABLET BY MOUTH EVERY MORNING 30 MIN. PRIOR TO EATING No Action ondansetron 8 mg tablet,disintegrating 8 mg PO Q8H PRN Patient Comments: DISSOLVE ONE TABLET ON THE TONGUE EVERY 8 HOURS NEEDED FOR NAUSEA diphenoxylate-atropine 2.5-0.025 mg tablet 1 tab PO QID PRN Patient Comments: TAKE ONE TABLET BY MOUTH FOUR TIMES A DAY NEEDED FOR DIARRHEA prochlorperazine maleate 10 mg tablet 10 mg PO Q6H PRN Patient Comments: TAKE ONE TABLET BY MOUTH EVERY 6 HOURS NEEDED FOR NAUSEA Eliquis 5 mg Tablet 5 mg PO BID Qty: 60 0RF Prevalite 4 gram Powder In Packet 1 packet PO 1000,1900 Qty: 60 0RF metoprolol tartrate 25 mg Tablet 12.5 mg PO BID Qty: 30 0RF L. Acidophilus,Casei,Rhamnosus [Bio-K Plus] 1 cap PO DAILY Qty: 30 0RF vancomycin 125 mg Capsule 125 mg PO Q6H Qty: 17 0RF fluoxetine 10 mg capsule 10 mg PO DAILY Patient Comments: TAKE ONE CAPSULE BY MOUTH EVERY DAY potassium chloride 10 mEq tablet extended release 10 meq PO DAILY Patient Comments: TAKE ONE TABLET BY MOUTH EVERY DAY dexamethasone 2 mg tablet 2 mg PO BID Patient Comments: TAKE ONE TABLET BY MOUTH TWICE A DAY WITH MEALS pyridoxine (vitamin B6) 50 mg capsule 50 mg PO DAILY anastrozole 1 mg tablet 1 mg PO DAILY Patient Comments: TAKE ONE TABLET BY MOUTH EVERY DAY Discharge Instructions Instructions: Brain Tumor, Adult (DC) Additional Instructions: You were seen in the emergency department for your left arm radicular pain and neck stiffness, this is likely due to degenerative disc disease of C4-C7, there is no cord compression happening, heat packs to the neck can help with this, incidentally we did find a right cerebellar brain lesion to possible that this is a return of your breast cancer, we set up a tumor marker test and I spoke [place] [facility]. The neurosurgery team will see you next week and we are providing a referral to radiation oncology for you. There is no emergent need for transfer, please take Tylenol for your neck pain as needed, use your lorazepam as a muscle relaxer, please return for any signs of neurovascular compromise, visual changes, severe sudden onset headache, slurred speech or altered mentation or any other emergent concern. Referrals: Tika Rock [Primary Care Provider, Medicine] HPI General Date/Time Provider Initiated Documentation: 01/15/25 09:48. HPI Narrative: 64 year-old female presents to ED today by POV/ambulating with a chief complaint of new onset neck pain, L arm numbness, acute on chronic with onset worsening over the past several days starting on the . Quality described as stiff neck, intermittent numbness to L arm, difficulty with ADLs with that arm, no radiation to chest pain, shortness of breath, nausea/vomiting, cough, fever, hemoptysis, visual changes, slurred speech, altered mentation. Severity is described as moderate to severe. Palliating factors include tried her commpression shirt and self massage without relief. Provoking factors include nothing specific. Events leading up to the incident/Associated Symptoms: Patient recently did stop anastrozole which helped with her chronic fluid retention of the chest and L arm. Patient is anticoagulated on Eliquis. Related Data Home Medications ?Medication ?Instructions ?Recorded ?Confirmed acetaminophen 500 mg tablet (Mapap 500 mg PO Q8H PRN 11/30/14 01/15/25 Extra Strength) lorazepam 1 mg tablet 1 mg PO PRN PRN Anxiety 11/30/14 01/15/25 omeprazole 20 mg capsule,delayed 20 mg PO DAILY 01/08/22 01/15/25 release diphenoxylate-atropine 2.5 1 tab PO QID PRN 02/05/23 01/15/25 mg-0.025 mg tablet Held on 01/15/25. Instructions: Pt Stopped/Never Started ondansetron 8 mg disintegrating 8 mg PO Q8H PRN 02/05/23 01/15/25 tablet Held on 01/15/25. Instructions: Pt Stopped/Never Started prochlorperazine maleate 10 mg 10 mg PO Q6H PRN 02/05/23 01/15/25 tablet Held on 01/15/25. Instructions: Pt Stopped/Never Started L. Acidophilus,Casei,Rhamnosus 1 cap PO DAILY #30 caps 02/10/23 01/15/25 [Bio-K PLUS] Held on 01/15/25. Instructions: Adverse Reaction apixaban 5 mg tablet (Eliquis) 5 mg PO BID #60 tabs 02/10/23 01/15/25 Held on 01/15/25. Instructions: Pt Stopped/Never Started cholestyramine-aspartame 4 gram 1 packet PO 1000,1900 #60 ea 02/10/23 01/15/25 oral powder for susp in a packet (Prevalite) Held on 01/15/25. Instructions: Pt Stopped/Never Started metoprolol tartrate 25 mg tablet 12.5 mg (1/2 x 25 mg) PO BID #30 02/10/23 01/15/25 Held on 01/15/25. tabs Instructions: Pt Stopped/Never Started vancomycin 125 mg capsule 125 mg PO Q6H #17 caps 02/10/23 01/15/25 Held on 01/15/25. Instructions: Pt Stopped/Never Started dexamethasone 2 mg tablet 2 mg PO BID 07/31/23 01/15/25 Held on 01/15/25. Instructions: Pt Stopped/Never Started fluoxetine 10 mg capsule 10 mg PO DAILY 07/31/23 01/15/25 Held on 01/15/25. Instructions: Pt Stopped/Never Started potassium chloride 10 mEq 10 meq PO DAILY 07/31/23 01/15/25 tablet,extended release Held on 01/15/25. Instructions: Pt Stopped/Never Started pyridoxine (vitamin B6) 50 mg 50 mg PO DAILY 07/31/23 01/15/25 capsule Held on 01/15/25. Instructions: Pt Stopped/Never Started anastrozole 1 mg tablet 1 mg PO DAILY 01/15/25 01/15/25 Held on 01/15/25. Instructions: Pt Stopped/Never Started fluticasone propionate 50 1 spray intranasal BID 01/15/25 01/15/25 mcg/actuation nasal spray,suspension levothyroxine 100 mcg tablet 100 mcg PO QAM 01/15/25 01/15/25 Previous Rx's ?Medication ?Instructions ?Recorded L. Acidophilus,Casei,Rhamnosus 1 cap PO DAILY #30 caps 02/10/23 [Bio-K PLUS] Held on 01/15/25. Instructions: Adverse Reaction apixaban 5 mg tablet (Eliquis) 5 mg PO BID #60 tabs 02/10/23 Held on 01/15/25. Instructions: Pt Stopped/Never Started cholestyramine-aspartame 4 gram 1 packet PO 1000,1900 #60 ea 02/10/23 oral powder for susp in a packet (Prevalite) Held on 01/15/25. Instructions: Pt Stopped/Never Started metoprolol tartrate 25 mg tablet 12.5 mg (1/2 x 25 mg) PO BID #30 02/10/23 Held on 01/15/25. tabs Instructions: Pt Stopped/Never Started vancomycin 125 mg capsule 125 mg PO Q6H #17 caps 02/10/23 Held on 01/15/25. Instructions: Pt Stopped/Never Started Allergies Allergy/AdvReac Type Severity Reaction Status Date / Time etodolac (From Lodine) Allergy swelling Unverified 02/05/23 10:58 of hands Sulfa (Sulfonamide Allergy rash, Unverified 02/05/23 10:58 Antibiotics) hand/arm swelling latex AdvReac Intermediate Hives Unverified 02/05/23 10:58 ciprofloxacin (From Cipro) AdvReac N/V Unverified 02/05/23 10:58 ciprofloxacin HCl (From AdvReac N/V Unverified 02/05/23 10:58 Cipro) General Stated Complaint: GenMedical FISH: 2 Review of Systems All systems reviewed & are unremarkable except as noted in HPI and below Exam Narrative Exam Narrative: GENERAL APPEARANCE: Well-nourished, non-toxic, awake and alert, atraumatic, no acute distress. SKIN: Warm, pink, dry, intact, without rashes/lesions/ulcerations. HEAD: Normocephalic, atraumatic, normal hair distribution for gender/age. EYES: Normal conjunctiva, no exudates on lids/lashes. ENT: Nares patent, no circumoral cyanosis, no facial swelling NECK: Supple, trachea midline, painless cervical ROM, no midline vertebral tenderness/crepitus/step-offs. LUNGS/CHEST: Lungs CTA bilaterally- no rhonchi/rales/wheezes diffusely, non-labored respirations, normal A/P diameter, symmetrical expansion, no chest wall deformity, s/p R mastectomy, no subcutaneous emphysema throughout chest wall HEART (CV/PV): Irregular rate and rhythm without murmur in known atrial fibrillation, L radial pulse 2+, no peripheral edema, no JVD. ABDOMEN: Soft, non-distended, no guarding, no tenderness. MSK: Normal ROM, no swelling/deformity to bilateral UEs or LEs, moving all extremities- L UE has mild weakness 4+/5, no cyanosis, spine midline without tenderness, normal curvature. NEURO: Mental Status AAOx4 - alert to person, place, time, events No facial droop, no forehead involvement. Motor: No focal weakness - strength 5/5 in bilateral UEs and LEs, proximal and distal, symmetric. Sensory: sensation intact to light touch globally. Gait normal: patient ambulated without ataxia into ED room. PSYCH: euthymic, cooperative, pleasant, appropriate speech Course Vital Signs Vital signs: Vital Signs Temperature 36.8 C 01/15/25 09:36 Pulse 67 01/15/25 09:36 Respiratory Rate 16 01/15/25 09:36 Blood Pressure 141/102 H 01/15/25 09:36 Pulse Oximetry 99 01/15/25 09:36 Temperature 36.8 C 01/15/25 10:07 Temperature Source Oral 01/15/25 10:07 Pulse 70 01/15/25 10:31 Pulse 67 01/15/25 10:31 Respiratory Rate 17 01/15/25 10:31 Respiratory Effort Normal 01/15/25 10:07 Respiratory Depth Normal 01/15/25 10:07 Respiratory Pattern Normal 01/15/25 10:07 Blood Pressure 124/73 01/15/25 10:31 Blood Pressure Mean 91 01/15/25 10:31 Pulse Oximetry 99 01/15/25 10:31 Oxygen Delivery Method Room Air 01/15/25 10:07 Oxygen Flow Rate 0 01/15/25 10:07 Pain Level 6 01/15/25 10:07 Lab/Test Results Lab/Test Results: Laboratory Tests Range/Units 01/15/25 01/15/25 01/15/25 09:54 09:54 09:54 WBC (4.4-10.8) 10^3/uL 4.39 L RBC (3.93-5.22) 10^6/uL 4.79 Hgb (11.2-15.7) g/dL 12.3 Hct (36.0-46.0) % 38.0 MCV (80-95) fL 79 L MCH (27.0-33.0) pg 25.7 L MCHC (32.0-36.0) % 32.4 RDW (11.7-14.6) % 16.0 H Plt Count (130-400) 10^3/uL 179 MPV (8.0-11.0) fL 11.8 H Immature Gran % % 0.2 Neutrophils % % 60.9 Lymphocytes % % 24.8 Monocytes % % 9.8 Eosinophils % % 3.6 Basophils % % 0.7 Nucleated RBC % (0.0-0.3) % 0.0 Absolute Neutrophils (1.2-6.7) 10^3/uL 2.67 Absolute Lymphocytes (1.2-3.4) 10^3/uL 1.09 L Absolute Monocytes (0.1-0.8) 10^3/uL 0.43 Absolute Eosinophils (0.0-0.7) 10^3/uL 0.16 Absolute Basophils (0.0-0.2) 10^3/uL 0.03 D-Dimer (<500) ng/mlFEU 251 Sodium (136-145) mmol/L 142 Potassium (3.5-5.1) mmol/L 4.3 Chloride (98-107) mmol/L 106 Carbon Dioxide (21.0-32.0) mmol/L 25.0 Anion Gap (3-11) mmol/L 11.0 BUN (7-18) mg/dL 14 Creatinine (0.55-1.02) mg/dL 0.7 Est GFR (CKD-EPI 2020) (mL/min/1.73m2) 96.52 Glucose (74-106) mg/dL 114 H Calcium (8.5-10.1) mg/dL 9.1 Magnesium (1.8-2.4) mg/dL 1.9 Cancelled Total Bilirubin (0.2-1.0) mg/dL 0.5 AST (15-37) U/L 25 ALT (14-59) U/L 29 Alkaline Phosphatase (46-116) U/L 91 Troponin I (<or=51) ng/L 24 Cancelled C-Reactive Protein (<or=0.5) mg/dL < 0.50 Total Protein (6.4-8.2) g/dL 7.0 Albumin (3.4-5.0) g/dL 3.7 TSH (0.36-3.74) uIU/mL 1.36 Medical Decision Making This dictation utilizes [id number] dictation software and may contain unedited grammatical errors. 64 year-old female presents to ED today by POV/ambulating with a chief complaint of new onset neck pain, L arm numbness, acute on chronic with onset worsening over the past several days starting on the 6th. Quality described as stiff neck, intermittent numbness to L arm, difficulty with ADLs with that arm, no radiation to chest pain, shortness of breath, nausea/vomiting, cough, fever, hemoptysis, visual changes, slurred speech, altered mentation. Severity is described as moderate to severe. Palliating factors include tried her commpression shirt and self massage without relief. Provoking factors include nothing specific. Events leading up to the incident/Associated Symptoms: Patient recently did stop anastrozole which helped with her chronic fluid retention of the chest and L arm. Patients' medical history: Breast and thyroid cancer not on current chemotherapy, GERD, hyperlipidemia, prediabetes, history of electrolyte abnormalities, atrial fibrillation. Family and social history: Denies EtOH or IVDU, normal diet, no recent travel/sick contacts, lives independently. Pertinent exam findings / vital signs include no overt lymphedema of chest wall or L arm, neuro intact, benign cardiopulmonary exam with known atrial fibrillation, no midline cervical vertebral tenderness/crepitus/stepoffs, no nuchal rigidity, nontoxic and afebrile, vision intact. Differential / pathologies of concern include cervical radiculopathy, lymphedema, malignancy, ACS, PE, infection, muscle spasm. Diagnostic studies of: -CBC, CMP, D-dimer, globin, troponin, TSH, CRP, EKG, CT neck chest with contrast, CT cervical spine recons, MRI brain without/with. - CBC shows mild leukopenia 4.39 WBCs, no anemia or other abnormality - D-dimer negative - Troponin negative - Magnesium within normal limits - CMP unremarkable - CRP negative - TSH within normal limits - EKG shows atrial fibrillation with a rate of 71, some lateral ST depressions without reciprocal change, no T wave abnormalities otherwise normal - CT of the neck and chest shows degenerative disc disease throughout the cervical spine, no abnormality of the lung, no major retained edema chest wall, did catch a 3 cm enhancing mass in the right inferior cerebellum which MRI was performed on - MRI shows R cerebellar lesion without vasogenic edema- would not cause her L sided radicular symptoms Interventions of: -Paged [facility] [place] @ [phone] - spoke with Dr. Mejias @ [phone]- no urgent need for in-patient treatment- will send a CA15-3 marker as requested, defers to neurosurgery. Spoke to Dr. Chowdary of Neurosurgery at [phone]- no urgent need for transfer, they will see her next week in follow-up. Needs a referral to [facility] [place].. ED Course/Assessment/Plan: 64-year-old female presents with neck stiffness and left upper extremity radicular symptoms in setting of history of breast and thyroid cancer. 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 Findings not consistent with myelopathy, neurovascular compromise, symptomatic brain lesion. Disposition of Brain Mass. Patient verbalized understanding of the plan and return to ED criteria and engaged in shared decision making. Medical Records Medical records reviewed: Yes I reviewed the patient's medical records. Imaging Data Radiologic Study: Attestation: I personally reviewed and interpreted this imaging study as follows: Imaging: CT Scan Radiologist's impression: Exam(s) CT NECK CHEST W CT CERVICAL SPINE RECONS EXAM: CT NECK CHEST W CLINICAL HISTORY: lymphedema; chest and neck TECHNIQUE: Imaging Protocol: Axial computed tomography images with coronal and sagittal reformatted images were created and reviewed. Computer aided detection (CAD) was utilized. CONTRAST MATERIAL: Intravenous: Omnipaque 350 Contrast volume:100 ml Oral: no COMPARISON: CR,XR XR PORTABLE CHEST AP from 05/23/2021 CR XR THORACIC SPINE COMPLETE from 07/31/2021 MR MR BRAIN WO/W from 02/25/2024 NM NM BONE SCAN WHOLE BODY GRP from 09/08/[address] CERVICAL SPINE RECONS from 01/15/2025 FINDINGS: Neck: Parotids/submandibular: Unremarkable. Thyroid gland: Status post thyroidectomy. Surgical clips in the thyroid bed. Asymmetry of thyroid collateral age may be postsurgical. Lymphadenopathy: No enlarged lymph nodes.. Carotids/Jugular: Within normal limits. No significant atherosclerotic changes. Soft tissues: The floor the mouth is unremarkable. The epiglottis and vocal cords are within normal limits. No visible edema in the subcutaneous fat. Bones: No fracture. No lytic or blastic lesions. There degenerative disc changes at C4-5 through C6-7 causing neural foraminal narrowing. No significant central canal stenosis. Visualized portions of the brain: Enhancing mass in the right cerebellum measuring 1.8 by 3.1 x 1.8 cm. Chest: Tracheobronchial tree: Patent where visualized. Mediastinum and Kiana: No dominant adenopathy or fluid collection. Pulmonary parenchyma: There is anterior pleural based scarring in the right middle lobe presumably related to prior radiation therapy. There is scarring at the right lung apex. No consolidation or dominant measurable mass. Pleura: No effusion or pneumothorax. Heart/Aorta: Thoracic aorta non-dilated. No significant atherosclerotic changes. The heart is mildly dilated. No coronary artery calcifications are seen. Pulmonary arteries: No evidence of emboli. The pulmonary arteries are prominent. Bones: No fracture. No lytic or blastic lesions. Soft tissues: Status post right mastectomy. Saline right breast implant appears intact. Visualized portions of the ABDOMEN: Streak artifact related to patient arm positioning. Liver: Normal density. No measurable mass. Gallbladder and biliary tract: Status post cholecystectomy. No biliary dilation. Pancreas: Normal density, no abnormal calcifications or inflammatory process. Spleen: Normal. Adrenal glands: No masses seen. IMPRESSION: 3 centimeter enhancing mass in the right inferior cerebellum. MRI recommended for further evaluation. Status post thyroidectomy. No evidence of adenopathy. No visible swelling or mass. Status post right mastectomy. Right apical scarring. Postradiation changes in the anterior right lung. Findings were called to Dr. Ames of the emergency department. Radiologic Study #2: Attestation: I personally reviewed and interpreted this imaging study as follows: Imaging: MRI Radiologist's impression: EXAM: MR BRAIN WO/W CLINICAL HISTORY: mass seen on CT neck. TECHNIQUE: Multiplanar multisequence MRI of the brain was performed. CONTRAST MATERIAL: IV Contrast: 19 ML of Dotarem contrast administered. COMPARISON: MR MR BRAIN WO/W from 02/25/2024 FINDINGS: VENTRICLES AND EXTRA AXIAL SPACES: Normal in size and morphology for the patient's age. HEMORRHAGE: None. CEREBRAL PARENCHYMA: No focus of restricted diffusion to suggest acute infarct. No space-occupying lesion identified. BRAINSTEM/CEREBELLUM: New 2.2 x 3.8 x 2.0 cm enhancing mass in the inferior right cerebellar hemisphere, extending to the midline. No significant midline shift. CALVARIUM: Normal. VISUALIZED PARANASAL SINUSES/MASTOIDS: Mucosal thickening of the ethmoid sinuses. Orbits: Unremarkable. Pituitary: Not enlarged. Vasculature: Normal flow voids. IMPRESSION: 3.8 cm enhancing mass in the right cerebellar hemisphere suspicious for metastatic disease. No other lesions are seen. Lab Data Lab results reviewed: Yes I reviewed the patient's lab results. Labs: Laboratory Tests Range/Units 01/15/25 01/15/25 01/15/25 09:54 09:54 09:54 WBC (4.4-10.8) 10^3/uL 4.39 L RBC (3.93-5.22) 10^6/uL 4.79 Hgb (11.2-15.7) g/dL 12.3 Hct (36.0-46.0) % 38.0 MCV (80-95) fL 79 L MCH (27.0-33.0) pg 25.7 L MCHC (32.0-36.0) % 32.4 RDW (11.7-14.6) % 16.0 H Plt Count (130-400) 10^3/uL 179 MPV (8.0-11.0) fL 11.8 H Immature Gran % % 0.2 Neutrophils % % 60.9 Lymphocytes % % 24.8 Monocytes % % 9.8 Eosinophils % % 3.6 Basophils % % 0.7 Nucleated RBC % (0.0-0.3) % 0.0 Absolute Neutrophils (1.2-6.7) 10^3/uL 2.67 Absolute Lymphocytes (1.2-3.4) 10^3/uL 1.09 L Absolute Monocytes (0.1-0.8) 10^3/uL 0.43 Absolute Eosinophils (0.0-0.7) 10^3/uL 0.16 Absolute Basophils (0.0-0.2) 10^3/uL 0.03 D-Dimer (<500) ng/mlFEU 251 Sodium (136-145) mmol/L 142 Potassium (3.5-5.1) mmol/L 4.3 Chloride (98-107) mmol/L 106 Carbon Dioxide (21.0-32.0) mmol/L 25.0 Anion Gap (3-11) mmol/L 11.0 BUN (7-18) mg/dL 14 Creatinine (0.55-1.02) mg/dL 0.7 Est GFR (CKD-EPI 2020) (mL/min/1.73m2) 96.52 Glucose (74-106) mg/dL 114 H Calcium (8.5-10.1) mg/dL 9.1 Magnesium (1.8-2.4) mg/dL 1.9 Cancelled Total Bilirubin (0.2-1.0) mg/dL 0.5 AST (15-37) U/L 25 ALT (14-59) U/L 29 Alkaline Phosphatase (46-116) U/L 91 Troponin I (<or=51) ng/L 24 Cancelled C-Reactive Protein (<or=0.5) mg/dL < 0.50 Total Protein (6.4-8.2) g/dL 7.0 Albumin (3.4-5.0) g/dL 3.7 TSH (0.36-3.74) uIU/mL 1.36 PFSH All Active Problems (Updated 01/15/25 @ 15:11 by ALEXANDER Millan) Brain mass (Acute) Colitis (Acute) Diarrhea (Acute) Acute hypokalemia (Acute) Acute dehydration (Acute) Discharge planning issues (Acute) DVT prophylaxis (Acute) Back pain (Acute) Atrial fibrillation (Chronic) C. 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 GERD (gastroesophageal reflux disease) Hyperlipidemia Prediabetes History of thyroid cancer BMI 35.0-35.9,adult Allergic rhinitis Pneumonia Malaise and fatigue Rosacea Acute cystitis Surgical History History of partial hysterectomy H/O colonoscopy (~08/10/22) H/O esophagogastroduodenoscopy History of laryngoplasty Hx of cholecystectomy Hx of thyroidectomy Social History Smoking/Tobacco Use Status: Former Tobacco Use Quit Date: 06/03/83 Smoking risk assessment performed?: Yes Alcohol Intake: current Alcohol Intake frequency: a few times a month Drug use: Rarely Substance use type: marijuana Details: marijuana inh t-2 Housing: apartment Do you feel safe at home: Yes Do you feel safe in your relationship?: Yes
[2025-01-15] MEDS: Gadoterate meglumine 20 ML VIAL 19 ML IVP (13:31)
[2025-01-15] MEDS: Normal Saline Flush 10 ML SYR IJ (13:33)
[2025-01-15] MEDS: Acetaminophen 500 MG TAB 1000 MG PO (15:22)
--- NOTE | 2025-01-16 07:21 | NUR.NOTE ---
Access chart to get more information for referral to [facility] [place]. Nursing Note:
[2025-01-18 10:08] LABS: Cancer Ag 15-3 26 U/mL (<30)
== END 2025-01-15 15:35 | disposition home or self-care (01) ==
PROVIDERS: Emergency Provider Physician Assistant; PCP Nurse Practitioner Family
DX: M54.2 Cervicalgia; G93.89 Other specified disorders of brain; R20.2 Paresthesia of skin; M50.321 Other cervical disc degeneration at C4-C5 level; M50.322 Other cervical disc degeneration at C5-C6 level; M50.323 Other cervical disc degeneration at C6-C7 level
CPT/HCPCS: 99284; 99285; 96374; 36415; 70491; 70553; 72125; 80053; 86300; 93005; 71260; 83735; 84443; 84484; 85025; 85379; 86140; 93010; J3490

== ENCOUNTER 2025-03-05 10:44 | Emergency (ER) | payer MEDICARE, MEDICAID, SELFPAY ==
[2025-03-05] VITALS (28 sets, daily range): BP systolic 157–205; BP diastolic 93–145; PULSE 89–106; RESP 18–43; TEMP 36.6; O2SAT 92–98
--- NOTE | 2025-03-05 10:45 | RT.EKG_ITS ---
APPROVED REPORT Exam: Resting ECG Reason for Exam: dyspnea Patient Location: E HR:94 bpm ECG Measurements Heart Rate 94 AXIS MI [id number] P [id number] QRSd 78 QRS -21 QT 344 T 18 QTc 430 Conclusion Atrial fibrillation...V-rate 69-114, irreg A-activity
--- NOTE | 2025-03-05 11:00 | DI.RAD_ITS ---
Exam(s) XR PORTABLE CHEST AP EXAM: XR PORTABLE CHEST AP CLINICAL HISTORY: SOB. TECHNIQUE: 2D digital imaging was performed. COMPARISON: CR,XR XR PORTABLE CHEST AP from 05/23/[address] NECK CHEST W from 01/15/2025 FINDINGS: Single AP portable view. Heart size is upper normal. The mediastinum is not widened. Right lung is clear. Will density over the lower right lung corresponds to a breast implant which is evident on recent CT scan of 01/15/2025. There is platelike atelectasis in left lung base. Slight blunting of left costophrenic angle is noted. This may indicate a small left pleural effusion. IMPRESSION: The left lung base findings which were not evident on prior chest x-ray of 05/23/2021 nor on the chest CT scan of 01/15/2025. Recommend nonportable PA and lateral views when clinically possible or CT scan. DATA REPOSITORY: RADIATION DOSE DELIVERED:
--- NOTE | 2025-03-05 11:00 | DI.CT_ITS ---
Exam(s) CT HEAD WO EXAM: CT HEAD WO CLINICAL HISTORY: Recent Brain surgery, Right cerebellar mass. TECHNIQUE: Imaging Protocol: Axial computed tomography images with coronal and sagittal reformatted images were created and reviewed COMPARISON: CT CT NECK CHEST W from 01/15/2025 MR MR BRAIN WO/W from 01/15/2025 FINDINGS: There has been interval recent right occipital craniotomy resection previously present enhancing mass in the inferior right cerebellar hemisphere. There is no fluid in the visualized paranasal sinuses. Right occipital craniotomy noted. There is some air within the inferior half of right cerebellar hemisphere, most probably postoperative. There is no evidence of intracranial hemorrhage, intra or extra-axial at this location or elsewhere in the brain. No new mass effect nor shift of midline structures. No new extra-axial fluid collections. IMPRESSION: Postoperative changes in the right posterior fossa/craniotomy which has taken place since the most recent imaging of 01/15/2025. No evidence of intracranial hemorrhage. Some air-gas is noted in the brain at the operative site in the posterior inferior aspect of the right cerebellar hemisphere Correlation with clinical findings recommended to determine if contrast infused MRI is warranted. Report called by myself to ER on 03/05/2025 at 12:24 p.m. RADIATION DOSE DELIVERED: 870.28mGy.cm Total DLP DATA REPOSITORY: All CT scans at this facility are submitted to the National Radiology Data Registry (NRDR) Dose Index Registry (DIR) with the [employer] (A[employer]). RADIATION OPTIMIZATION: All CT scans at this facility use at least one of these dose optimization techniques: automated exposure control; mA and/or kV adjustment per patient size (includes targeted exams where dose is matched to clinical indication); or iterative reconstruction.
--- NOTE | 2025-03-05 11:04 | W.ED.GENAD ---
Discharge Plan Disposition Patient Disposition: Home Condition: Stable Discharge Details Clinical Impression: Dyspnea, Pneumonia Primary Care Provider: [facility] ED Provider: Luli Monteiro Home Meds and New Rx's Prescriptions: New doxycycline hyclate 100 mg tablet 100 mg PO BID 10 Days Qty: 20 0RF No Action lorazepam 1 MG tablet 1 mg PO PRN PRN (Reason: Anxiety) acetaminophen [Mapap Extra Strength] 500 MG tablet 500 mg PO Q8H PRN ondansetron 8 mg tablet,disintegrating 8 mg PO Q8H PRN Patient Comments: DISSOLVE ONE TABLET ON THE TONGUE EVERY 8 HOURS NEEDED FOR NAUSEA Prevalite 4 gram Powder In Packet 1 packet PO 1000,1900 Qty: 60 0RF dexamethasone 2 mg tablet 2 mg PO BID Patient Comments: TAKE ONE TABLET BY MOUTH TWICE A DAY WITH MEALS fluticasone propionate 50 mcg/actuation spray,suspension 1 spray INTRANASAL BID Patient Comments: USE ONE SPRAY INTO BOTH NOSTRILS TWO TIMES A DAY. USE AFTER NASAL SALINE levothyroxine 100 mcg tablet 100 mcg PO QAM Patient Comments: TAKE ONE TABLET BY MOUTH EVERY MORNING 30 MIN. PRIOR TO EATING pantoprazole 40 mg tablet,delayed release (DR/EC) PO Patient Comments: TAKE ONE TABLET BY MOUTH EVERY DAY WHILE TAKING DEXAMETHASONE cyclobenzaprine 5 mg tablet Patient Comments: TAKE ONE TABLET BY MOUTH THREE TIMES A DAY NEEDED Discharge Instructions Instructions: Shortness of Breath, Adult ED, Pneumonia, Adult ED Additional Instructions: At this time no evidence of heart attack, does appear he may have an early pneumonia in the left lower lobe. You are given an antibiotic here in the emergency department and an albuterol inhaler. Please use the inhaler 1 to 2 puffs every 4-6 hours as needed for shortness of breath. At this time you have declined CT imaging of your chest to rule out blood clot or pulmonary embolism. Please follow-up with your PCP or the cancer center to discuss this further. Return sooner to the emergency department for any palpitations or racing heart rate, chest pain, worsening shortness of breath or coughing up blood. Follow up with oncologist/primary care provider in 3-5 days. Return to ED sooner if any worsening or concerns. Thank you for allowing us to care for you today. Referrals: [facility] [Provider Group] - 3 days Referral Note: ER follow up [facility] [Primary Care Provider, Medicine] - 5 days HPI General Mode of arrival: wheelchair. Date/Time Provider Initiated Documentation: 03/05/25 10:46. Limitations to Documentation: no limitations. Information obtained by: patient, RN notes reviewed and old records reviewed. HPI Narrative: 65-year-old female presents to the ER with a chief complaint of shortness of breath which began worsening approximately 5 days ago. Patient states that she is unable to lay flat due to the shortness of breath. She does have some increased work of breathing, no wheezing or rhonchi auscultated. She is satting 97% on room air. She does have a recent history of a brain lesion removal on January 28. This is mets from breast cancer. She states that she is getting the radiation set up currently. She states that few days ago her left side gave out and she had to crawl to her bedroom. Denies any productive cough, fever or chills, nausea vomiting diarrhea. She does have 1+ pitting edema noted to her bilateral lower extremities. Other past medical history include thyroid cancer thyroidectomy, hyperlipidemia, GERD. Related Data Home Medications ?Medication ?Instructions ?Recorded ?Confirmed acetaminophen 500 mg tablet (Mapap 500 mg PO Q8H PRN 11/30/14 03/05/25 Extra Strength) lorazepam 1 mg tablet 1 mg PO PRN PRN Anxiety 11/30/14 03/05/25 ondansetron 8 mg disintegrating 8 mg PO Q8H PRN 02/05/23 03/05/25 tablet cholestyramine-aspartame 4 gram 1 packet PO 1000,1900 #60 ea 02/10/23 03/05/25 oral powder for susp in a packet (Prevalite) dexamethasone 2 mg tablet 2 mg PO BID 07/31/23 03/05/25 fluticasone propionate 50 1 spray intranasal BID 01/15/25 03/05/25 mcg/actuation nasal spray,suspension levothyroxine 100 mcg tablet 100 mcg PO QAM 01/15/25 03/05/25 cyclobenzaprine 5 mg tablet mg 03/05/25 doxycycline hyclate 100 mg tablet 100 mg PO BID 10 days #20 tabs 03/05/25 pantoprazole 40 mg tablet,delayed mg PO 03/05/25 release Previous Rx's ?Medication ?Instructions ?Recorded cholestyramine-aspartame 4 gram 1 packet PO 1000,1900 #60 ea 02/10/23 oral powder for susp in a packet (Prevalite) doxycycline hyclate 100 mg tablet 100 mg PO BID 10 days #20 tabs 03/05/25 Allergies Allergy/AdvReac Type Severity Reaction Status Date / Time etodolac (From Lodine) Allergy swelling Unverified 03/05/25 10:55 of hands Sulfa (Sulfonamide Allergy rash, Unverified 03/05/25 10:55 Antibiotics) hand/arm swelling latex AdvReac Intermediate Hives Unverified 03/05/25 10:55 ciprofloxacin (From Cipro) AdvReac N/V Unverified 03/05/25 10:55 ciprofloxacin HCl (From AdvReac N/V Unverified 03/05/25 10:55 Cipro) General Stated Complaint: SOB FISH: 3 Review of Systems All systems reviewed & are unremarkable except as noted in HPI and below Cardiovascular Cardiovascular: Denies chest pain, Reports pedal edema, Reports dyspnea and Reports orthopnea Respiratory Respiratory: Reports dyspnea Exam Narrative Exam Narrative: Constitutional: Alert and oriented x3. Appears stated age. Normal body habitus. Head: Normocephalic, no trauma. Eyes: Pupils PERRL, Red reflex noted, EOM's intact. Eyelids symmetrical without lesions, discharge, or swelling. ENT: Bilateral TM's WNL, External ear normal to inspection, no mastoid TTP, swelling, or erythema, Nasal turbinates WNL, no nasal discharge. Chest: RRR, Normal S1, S2, distal pulses intact. Resp: Lungs clear to auscultation bilaterally, no wheezes, rales, or rhonchi. Does have increased work of breathing and prolonged expiratory phase. Abdomen: Soft, non-distended, Normoactive bowel sounds all 4 quads. Musculoskeletal: Unable to assess gait moves all 4 extremities without difficulty. Does have 1+ pitting edema noted to bilateral lower extremities. Does have kyphosis is wearing a soft collar neck brace. Skin: No suspicious rashes or lesions. Capillary refill less than 2 sec. Neurologic: Cranial nerves II-XII intact. Alert and oriented x 3. Motor: No deficits noted. Sensory: Intact bilaterally all 4 extremities. Hematologic/Lymphatic: No ecchymosis, no lymphadenopathy. Course Vital Signs Vital signs: Vital Signs Temperature 36.6 C 03/05/25 10:48 Pulse 104 H 03/05/25 10:48 Respiratory Rate 18 03/05/25 10:48 Blood Pressure 205/93 H 03/05/25 10:48 Pulse Oximetry 97 03/05/25 10:48 Temperature 36.6 C 03/05/25 10:48 Temperature Source Oral 03/05/25 10:48 Pulse 104 H 03/05/25 10:48 Respiratory Rate 18 03/05/25 10:48 Blood Pressure 205/93 H 03/05/25 10:48 Pulse Oximetry 97 03/05/25 10:48 Oxygen Delivery Method Room Air 03/05/25 10:48 Oxygen Flow Rate 0 03/05/25 10:48 Pain Level 8 03/05/25 10:48 Medical Decision Making 65-year-old female presents to the ER with a chief complaint of shortness of breath which began worsening approximately 5 days ago. Patient states that she is unable to lay flat due to the shortness of breath. She does have some increased work of breathing, no wheezing or rhonchi auscultated. She is satting 97% on room air. She does have a recent history of a brain lesion removal on January 28. This is mets from breast cancer. She states that she is getting the radiation set up currently. She states that few days ago her left side gave out and she had to crawl to her bedroom. Denies any productive cough, fever or chills, nausea vomiting diarrhea. She does have 1+ pitting edema noted to her bilateral lower extremities. Other past medical history include thyroid cancer thyroidectomy, hyperlipidemia, GERD. On exam she does have clear lung sounds to auscultation bilaterally, does appear she has increased work of breathing. She presents wearing a soft cervical collar which was removed upon arrival into the room. Workup ordered including CBC CMP serial troponins, proBNP chest x-ray, will consider CT imaging due to recent brain surgery. On reevaluation she reports that she is still feeling somewhat short of breath, will order CT chest to rule out PE. I am suspecting also possible early pneumonia. X-ray shows platelike atelectasis in the left lung base and blunting of the left costophrenic angle with a possible amount of left pleural fluid. This could be an early pneumonia. Patient states that she was prescribed home O2 which she has not been able to acquire yet through the [facility]. I did reach out to [facility] to see if they could assist this however since the paperwork has already been filled out through the [facility] they advised that she should follow-up with them or [facility] which should be open today. Patient has not required any oxygen while being here she is maintaining her oxygen saturation above 95% her entire stay. Patient did receive Tylenol for headache while here. Will give doxycycline and albuterol inhaler here in the emergency department and albuterol inhaler and instructed follow-up with [facility], PCP and [facility]. Patient is refusing the CT chest to rule out PE patient states that she feels better after albuterol inhaler and that she is too tired to continue with any further imaging. I did discuss the red flags including increased heart palpitations, chest pain hemoptysis or worsening shortness of breath she verbalized understanding. Oxygen is to be delivered at her home today at 3 PM. Patient discharged into the care of her family hypertensive, discussed tricked return instructions and red flags. This text was generated using [employer] system, please disregard any oddities of phrase or misspellings. Medical Records Medical records reviewed: Yes I reviewed the patient's medical records. Imaging Data Radiologic Study: Imaging: X-Ray Radiologist's impression: EXAM: XR PORTABLE CHEST AP CLINICAL HISTORY: SOB. TECHNIQUE: 2D digital imaging was performed. COMPARISON: CR,XR XR PORTABLE CHEST AP from 05/23/[address] NECK CHEST W from 01/15/2025 FINDINGS: Single AP portable view. Heart size is upper normal. The mediastinum is not widened. Right lung is clear. Will density over the lower right lung corresponds to a breast implant which is evident on recent CT scan of 01/15/2025. There is platelike atelectasis in left lung base. Slight blunting of left costophrenic angle is noted. This may indicate a small left pleural effusion. IMPRESSION: The left lung base findings which were not evident on prior chest x-ray of 05/23/2021 nor on the chest CT scan of 01/15/2025. Recommend nonportable PA and lateral views when clinically possible or CT scan. Lab Data Lab results reviewed: Yes I reviewed the patient's lab results. Labs: Laboratory Tests Range/Units 03/05/25 03/05/25 03/05/25 11:10 11:25 12:15 WBC (4.4-10.8) 10^3/uL 11.16 H RBC (3.93-5.22) 10^6/uL 5.27 H Hgb (11.2-15.7) g/dL 14.2 Hct (36.0-46.0) % 43.1 MCV (80-95) fL 82 MCH (27.0-33.0) pg 26.9 L MCHC (32.0-36.0) % 32.9 RDW (11.7-14.6) % 18.7 H Plt Count (130-400) 10^3/uL 278 MPV (8.0-11.0) fL 10.6 Immature Gran % % 1.3 Neutrophils % % 84.3 Lymphocytes % % 6.5 Monocytes % % 7.5 Eosinophils % % 0.2 Basophils % % 0.2 Nucleated RBC % (0.0-0.3) % 0.0 Absolute Neutrophils (1.2-6.7) 10^3/uL 9.41 H Absolute Lymphocytes (1.2-3.4) 10^3/uL 0.73 L Absolute Monocytes (0.1-0.8) 10^3/uL 0.84 H Absolute Eosinophils (0.0-0.7) 10^3/uL 0.02 Absolute Basophils (0.0-0.2) 10^3/uL 0.02 VBG pH (7.31-7.41) 7.44 H VBG pCO2 (41-51) mmHg 37 L VBG pO2 mmHg 47 VBG HCO3 (23-28) mmol/L 25 VBG Total CO2 (24-29) mmol/L 22 L VBG O2 Saturation % 83 VBG Base Excess (-2-3) mmol/L 1 Sodium Cancelled 139 Potassium Cancelled 4.4 Chloride Cancelled 103 Carbon Dioxide Cancelled 27.0 Anion Gap Cancelled 9.0 BUN Cancelled 26 H Creatinine Cancelled 0.9 Est GFR (CKD-EPI 2020) Cancelled 70.95 Glucose Cancelled 113 H Calcium Cancelled 9.1 Magnesium Cancelled 2.2 Total Bilirubin Cancelled 0.8 AST Cancelled 25 ALT Cancelled 47 Alkaline Phosphatase Cancelled 91 Troponin I Cancelled 15 14 NT-Pro-B Natriuret Pep Cancelled 380 H Total Protein Cancelled 6.6 Albumin Cancelled 3.5 TSH Cancelled 0.10 L Free T4 (0.76-1.46) ng/dL 1.63 H Range/Units 03/05/25 14:02 WBC (4.4-10.8) 10^3/uL RBC (3.93-5.22) 10^6/uL Hgb (11.2-15.7) g/dL Hct (36.0-46.0) % MCV (80-95) fL MCH (27.0-33.0) pg MCHC (32.0-36.0) % RDW (11.7-14.6) % Plt Count (130-400) 10^3/uL MPV (8.0-11.0) fL Immature Gran % % Neutrophils % % Lymphocytes % % Monocytes % % Eosinophils % % Basophils % % Nucleated RBC % (0.0-0.3) % Absolute Neutrophils (1.2-6.7) 10^3/uL Absolute Lymphocytes (1.2-3.4) 10^3/uL Absolute Monocytes (0.1-0.8) 10^3/uL Absolute Eosinophils (0.0-0.7) 10^3/uL Absolute Basophils (0.0-0.2) 10^3/uL VBG pH (7.31-7.41) VBG pCO2 (41-51) mmHg VBG pO2 mmHg VBG HCO3 (23-28) mmol/L VBG Total CO2 (24-29) mmol/L VBG O2 Saturation % VBG Base Excess (-2-3) mmol/L Sodium Potassium Chloride Carbon Dioxide Anion Gap BUN Creatinine Est GFR (CKD-EPI 2020) Glucose Calcium Magnesium Total Bilirubin AST ALT Alkaline Phosphatase Troponin I Cancelled NT-Pro-B Natriuret Pep Total Protein Albumin TSH Free T4 (0.76-1.46) ng/dL PFSH All Active Problems (Updated 03/05/25 @ 13:46 by Luli Monteiro NP) Pneumonia (Acute) Dyspnea (Acute) Colitis (Acute) Diarrhea (Acute) Acute hypokalemia (Acute) Acute dehydration (Acute) Discharge planning issues (Acute) DVT prophylaxis (Acute) Back pain (Acute) Atrial fibrillation (Chronic) C. 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 GERD (gastroesophageal reflux disease) Hyperlipidemia Prediabetes History of thyroid cancer BMI 35.0-35.9,adult Allergic rhinitis Pneumonia Malaise and fatigue Rosacea Acute cystitis Surgical History History of partial hysterectomy H/O colonoscopy (~08/10/22) H/O esophagogastroduodenoscopy History of laryngoplasty Hx of cholecystectomy Hx of thyroidectomy Social History Smoking/Tobacco Use Status: Former Tobacco Use Quit Date: 06/03/83 Smoking risk assessment performed?: Yes Alcohol Intake: current Alcohol Intake frequency: a few times a month Drug use: Rarely Substance use type: marijuana Details: marijuana inh t-2 Housing: apartment Do you feel safe at home: Yes Do you feel safe in your relationship?: Yes
[2025-03-05 11:21] LABS: BE (Venous) 1 mmol/L (-2-3); HCO3 (Venous) 25 mmol/L (23-28); O2 Sat (Venous) 83 %; TCO2 (Venous) 22 mmol/L (24-29); pCO2 (Venous) 37 mmHg (41-51); pO2 (Venous) 47 mmHg
[2025-03-05 11:22] LABS: Abs Immature Grans 0.15 10^3/uL (0.0-0.06); HCT 43.1 % (36.0-46.0); HGB 14.2 g/dL (11.2-15.7); Immature Grans % 1.3 %; MCH 26.9 pg (27.0-33.0); MCHC 32.9 % (32.0-36.0); MCV 82 fL (80-95); MPV 10.6 fL (8.0-11.0); Platelet Count 278 10^3/uL (130-400); RBC 5.27 10^6/uL (3.93-5.22); RDW 18.7 % (11.7-14.6); RDW-SD 55.5 fL; WBC 11.16 10^3/uL (4.4-10.8)
[2025-03-05 12:03] LABS: ALT 47 U/L (14-59); AST 25 U/L (15-37); Albumin 3.5 g/dL (3.4-5.0); Alkaline Phosphatase 91 U/L (46-116); Anion Gap 9.0 mmol/L (3-11); BUN 26 mg/dL (7-18); Bilirubin, Total 0.8 mg/dL (0.2-1.0); CO2 27.0 mmol/L (21.0-32.0); Calcium 9.1 mg/dL (8.5-10.1); Chloride 103 mmol/L (98-107); Estimated GFR 70.95 (mL/min/1.73m2); Glucose 113 mg/dL (74-106); Magnesium 2.2 mg/dL (1.8-2.4); NT-proBNP 380 pg/mL (<300); Potassium 4.4 mmol/L (3.5-5.1); Sodium 139 mmol/L (136-145); TSH (W/Ref FT4) 0.10 uIU/mL (0.36-3.74); Total Protein 6.6 g/dL (6.4-8.2); Troponin I 15 ng/L (<or=51)
[2025-03-05] MEDS: Acetaminophen 325 MG TAB 650 MG PO (12:26)
--- NOTE | 2025-03-05 12:30 | DI.RAD_ITS ---
Exam(s) XR CHEST 2V PA LATERAL EXAM: XR CHEST 2V PA LATERAL CLINICAL HISTORY: , SOB. TECHNIQUE: 2D digital imaging was performed. COMPARISON: CR XR PORTABLE CHEST AP from 03/05/2025 FINDINGS: 2 views: Heart size is normal. The mediastinum is not widened. . Unilateral density over the mid-lower right lung most probably corresponds to the unilateral breast implant at this level. There is some platelike atelectasis in left lung base. There is slight blunting of left costophrenic angle which may indicate a small amount left pleural fluid. IMPRESSION: Mild left lung base findings. DATA REPOSITORY: RADIATION DOSE DELIVERED:
[2025-03-05 12:37] LABS: Troponin I 14 ng/L (<or=51)
[2025-03-05] MEDS: Doxycycline Hyclate 100 MG, 2 CAPS/BTL PO (13:43)
[2025-03-05] MEDS: Albuterol HFA 8 GM 60 PUFF INH IH (13:43)
[2025-03-05] MEDS: Doxycycline Hyclate 100 MG CAP PO (13:43)
--- NOTE | 2025-03-08 17:19 | NUR.NOTE ---
Access chart to determine if a referral was done and completed. Nursing Note:
== END 2025-03-05 14:32 | disposition home or self-care (01) ==
PROVIDERS: Emergency Provider Registered Nurse Emergency; PCP Nurse Practitioner Family
DX: J18.9 Pneumonia, unspecified organism (principal); R06.00 Dyspnea, unspecified; Z85.3 Personal history of malignant neoplasm of breast
CPT/HCPCS: 99284 ×2; 36415; 80053; 82805; 93005; 70450; 71045; 71046; 83735; 83880; 84439; 84443; 84484; 85025; 93010

== ENCOUNTER 2025-03-10 08:12 | Outpatient (CLI) | payer MEDICARE, MEDICAID, SELFPAY ==
--- NOTE | 2025-03-10 | DI.US_ITS ---
Exam(s) US EXTREMITY VENOUS BI EXAM: US EXTREMITY VENOUS BI CLINICAL HISTORY: CANCER WITH LEPTOMENINGEAL SPREAD, CANCER OF BREAST METASTATIC TO BRAIN, TECHNIQUE: Grayscale, color, and doppler imaging of the deep venous system of both lower extremities was performed. COMPARISON: US US ECHOCARDIOGRAM from 12/17/2023 FINDINGS: There is no evidence of intraluminal thrombus and there is normal compression and augmentation demonstrated within the common femoral veins, femoral veins, and popliteal veins of both lower extremities. In the calves the interrogated veins also exhibit normal compression/ augmentation properties. The greater saphenous veins also appear patent as do the saphenofemoral junctions bilaterally.. IMPRESSION: 1. No ultrasound evidence of DVT in either lower extremity. DATA REPOSITORY:
== END 2025-03-10 08:32 ==
PROVIDERS: PCP Nurse Practitioner Family; Visit Provider Radiology Radiation Oncology
DX: C50.411 Malignant neoplasm of upper-outer quadrant of right female breast (principal); C79.49 Secondary malignant neoplasm of other parts of nervous system; C79.31 Secondary malignant neoplasm of brain
CPT/HCPCS: 93970

== ENCOUNTER 2025-03-19 14:45 | Outpatient (CLI) | payer MEDICARE, MEDICAID, SELFPAY ==
[2025-03-19 10:41] LABS: Abs Immature Grans 0.06 10^3/uL (0.0-0.06); HCT 45.3 % (36.0-46.0); HGB 14.9 g/dL (11.2-15.7); Immature Grans % 0.7 %; MCH 27.1 pg (27.0-33.0); MCHC 32.9 % (32.0-36.0); MCV 83 fL (80-95); MPV 11.2 fL (8.0-11.0); Platelet Count 112 10^3/uL (130-400); RBC 5.49 10^6/uL (3.93-5.22); RDW 19.4 % (11.7-14.6); RDW-SD 56.1 fL; WBC 8.49 10^3/uL (4.4-10.8)
[2025-03-19 11:06] LABS: ALT 63 U/L (14-59); AST 23 U/L (15-37); Albumin 3.5 g/dL (3.4-5.0); Alkaline Phosphatase 80 U/L (46-116); Anion Gap 9.6 mmol/L (3-11); BUN 23 mg/dL (7-18); Bilirubin, Total 0.8 mg/dL (0.2-1.0); CO2 28.4 mmol/L (21.0-32.0); Calcium 9.0 mg/dL (8.5-10.1); Chloride 103 mmol/L (98-107); Estimated GFR 81.72 (mL/min/1.73m2); Glucose 107 mg/dL (74-106); Potassium 3.9 mmol/L (3.5-5.1); Sodium 141 mmol/L (136-145); Total Protein 6.7 g/dL (6.4-8.2)
== END 2025-03-19 14:46 | disposition home or self-care (01) ==
PROVIDERS: PCP Nurse Practitioner Family; Visit Provider Nurse Practitioner Family
DX: Z51.11 Encounter for antineoplastic chemotherapy (principal)
CPT/HCPCS: 36415; 80053; 85025

== ENCOUNTER 2025-03-26 12:36 | Inpatient (IN) | payer MEDICARE, MEDICAID, SELFPAY ==
[2025-03-26] VITALS (41 sets, daily range): BP systolic 104–142; BP diastolic 74–107; PULSE 89–110; RESP 17–41; TEMP 36–36.8; O2SAT 95–100
--- NOTE | 2025-03-26 12:30 | RT.EKG_ITS ---
APPROVED REPORT Exam: Resting ECG Reason for Exam: weakness Patient Location: E HR:92 bpm ECG Measurements Heart Rate 92 AXIS [place] [id number] P [id number] QRSd 74 QRS -16 QT 351 T 52 QTc 435 Conclusion Atrial fibrillation...V-rate 73-104, irreg A-activity Probable LVH with secondary repol abnrm...multiple LVH criteria No Occlusion [place]
--- NOTE | 2025-03-26 14:06 | W.ED.GENAD ---
Discharge Plan Discharge Details Chief Complaint: GenMedical Primary Care Provider: Kayleigh Chandler ED Provider: Jenni Santamaria Home Meds and New Rx's Prescriptions: No Action lorazepam 1 MG tablet 1 mg PO PRN PRN (Reason: Anxiety) acetaminophen [Mapap Extra Strength] 500 MG tablet 500 mg PO Q8H PRN ondansetron 8 mg tablet,disintegrating 8 mg PO Q8H PRN Patient Comments: DISSOLVE ONE TABLET ON THE TONGUE EVERY 8 HOURS NEEDED FOR NAUSEA Prevalite 4 gram Powder In Packet 1 packet PO 1000,1900 Qty: 60 0RF dexamethasone 2 mg tablet 2 mg PO BID Patient Comments: TAKE ONE TABLET BY MOUTH TWICE A DAY WITH MEALS fluticasone propionate 50 mcg/actuation spray,suspension 1 spray INTRANASAL BID Patient Comments: USE ONE SPRAY INTO BOTH NOSTRILS TWO TIMES A DAY. USE AFTER NASAL SALINE levothyroxine 100 mcg tablet 100 mcg PO QAM Patient Comments: TAKE ONE TABLET BY MOUTH EVERY MORNING 30 MIN. PRIOR TO EATING pantoprazole 40 mg tablet,delayed release (DR/EC) PO Patient Comments: TAKE ONE TABLET BY MOUTH EVERY DAY WHILE TAKING DEXAMETHASONE cyclobenzaprine 5 mg tablet Patient Comments: TAKE ONE TABLET BY MOUTH THREE TIMES A DAY NEEDED HPI General Date/Time Provider Initiated Documentation: 03/26/25 12:45. HPI Narrative: Shea is a 65-year-old female presents to the emergency department today for evaluation of dehydration. Caregiver reports that she is unable to care for Shea requires complete assistance at home, as she has to return home to [place]. Shea is already excepted for placement at [facility] and rehab on Saturday.. Reports feeling unwell, dehydration, poor sleep quality, brain fog since radiation therapy concluded a few weeks ago. Unable to perform ADLs without assistance. Sleeps in a recliner due to difficulty getting in and out of bed. He is on 3 L O2 via nasal cannula at home. Denies recent fever/chills, respiratory symptoms, chest pain, consistent nausea/vomiting, abdominal pain, change in bowel or bladder function. Edema since last Saturday, possibly a side effect of radiation therapy. Ultrasound performed to investigate swelling; DVT ruled out. PMH significant for: Breast cancer with metastases to the brain, stage IV. Electrolyte imbalances (magnesium Shani, hypokalemia), A-fib. Denies history of heart failure/fluid overload, HTN, HLD, Related Data Home Medications Medication Instructions Recorded Confirmed acetaminophen 500 mg tablet (Mapap 500 mg PO Q8H PRN 11/30/14 03/05/25 Extra Strength) lorazepam 1 mg tablet 1 mg PO PRN PRN Anxiety 11/30/14 03/05/25 ondansetron 8 mg disintegrating 8 mg PO Q8H PRN 02/05/23 03/05/25 tablet cholestyramine-aspartame 4 gram 1 packet PO 1000,1900 #60 ea 02/10/23 03/05/25 oral powder for susp in a packet (Prevalite) dexamethasone 2 mg tablet 2 mg PO BID 07/31/23 03/05/25 fluticasone propionate 50 1 spray intranasal BID 01/15/25 03/05/25 mcg/actuation nasal spray,suspension levothyroxine 100 mcg tablet 100 mcg PO QAM 01/15/25 03/05/25 cyclobenzaprine 5 mg tablet mg 03/05/25 pantoprazole 40 mg tablet,delayed mg PO 03/05/25 release Previous Rx's Medication Instructions Recorded cholestyramine-aspartame 4 gram 1 packet PO 1000,1900 #60 ea 02/10/23 oral powder for susp in a packet (Prevalite) Allergies Allergy/AdvReac Type Severity Reaction Status Date / Time etodolac (From Lodine) Allergy swelling Unverified 03/05/25 10:55 of hands Sulfa (Sulfonamide Allergy rash, Unverified 03/05/25 10:55 Antibiotics) hand/arm swelling latex AdvReac Intermediate Hives Unverified 03/05/25 10:55 ciprofloxacin (From Cipro) AdvReac N/V Unverified 03/05/25 10:55 ciprofloxacin HCl (From AdvReac N/V Unverified 03/05/25 10:55 Cipro) General Stated Complaint: GenMedical FISH: 3 Exam Narrative Exam Narrative: General Appearance: Appears fatigued, easily conversational Vital signs: Within normal limits, tachycardia noted. HEENT: tacky MM. Respiratory: Increased work of breathing noted, lungs clear to auscultation bilaterally. Cardiovascular: Tachycardia, regular rhythm. 2+ radial pulses bilaterally. Pedal edema noted. Abdomen: Soft, nondistended, nontender to palpation Skin: Significant bilateral leg edema to chest, ankles, and Psychiatric: Normal. Course Vital Signs Vital signs: Vital Signs Temperature 36.5 C 03/26/25 12:41 Pulse 95 H 03/26/25 12:41 Respiratory Rate 18 03/26/25 12:41 Pulse Oximetry 96 03/26/25 12:41 Temperature 36.8 C 03/26/25 13:20 Temperature Source Oral 03/26/25 13:20 Pulse 103 H 03/26/25 13:20 Respiratory Rate 18 03/26/25 13:20 Respiratory Effort Normal 03/26/25 13:20 Respiratory Depth Normal 03/26/25 13:20 Respiratory Pattern Normal 03/26/25 13:20 Blood Pressure 132/86 03/26/25 13:20 Blood Pressure Mean 117 03/26/25 12:54 Pulse Oximetry 96 03/26/25 12:41 Oxygen Delivery Method Nasal Cannula 03/26/25 13:20 Oxygen Flow Rate 3 03/26/25 13:20 Pain Level 8 03/26/25 13:20 Comment C/O generalized body aches and photosensitivity 03/26/25 13:20 Medical Decision Making Initial Assessment: 65-year-old female with weakness, dehydration, and difficulty performing ADLs independently since radiation therapy for stage IV HER2-positive brain cancer. Differential Diagnosis includes but is not limited to: Occult infection such as pneumonia or UTI, cardiac arrhythmia, dehydration, electrolyte imbalance, liver or kidney dysfunction ED Course: - IV fluids administered for rehydration - Chest x-ray ordered. - Urine test obtained. -labs ordered Discussed case with marquis Blackmon. Consult placed for palliative care consult; palliative care to come to bedside in ED I independently interpreted the following tests: EKG notable for A-fib, rate 92, no changes consistent with acute ischemia. Patient is not on anticoagulation. Workup pending, handoff report given to ALEXANDER Degroot, ED [place]. Clinical Impression: -Generalized weakness Patient consented to the use of [facility] PFSH All Active Problems (Updated 03/05/25 @ 13:46 by Luli Monteiro NP) Pneumonia (Acute) Dyspnea (Acute) Colitis (Acute) Diarrhea (Acute) Acute hypokalemia (Acute) Acute dehydration (Acute) Discharge planning issues (Acute) DVT prophylaxis (Acute) Back pain (Acute) Atrial fibrillation (Chronic) C. 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 GERD (gastroesophageal reflux disease) Hyperlipidemia Prediabetes History of thyroid cancer BMI 35.0-35.9,adult Allergic rhinitis Pneumonia Malaise and fatigue Rosacea Acute cystitis Surgical History History of partial hysterectomy H/O colonoscopy (~08/10/22) H/O esophagogastroduodenoscopy History of laryngoplasty Hx of cholecystectomy Hx of thyroidectomy Social History Smoking/Tobacco Use Status: Former Tobacco Use Quit Date: 06/03/83 Smoking risk assessment performed?: Yes Alcohol Intake: current Alcohol Intake frequency: a few times a month Drug use: Rarely Substance use type: marijuana Details: marijuana inh t-2 Housing: apartment Do you feel safe at home: Yes Do you feel safe in your relationship?: Yes
[2025-03-26] MEDS: Lactated Ringers 1,000 ML 500 ML IV (14:52)
[2025-03-26 14:55] LABS: HCT 47.0 % (36.0-46.0); HGB 15.4 g/dL (11.2-15.7); MCH 27.5 pg (27.0-33.0); MCHC 32.8 % (32.0-36.0); MCV 84 fL (80-95); MPV 10.1 fL (8.0-11.0); Platelet Count 142 10^3/uL (130-400); RBC 5.60 10^6/uL (3.93-5.22); RDW 20.0 % (11.7-14.6); RDW-SD 59.0 fL; WBC 4.94 10^3/uL (4.4-10.8)
--- NOTE | 2025-03-26 15:33 | W.PALLCONSUL ---
Date of service: 03/26/25 Time of Service: 15:33 History of Present Illness Narrative: Shea Verma is a miguel angel 65 year old female with breast cancer metastatic to brain. She had brain surgery in 02/2025. She presented to [facility] and rehab to be considered for admission but she was sent to the ED because she appeared ill. Her friend, Tootie Driver has been staying with her for 3 weeks and has to go back home to [place]. She recently completed whole brain radiation and had a discussion with her oncologist, Dr. Graff who was clear that her life expectancy was measured in weeks. Tootie reports that Shea has been declining significantly over the last few weeks. She has been having more difficulty with mobility until today when she could not walk. She is having more pain. She was previously on gabapentin and hydromorphone which worked well for her but she has not been on anything recently. She reports her pain is 8/10 at present. Her pain is in her head, tailbone and feet. She is eating small amounts of soft foods. She has to be fed and her head has to be lifted/held back while she is fed. She cannot hold her head up. She has difficulty swallowing. Reviewed GOC. Shea wants to squeeze out as many days as she can. She states she is not afraid of dying. She has had after-life experiences and knows she will see loved ones and pets. She wishes to focus on comfort/QOL but hopes to have a miraculous recovery and get stronger. Reviewed CODE STATUS. She wishes to change her CODE STATUS to DNR/DNI, COLST completed. There is a plan for her to be admitted to the [facility] rehab on Saturday, she will be admitted to [facility] for comfort care until then. She thinks she will want Hospice once she gets to the rehab. We discussed that she could revoke hospice if she improved significantly. She had several family/friends visiting her in the ED. Assessment and Plan Assessment and plan (1) Metastasis to brain: Status: Acute Assessment and plan: S/p brain surgery in 02/2025. S/p whole brain radiation 03/2025. (2) Breast cancer: Status: Chronic Assessment and plan: No further treatment options per Dr. Graff, [facility] oncology. Her life expectancy is weeks according to oncology. (3) Cancer related pain: Status: Acute Assessment and plan: Pain is 8/10 in her head, tail bone and feet. Gabapentin and hydromorphone have helped in the past. (4) Comfort measures only status: Status: Acute Assessment and plan: Admit for comfort care. The plan is for her to be admitted to [facility] rehab on Saturday. She thinks she wants hospice at the rehab. (5) Palliative care patient: Status: Acute Assessment and plan: Palliative will follow along until she transitions to hospice. (6) Advanced care planning/counseling discussion: Status: Acute Assessment and plan: Reviewed GOC, she wants to focus on comfort and squeeze as many days out as she can. She is not afraid to . She is DNR/DNI, COLST completed. She has AD that state her sister, Emma Farias is her HCA, she wishes to keep this in place. Review of Systems Narrative: Per HPI PFSH All Active Problems (Updated 03/26/25 @ 17:33 by Kathy Peoples NP) Advanced care planning/counseling discussion (Acute) Palliative care patient (Acute) Comfort measures only status (Acute) Cancer related pain (Acute) Metastasis to brain (Acute) Admission for palliative care (Acute) Debility (Acute) Pneumonia (Acute) Dyspnea (Acute) Colitis (Acute) Diarrhea (Acute) Acute hypokalemia (Acute) Acute dehydration (Acute) Discharge planning issues (Acute) DVT prophylaxis (Acute) Back pain (Acute) Atrial fibrillation (Chronic) C. 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 GERD (gastroesophageal reflux disease) Hyperlipidemia Prediabetes History of thyroid cancer BMI 35.0-35.9,adult Allergic rhinitis Pneumonia Malaise and fatigue Rosacea Acute cystitis Surgical History History of partial hysterectomy H/O colonoscopy (~08/10/22) H/O esophagogastroduodenoscopy History of laryngoplasty Hx of cholecystectomy Hx of thyroidectomy Social History Smoking/Tobacco Use Status: Former Tobacco Use Quit Date: 06/03/83 Smoking risk assessment performed?: Yes Alcohol Intake: current Alcohol Intake frequency: a few times a month Drug use: Rarely Substance use type: marijuana Details: marijuana inh t-2 Housing: apartment Do you feel safe at home: Yes Do you feel safe in your relationship?: Yes Exam Narrative Exam Narrative: General: very pleasant, middle aged female lying on the stretcher in the ED. She was awake and alert, engaged in the visit, voice is soft. HEENT: atraumatic, MMM. Neck: unable to hold her head up completely, leaning forward. Respiratory: respirations appear even and unlabored. Results Last Vital Signs Temp 36.8 C 03/26/25 13:20 Pulse 96 H 03/26/25 15:00 Resp 28 H 03/26/25 15:00 BP 104/82 03/26/25 14:16 Pulse Ox 99 03/26/25 15:00 Labs 03/26/25 14:48 Labs: Laboratory Results - last 24 hr 03/26/25 14:48 WBC 4.94 RBC 5.60 H Hgb 15.4 Hct 47.0 H MCV 84 MCH 27.5 MCHC 32.8 RDW 20.0 H Plt Count 142 MPV 10.1 Time Spent Time Spent with Patient Time Spent(min): 113
[2025-03-26 15:46] LABS: ALT 111 U/L (14-59); AST 63 U/L (15-37); Albumin 3.4 g/dL (3.4-5.0); Alkaline Phosphatase 124 U/L (46-116); Anion Gap 11.7 mmol/L (3-11); BUN 19 mg/dL (7-18); Bilirubin, Total 1.0 mg/dL (0.2-1.0); CO2 28.3 mmol/L (21.0-32.0); Calcium 9.2 mg/dL (8.5-10.1); Chloride 101 mmol/L (98-107); Glucose 92 mg/dL (74-106); Potassium 3.9 mmol/L (3.5-5.1); Sodium 141 mmol/L (136-145); TSH (W/Ref FT4) 1.32 uIU/mL (0.36-3.74); Total Protein 7.3 g/dL (6.4-8.2)
--- NOTE | 2025-03-26 17:27 | W.PM.HP.N ---
Date of service: 03/26/25 Time of Service: 19:11 Assessment and Plan Assessment and plan (1) Breast cancer: Status: Chronic Assessment and plan: Appreciate palliative care evaluation Patient has weeks to live per oncology, no further treatment planned (2) Cancer related pain: Status: Acute Assessment and plan: Headaches, foot pain and sacral pain. She has had relief with gabapentin and dilaudid Continue gabapentin and dilaudid (3) Comfort measures only status: Status: Acute Assessment and plan: Pain management [facility] will take her on Saturday if appropriate History of Present Illness History of Present Illness Chief Complaint: inability to care for self Narrative: Shea Verma is a 65 year old woman presenting March 26 with weakness and inability to care for herself. Patient has breast cancer with brain metastases. She was evaluated for admission at [facility], and was sent in due to her poor condition. Palliative care evaluated patient, confirmed DNR status, and recommended admission for comfort care. [facility] All Active Problems (Updated 03/26/25 @ 17:33 by Kathy Peoples NP) Advanced care planning/counseling discussion (Acute) Palliative care patient (Acute) Comfort measures only status (Acute) Cancer related pain (Acute) Metastasis to brain (Acute) Admission for palliative care (Acute) Debility (Acute) Pneumonia (Acute) Dyspnea (Acute) Colitis (Acute) Diarrhea (Acute) Acute hypokalemia (Acute) Acute dehydration (Acute) Discharge planning issues (Acute) DVT prophylaxis (Acute) Back pain (Acute) Atrial fibrillation (Chronic) C. 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 GERD (gastroesophageal reflux disease) Hyperlipidemia Prediabetes History of thyroid cancer BMI 35.0-35.9,adult Allergic rhinitis Pneumonia Malaise and fatigue Rosacea Acute cystitis Surgical History History of partial hysterectomy H/O colonoscopy (~08/10/22) H/O esophagogastroduodenoscopy History of laryngoplasty Hx of cholecystectomy Hx of thyroidectomy Social History Smoking/Tobacco Use Status: Former Tobacco Use Quit Date: 06/03/83 Smoking risk assessment performed?: Yes Alcohol Intake: current Alcohol Intake frequency: a few times a month Drug use: Rarely Substance use type: marijuana Details: marijuana inh t-2 Housing: apartment Do you feel safe at home: Yes Do you feel safe in your relationship?: Yes Meds Allergies and Home Medications Allergies Allergy/AdvReac Type Severity Reaction Status Date / Time etodolac (From Lodine) Allergy swelling Unverified 03/05/25 10:55 of hands Sulfa (Sulfonamide Allergy rash, Unverified 03/05/25 10:55 Antibiotics) hand/arm swelling latex AdvReac Intermediate Hives Unverified 03/05/25 10:55 ciprofloxacin (From Cipro) AdvReac N/V Unverified 03/05/25 10:55 ciprofloxacin HCl (From AdvReac N/V Unverified 03/05/25 10:55 Cipro) Home Medications Medication Instructions Recorded Confirmed Type acetaminophen 500 mg tablet (Mapap 500 mg PO Q8H PRN 11/30/14 03/26/25 History Extra Strength) lorazepam 1 mg tablet 1 mg PO PRN PRN Anxiety 11/30/14 03/26/25 History ondansetron 8 mg disintegrating 8 mg PO Q8H PRN 02/05/23 03/26/25 History tablet cholestyramine-aspartame 4 gram 1 packet PO 1000,1900 #60 ea 02/10/23 03/26/25 Rx oral powder for susp in a packet (Prevalite) dexamethasone 2 mg tablet 2 mg PO BID 07/31/23 03/26/25 History fluticasone propionate 50 1 spray intranasal BID 01/15/25 03/26/25 History mcg/actuation nasal spray,suspension levothyroxine 100 mcg tablet 100 mcg PO QAM 01/15/25 03/26/25 History cyclobenzaprine 5 mg tablet 5 mg PO TID 03/05/25 03/26/25 History pantoprazole 40 mg tablet,delayed 40 mg PO DAILY 03/05/25 03/26/25 History release Exam Narrative Exam Narrative: General: This is a pleasant, chronically ill-appearing woman in no distress HEENT: Normocephalic, atraumatic. Unable to maintain upright head position due to esophageal/thyroid surgeries. CV: RRR Resp: CTAB Abd: soft, NTND MSK: voluntary motion x4 Neuro: awake, alert, no focal deficits Results Labs 03/26/25 14:48 03/26/25 14:48 Labs: Laboratory Results - last 24 hr 03/26/25 14:48 WBC 4.94 RBC 5.60 H Hgb 15.4 Hct 47.0 H MCV 84 MCH 27.5 MCHC 32.8 RDW 20.0 H Plt Count 142 MPV 10.1 Sodium 141 Potassium 3.9 Chloride 101 Carbon Dioxide 28.3 Anion Gap 11.7 H BUN 19 H Creatinine 0.7 Est GFR (CKD-EPI 2020) 95.92 Glucose 92 Calcium 9.2 Total Bilirubin 1.0 AST 63 H ALT 111 H Alkaline Phosphatase 124 H Total Protein 7.3 Albumin 3.4 TSH 1.32 Last Vital Signs Temp 36.8 C 03/26/25 13:20 Pulse 109 H 03/26/25 16:10 Resp 28 H 03/26/25 16:30 BP 104/82 03/26/25 14:16 Pulse Ox 100 03/26/25 16:10 Time Spent Time spent with Patient: <40 minutes Time was spent: preparing to see the patient(eg.review tests), obtaining and/or reviewing separately otained hiistory, ordering medications,tests, procedures, referring, communicating with other health small animal caretaker, indepentently interpreting results, counseling the patient and care coordination
--- NOTE | 2025-03-26 18:50 | W.PC.ACHO ---
Registration Status: ADM IN Primary Language: Preferred Language: Hungarian ED Information & Data Chief Complaint GenMedical 03/26/25 14:09 Triage Note per caregiver pt not able to 03/26/25 12:41 assist with care any longer caregiver states pt is to be admitted [facility] rehab on saturday per caregiver pt can no longer take care of her at home due to weakness from 10 days radiation. 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 GERD (gastroesophageal reflux disease) Hyperlipidemia Prediabetes History of thyroid cancer BMI 35.0-35.9,adult Allergic rhinitis Pneumonia Malaise and fatigue Rosacea Acute cystitis (Last Reviewed 03/26/25 @ 17:27 by Kathy Peoples NP) History of partial hysterectomy H/O colonoscopy (~08/10/22) H/O esophagogastroduodenoscopy History of laryngoplasty Hx of cholecystectomy Hx of thyroidectomy Most Recent Vital Signs Temperature 36.8 C 03/26/25 13:20 Temperature Source Oral 03/26/25 13:20 Pulse 103 H 03/26/25 18:20 Pulse 98 H 03/26/25 18:20 Respiratory Rate 18 03/26/25 18:20 Respiratory Effort Normal, Non-Labored 03/26/25 17:40 Respiratory Depth Normal 03/26/25 17:40 Respiratory Pattern Normal 03/26/25 17:40 Blood Pressure 137/78 03/26/25 18:01 Blood Pressure Mean 87 03/26/25 18:01 Pulse Oximetry 100 03/26/25 18:20 Oxygen Delivery Method Nasal Cannula 03/26/25 17:40 Oxygen Flow Rate 3 03/26/25 17:40 Pain Level 0 03/26/25 18:25 Comment C/O generalized body aches and photosensitivity 03/26/25 13:20 Allergies etodolac (From Lodine) Allergy (Unverified 03/05/25 10:55) swelling of hands Sulfa (Sulfonamide Antibiotics) Allergy (Unverified 03/05/25 10:55) rash, hand/arm swelling latex Adverse Reaction (Intermediate, Unverified 03/05/25 10:55) Hives ciprofloxacin (From Cipro) Adverse Reaction (Unverified 03/05/25 10:55) N/V ciprofloxacin HCl (From Cipro) Adverse Reaction (Unverified 03/05/25 10:55) N/V IV IV Catheter Type [Left Peripheral IV Antecubital] IV Catheter Gauge [Left 18 Antecubital] Diet Orders Category Date Time Status Regular/Normal [DIET] Nutrition 03/26/25 Dinner Active Diagnostics 03/26/25 03/26/25 Range/Units 14:48 13:04 WBC 4.94 (4.4-10.8) 10^3/uL RBC 5.60 H (3.93-5.22) 10^6/uL Hgb 15.4 (11.2-15.7) g/dL Hct 47.0 H (36.0-46.0) % MCV 84 (80-95) fL MCH 27.5 (27.0-33.0) pg MCHC 32.8 (32.0-36.0) % RDW 20.0 H (11.7-14.6) % Plt Count 142 (130-400) 10^3/uL MPV 10.1 (8.0-11.0) fL Sodium 141 (136-145) mmol/L Potassium 3.9 (3.5-5.1) mmol/L Chloride 101 (98-107) mmol/L Carbon Dioxide 28.3 (21.0-32.0) mmol/L Anion Gap 11.7 H (3-11) mmol/L BUN 19 H (7-18) mg/dL Creatinine 0.7 (0.55-1.02) mg/dL Est GFR (CKD-EPI 2020) 95.92 (mL/min/1.73m2) Glucose 92 (74-106) mg/dL Calcium 9.2 (8.5-10.1) mg/dL Total Bilirubin 1.0 (0.2-1.0) mg/dL AST 63 H (15-37) U/L ALT 111 H (14-59) U/L Alkaline Phosphatase 124 H (46-116) U/L Total Protein 7.3 (6.4-8.2) g/dL Albumin 3.4 (3.4-5.0) g/dL TSH 1.32 (0.36-3.74) uIU/mL COVID-19 Source Pending SARS-CoV-2 (PCR) Pending Influenza Type A (PCR) Pending Influenza Type B (PCR) Pending RSV (PCR) Pending Intake and Output - 24 Hour Total 03/26/25 12:36 thru 03/26/25 12:41 Weight 81.647 kg Falls Risk Assessment History of Falls Previous History 03/26/25 13:15 Contributing Factors Unstable,Impairments, 03/26/25 13:15 Incontinence Ambulatory Aids Uses ambulatory device + 03/26/25 13:15 Gait Evaluation W/any additional score 03/26/25 13:15 Cognition Cognitive impairment 03/26/25 13:15 Fall Total Score 89 03/26/25 13:15 Level of Risk Maximum Risk 03/26/25 13:15 Problems (Last Reviewed 03/26/25 @ 17:27 by Kathy Peoples NP) Advanced care planning/counseling discussion (Acute) Palliative care patient (Acute) Comfort measures only status (Acute) Cancer related pain (Acute) Metastasis to brain (Acute) Admission for palliative care (Acute) Debility (Acute) Breast cancer (Chronic) v v v v v v v v v Sending and/or Receiving Nurses: Please use comment section below to note any information pertinent to the patient hand-off not included above. Information / Comments: Pt needs head held up to eat or drink. Pt reports she is not hungry, but has had only a few sips of water. Reports pain at an 8, confined to head and eyes. Report received from: ANJANA Valverde RN
[2025-03-26] MEDS: HYDROmorphone 2 MG/ML SYR 1 MG IVP (19:41)
[2025-03-26] MEDS: Gabapentin 300 MG CAP PO (19:45)
[2025-03-26] MEDS: Dexamethasone 1 MG TAB 2 MG PO (19:45)
[2025-03-26] MEDS: Docusate Sodium 100 MG CAP PO (19:45)
[2025-03-26] MEDS: Normal Saline Flush 10 ML SYR IVP (19:49)
[2025-03-26 20:37] LABS: COVID-19 PCR Negative (Negative); RSV PCR Negative (Negative)
[2025-03-26] MEDS: Fluticasone NASAL SPRAY 16 GM BTL NS (21:54)
[2025-03-27] MEDS: HYDROmorphone 2 MG/ML SYR 1 MG IVP ×5 (00:46→17:38)
[2025-03-27 04:01] LABS: Glucose Negative (Negative)
[2025-03-27 04:07] LABS: C & S Indicated? Yes; WBC >50 HPF (0-5)
[2025-03-27] MEDS: Bisacodyl 10 MG SUPP PR (05:52)
[2025-03-27] MEDS: Levothyroxine 100 MCG TAB PO (05:52)
--- NOTE | 2025-03-27 07:39 | PDOC.CMIN ---
Date of service: 03/27/25 Time of Service: 07:39 Care Management Initial Assmt Initial Assessment Reason for Hospitalization: comfort measures, awaiting placement at SNF on 03/29 Functional Status/Living Situation Patient Presentation: Shea presented to the ED yesterday afternoon with c/o cancer related pain and awaiting admission to [facility] Living on Thursday 03/29. Per Melisa Calle, Shea is accepted for Saturday for comfort andCM care due to her breast cancer with brain metastases. She presented to [facility] yesterday for admission, but appeared sickly and was sent to the ED. She was admitted for comfort measures care until Saturday. She had a palliative care consult in the ED yesterday, and thinks that she will want hospice care at the the rehab. Per report, Shea has had a significant decline over the last 3 weeks. She was unable to walk yesterday. She is eating small amounts of soft foods. She has to be fed and her head has to be lifted/held back while she is fed. She cannot hold her head up. She has difficulty swallowing. Per her oncologist, Shea's life expectancy is only weeks. Shea was sitting up in the bed,visiting with some friends, when CM met with her today. She was pleasant with CM, but did appear very tired. She was noted to hold her head tilted to the left side. She stated that she ate a little bit today, but then developed some nausea. She stated that she is adjusting to her new pain medication regime, and feels better that she has in a while, although that is still not great. CM did not stay long with Shea, as she had visitors. Town of Residence: apartment in [facility]. Will be admitted to [facility] on 03/29 for hospice care/[employer] Resides with: Alone Significant Other/Family: Local (good support group) Natural Supports: Good friend, Tootie, had been helping Shea for the last couple of weeks, but needed to return home to [place]. Instrumental Activities of Daily Living (ADLs): Requires support Medications Medication Management: No Issues/Barriers identified Physical Functioning/Mobility Assistive Device: FWW when able Advance Directives Advance Directives: Do you have an Advance Directive: Y 03/26/25, 22:38 AD On File at [facility]: Y 03/26/25, 22:38 Date Asked 03/26/25 03/26/25, 12:51 AD Date Reviewed 03/26/25 03/26/25, 22:38 COLST On File at [facility] COLST Date Scanned Code Status Resuscitation Status DNR/DNI Insurance Coverage/Financial Issues Insurance: Medicare Part A & B - Medicaid of [place] Care Team Visit Care Team Role Provider Type Kayleigh Chandler MD Primary Care Provider [facility] STAFF PHYSICIAN Catherine Sanchez Other Providers STOCK TRACER Ritu Allen Other Providers STOCK TRACER Valeria Lovell Other Providers STOCK TRACER Rozina Villarreal RN Other Providers STOCK TRACER Angie Camacho Other Providers STOCK TRACER ALEXANDER Millan Emergency Provider PHYSICIANS MEAT CARRIER Augusto Callahan MD Admit Provider [facility] STAFF PHYSICIAN Attending Provider Discharge Potential Discharge Needs: Other (f/u with facility provider and with palliative care) Anticipated Barriers to Discharge: None Identified Patient/Family Education Needs: Review discharge instructions, discuss Ask Me Three Transportation: EMS Plan: Shea will remain at [facility] through the weekend for comfort care. She will transition to [facility] for [facility] on Thursday 03/29. It is likely that she will choose to have hospice services at the rehab. Shea will transport via EMS vs [facility] wheelchair van. will continue to monitor and support. Social Determinants of Health Screening Will the Patient Participate in the Screening?: Declined to provide In the past 12 months, have you had to go without electric, gas, oil or water in your home?: no Has lack of transportation kept you from medical appointments or from doing things needed for daily living?: no Has anyone in your life made you feel unsafe or unsupported?: no How hard is it for you to pay for the very basics like food, housing, medical care, and heating? Would you say it is:: Not hard at all If for any reason you need help with day-to-day activities such as bathing, preparing meals, shopping, managing finances, etc., do you get the help you need?: I get all the help I need How often do you feel lonely or isolated from those around you?: Never Do you speak a language other than Turkmen at home?: No PFSH All Active Problems (Updated 03/26/25 @ 17:33 by Kathy Peoples NP) Advanced care planning/counseling discussion (Acute) Palliative care patient (Acute) Comfort measures only status (Acute) Cancer related pain (Acute) Metastasis to brain (Acute) Admission for palliative care (Acute) Debility (Acute) Pneumonia (Acute) Dyspnea (Acute) Colitis (Acute) Diarrhea (Acute) Acute hypokalemia (Acute) Acute dehydration (Acute) Discharge planning issues (Acute) DVT prophylaxis (Acute) Back pain (Acute) Atrial fibrillation (Chronic) C. 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 GERD (gastroesophageal reflux disease) Hyperlipidemia Prediabetes History of thyroid cancer BMI 35.0-35.9,adult Allergic rhinitis Pneumonia Malaise and fatigue Rosacea Acute cystitis Surgical History History of partial hysterectomy H/O colonoscopy (~08/10/22) H/O esophagogastroduodenoscopy History of laryngoplasty Hx of cholecystectomy Hx of thyroidectomy Social History Smoking/Tobacco Use Status: Former Tobacco Use Quit Date: 06/03/83 Smoking risk assessment performed?: Yes Alcohol Intake: current Alcohol Intake frequency: a few times a month Drug use: Rarely Substance use type: marijuana Details: marijuana inh t-2 Housing: apartment Do you feel safe at home: Yes Do you feel safe in your relationship?: Yes
[2025-03-27] MEDS: Docusate Sodium 100 MG CAP PO ×2 (09:17→19:55)
[2025-03-27] MEDS: Normal Saline Flush 10 ML SYR IVP ×3 (09:18→19:58)
[2025-03-27] MEDS: Pantoprazole 40 MG TABCR PO (09:18)
[2025-03-27] MEDS: Gabapentin 300 MG CAP PO ×3 (09:18→19:55)
[2025-03-27] MEDS: Dexamethasone 1 MG TAB 2 MG PO ×2 (09:18→19:56)
[2025-03-27] MEDS: Fluticasone NASAL SPRAY 16 GM BTL NS (11:35)
[2025-03-27] MEDS: Lidocaine 5% Patch 2 PATCH TP (14:36)
--- NOTE | 2025-03-27 16:01 | PGE_ITS ---
Date of Service Date of service: 03/27/25 Time of Service: 11:00 Assessment and Plan Assessment and plan (1) Breast cancer: Status: Chronic Assessment and plan: Appreciate palliative care evaluation Patient has weeks to live per oncology, no further treatment planned (2) Cancer related pain: Status: Acute Assessment and plan: Headaches, foot pain and sacral pain. She has had relief with gabapentin and dilaudid Continue gabapentin and dilaudid (3) Comfort measures only status: Status: Acute Assessment and plan: Pain management [facility] will take her on Saturday if appropriate Mar 27: added PRN lorazepam. Patient does not want morphine due to previous bad experience. Subjective Subjective Interval history since last seen: Mrs. Verma is comfortable in bed. No overnight events, no new complaints. Exam Narrative Exam Narrative: General: This is a pleasant, chronically ill-appearing woman in no distress HEENT: Normocephalic, atraumatic. Unable to maintain upright head position due to esophageal/thyroid surgeries. CV: RRR Resp: CTAB Abd: soft, NTND MSK: voluntary motion x4 Neuro: awake, alert, no focal deficits Objective Last Vital Signs Temp 36 C L 03/26/25 21:23 Pulse 98 H 03/26/25 21:23 Resp 17 03/26/25 21:23 BP 130/90 03/26/25 21:23 Pulse Ox 100 03/26/25 21:23 Laboratory Results - last 24 hr 03/26/25 03/27/25 19:53 03:59 Urine Color Yellow Urine Clarity Sl Cloudy Urine pH 8.5 H Ur Specific [place] 1.015 Urine Protein 100 H Urine Ketones 80 H Urine Blood Large H Urine Nitrite Negative Urine Bilirubin Small H Urine Urobilinogen 0.2 Ur Leukocyte Esterase Large H Urine RBC 10-20 H Urine WBC >50 H Ur Epithelial Cells Few Urine Crystals Negative Urine Bacteria Moderate Urine Casts Negative Urine Mucus Negative Ur Culture Indicated? Yes Urine Glucose Negative COVID-19 Source Nasopharynx SARS-CoV-2 (PCR) Negative Influenza Type A (PCR) Negative Influenza Type B (PCR) Negative RSV (PCR) Negative Time Spent with Patient Time Spent with Patient: 25-34 minutes Time was spent: preparing to see the patient(eg.review tests), obtaining and/or reviewing separately otained hiistory, ordering medications,tests, procedures, referring, communicating with other health hospice patient care secretary, indepentently interpreting results, counseling the patient and care coordination
[2025-03-27] MEDS: Ondansetron 4 MG/2 ML VIAL IVP (17:38)
[2025-03-27] MEDS: LORazepam 1 MG TAB PO (19:55)
[2025-03-28] MEDS: HYDROmorphone 2 MG/ML SYR 1 MG IVP ×2 (00:38→20:45)
[2025-03-28] MEDS: Ondansetron 4 MG/2 ML VIAL IVP (00:39)
[2025-03-28] MEDS: Refresh PLUS Eye Drops 0.4ml OU (00:40)
[2025-03-28] MEDS: Patch Removal 2 EACH TP (02:48)
[2025-03-28] MEDS: LORazepam 1 MG TAB PO ×2 (02:54→06:13)
[2025-03-28] MEDS: Levothyroxine 100 MCG TAB PO (06:13)
[2025-03-28] MEDS: Docusate Sodium 100 MG CAP PO (08:15)
[2025-03-28] MEDS: Pantoprazole 40 MG TABCR PO (08:15)
[2025-03-28] MEDS: Dexamethasone 1 MG TAB 2 MG PO (08:15)
[2025-03-28] MEDS: Gabapentin 300 MG CAP PO ×2 (08:15→14:16)
[2025-03-28] MEDS: Normal Saline Flush 10 ML SYR IVP ×2 (08:21→20:54)
[2025-03-28 08:57] VITALS: BP 123/89; PULSE 108; RESP 22; TEMP 36.5; O2SAT 94
[2025-03-28] MEDS: Fluticasone NASAL SPRAY 16 GM BTL NS (09:00)
[2025-03-28 09:14] VITALS: RESP 20; O2SAT 94
[2025-03-28 09:55] VITALS: O2SAT 91
--- NOTE | 2025-03-28 13:43 | PDOC.CMPRO ---
Date of service: 03/28/25 Time of Service: 13:43 Care Management Progress Note Progress Note Text Progress Note Text: Shea's family asked to meet with provider and CM today. Provider answered a lot of questions to the family regarding Shea's status, care and prognosis. Shea's family is concerned about paying for Shea's snf stay. [facility] medicaid application has already been submitted. She has been approved for clinical but is still awaiting her financial approval, which Emma (sister and HCA) feels that she will qualify financially. The family also had questions regarding her care, what the facility is like, what hospice entails, how Shea will be kept comfortable, how will she get food, etc. These questions were answered to the best of CM ability. Emma has already been in touch with [facility] regarding family's concerns. Emma plans to meet Shea at the rehab when she transfers. She was encouraged to ask to speak to Gabriela at [facility] for advice on re-enrolling in Medicare. These concerns were passed on to [facility] by CM. Shea will be followed by palliative care at the facility, and will likely transition to hospice. Family was appreciative of the time spent. Discharge Potential Discharge Needs: Consult Consult Services Needed: Palliative and Other (facilty provider f/u) Anticipated Barriers to Discharge: None Identified Patient/Family Education Needs: Review discharge instructions, discuss Ask Me Three Transportation: [facility] Transportation: Wheel chair van Plan: Shea will transfer to [facility] tomorrow. She will transport via [facility] wheelchair van and continue per her plan of care. CM will continue to follow. Social Determinants of Health Screening Will the Patient Participate in the Screening?: Declined to provide In the past 12 months, have you had to go without electric, gas, oil or water in your home?: no Has lack of transportation kept you from medical appointments or from doing things needed for daily living?: no Has anyone in your life made you feel unsafe or unsupported?: no How hard is it for you to pay for the very basics like food, housing, medical care, and heating? Would you say it is:: Not hard at all If for any reason you need help with day-to-day activities such as bathing, preparing meals, shopping, managing finances, etc., do you get the help you need?: I get all the help I need How often do you feel lonely or isolated from those around you?: Never Do you speak a language other than South Korean at home?: No
--- NOTE | 2025-03-28 13:51 | W.PM.PROGNOT ---
Date of Service Date of service: 03/28/25 Time of Service: 08:00 Assessment and Plan Assessment and plan (1) Breast cancer: Status: Chronic Assessment and plan: Appreciate palliative care evaluation Patient has weeks to live per oncology, no further treatment planned (2) Cancer related pain: Status: Acute Assessment and plan: Headaches, foot pain and sacral pain. She has had relief with gabapentin and dilaudid Continue gabapentin and dilaudid (3) Comfort measures only status: Status: Acute Assessment and plan: Pain management [facility] will take her on Saturday if appropriate Added PRN lorazepam. Patient does not want morphine due to previous bad experience. Subjective Subjective Interval history since last seen: Mrs. Verma is more tired and has some confusion today. Her friend has returned to [place]. Multiple family members at bedside. Exam Narrative Exam Narrative: General: This is a pleasant, chronically ill-appearing woman in no distress HEENT: Normocephalic, atraumatic. Unable to maintain upright head position due to esophageal/thyroid surgeries. CV: RRR Resp: CTAB Abd: soft, NTND MSK: voluntary motion x4 Neuro: awake, alert, no focal deficits Objective Last Vital Signs Temp 36.5 C 03/28/25 08:57 Pulse 108 H 03/28/25 08:57 Resp 20 03/28/25 09:14 BP 123/89 03/28/25 08:57 Pulse Ox 91 L 03/28/25 09:55 Time Spent with Patient Time Spent with Patient: 25-34 minutes Time was spent: preparing to see the patient(eg.review tests), obtaining and/or reviewing separately otained hiistory, ordering medications,tests, procedures, referring, communicating with other health customer care team coach, indepentently interpreting results, counseling the patient and care coordination
[2025-03-28] MEDS: Lidocaine 5% Patch 2 PATCH TP (14:15)
[2025-03-28 21:00] VITALS: O2SAT 96
[2025-03-28] MEDS: DEXTROSE 5%-0.45% SALINE 1,000 ML 100 ML IV (21:16)
[2025-03-29] MEDS: HYDROmorphone 2 MG/ML SYR 1 MG IVP ×3 (00:44→20:02)
[2025-03-29] MEDS: Patch Removal 2 EACH TP (02:39)
[2025-03-29] MEDS: DEXTROSE 5%-0.45% SALINE 1,000 ML 100 ML IV (06:42)
--- NOTE | 2025-03-29 07:15 | W.PALPGNOTE ---
Date of service: 03/29/25 Time of Service: 07:15 Assessment and Plan Assessment and plan (1) Comfort measures only status: Status: Acute (2) Palliative care patient: Status: Acute (3) Advanced care planning/counseling discussion: Status: Acute Assessment and plan: Unfortunately her family was not available when I visited. We discussed IV fluids. She will try to drink more. I did speak to the [facility] team and they will offer her p.o. fluids often Pain seems well-controlled. She did not have shortness of breath during my visit with her. She will be followed by the palliative team when she returns to health [facility] rehab Subjective Subjective Interval history since last seen: Shea is lying in her bed. She is awake and alert. She states that she is ready but that her family is not. The plan is for her to go back to health and rehab today. She is getting IV fluids and does feel that it has helped her some to enable her to drink on her own. She knows she cannot have IV fluids at home or at health and rehab. She states that she has her affairs in order. She does not have any pain or other discomfort. Nursing states that in the last 24 hours she has not needed anything for pain or nausea. She has had some air hunger but declined morphine. Exam Narrative Exam Narrative: Shea seems alert although she closed her eyes sometimes during our conversation. Her heart is regular. Abdomen was not tender. She does have 1+ edema. She has IV fluids running. She answered my questions clearly Objective Last Vital Signs Temp 97.7 F 03/28/25 08:57 Pulse 108 H 03/28/25 08:57 Resp 20 03/28/25 09:14 BP 123/89 03/28/25 08:57 Pulse Ox 96 03/28/25 21:00
[2025-03-29] MEDS: Normal Saline Flush 10 ML SYR IVP ×2 (07:59→20:02)
[2025-03-29] MEDS: Fluticasone NASAL SPRAY 16 GM BTL NS ×2 (07:59→20:04)
[2025-03-29] MEDS: Lactated Ringers 500 ML IV (08:34)
--- NOTE | 2025-03-29 08:45 | PDOC.CMPRO ---
Date of service: 03/29/25 Time of Service: 08:45 Care Management Progress Note Progress Note Text Progress Note Text: Shea is not doing great today, and it was decided that she will not transfer to [facility] Living at this time. Palliative care was in early this morning, but family was not present. Palliative will be returning this afternoon. During the day, it was revealed that Shea was to be admitted to hospice today if she was at [facility]. Family and Shea are thinking that they may want Shea to stay at [facility] for comfort care, as opposed to transfer to [facility]. Palliative care will be in again this afternoon to talk with the family and Shea. CM has met with the family several times today for support and to answer questions. Shea's disposition will be determined after her meeting with Dr. Munroe. When MAXINE met with Shea, her sister was reading her a favorite book that she used to read to her as child. It was really quite a beautiful scene. Shea looked comfortable, and the sisters had some very loving words and spoke of some memories. Discharge Potential Discharge Needs: Consult (oncology and infectious disease) Anticipated Barriers to Discharge: Medical Status Patient/Family Education Needs: Review discharge instructions, discuss Ask Me Three Transportation: EMS (if transfers to [facility]) Plan: Shea will likely stay at [facility] for comfort care, but it is still a bit unsure at this time. The plan will become more clear after the meeting with Dr. Munroe. CM will continue to follow, support Shea and her family, and update the plan as needed. Social Determinants of Health Screening Will the Patient Participate in the Screening?: Declined to provide In the past 12 months, have you had to go without electric, gas, oil or water in your home?: no Has lack of transportation kept you from medical appointments or from doing things needed for daily living?: no Has anyone in your life made you feel unsafe or unsupported?: no How hard is it for you to pay for the very basics like food, housing, medical care, and heating? Would you say it is:: Not hard at all If for any reason you need help with day-to-day activities such as bathing, preparing meals, shopping, managing finances, etc., do you get the help you need?: I get all the help I need How often do you feel lonely or isolated from those around you?: Never Do you speak a language other than Uzbek at home?: No
--- NOTE | 2025-03-29 13:53 | PGE_ITS ---
Date of Service Date of service: 03/29/25 Time of Service: 08:00 Assessment and Plan Assessment and plan (1) Breast cancer: Status: Chronic Assessment and plan: Appreciate palliative care evaluation Patient has weeks to live per oncology, no further treatment planned (2) Cancer related pain: Status: Acute Assessment and plan: Headaches, foot pain and sacral pain. She has had relief with gabapentin and dilaudid Continue gabapentin and dilaudid (3) Comfort measures only status: Status: Acute Assessment and plan: Pain management [facility] will take her on Saturday if appropriate Added PRN lorazepam. Patient does not want morphine due to previous bad experience. Subjective Subjective Interval history since last seen: Mrs. Verma was very fatigued this morning, but had enough energy to eat a sandwich at lunchtime. She is continuing to express interest in getting better so that she can travel for more oncology care. Exam Narrative Exam Narrative: General: This is a pleasant, chronically ill-appearing woman in no distress HEENT: Normocephalic, atraumatic. Unable to maintain upright head position due to esophageal/thyroid surgeries. CV: RRR Resp: CTAB Abd: soft, NTND MSK: voluntary motion x4 Neuro: awake, alert, no focal deficits Objective Last Vital Signs Temp 36.5 C 03/28/25 08:57 Pulse 108 H 03/28/25 08:57 Resp 20 03/28/25 09:14 BP 123/89 03/28/25 08:57 Pulse Ox 96 03/28/25 21:00 Time Spent with Patient Time Spent with Patient: 25-34 minutes Time was spent: preparing to see the patient(eg.review tests), obtaining and/or reviewing separately otained hiistory, ordering medications,tests, procedures, referring, communicating with other health transition of care specialist, indepentently interpreting results, counseling the patient and care coordination
[2025-03-29] MEDS: Lidocaine 5% Patch 2 PATCH TP (14:37)
[2025-03-29] MEDS: Ondansetron O.D.T. 4 MG TABEF PO (14:46)
[2025-03-29] MEDS: Docusate Sodium 100 MG CAP PO (20:02)
[2025-03-29] MEDS: Dexamethasone 1 MG TAB 2 MG PO (20:02)
[2025-03-29] MEDS: Gabapentin 300 MG CAP PO (20:02)
[2025-03-30] MEDS: Normal Saline Flush 10 ML SYR IVP ×3 (02:44→19:50)
[2025-03-30] MEDS: HYDROmorphone 2 MG/ML SYR 1 MG IVP ×3 (02:45→13:25)
[2025-03-30] MEDS: Patch Removal 2 EACH TP (02:45)
[2025-03-30 05:22] VITALS: O2SAT 3
[2025-03-30] MEDS: Levothyroxine 100 MCG TAB PO (06:09)
[2025-03-30] MEDS: Pantoprazole 40 MG TABCR PO (07:29)
[2025-03-30] MEDS: Dexamethasone 1 MG TAB 2 MG PO ×2 (07:29→19:49)
[2025-03-30] MEDS: Docusate Sodium 100 MG CAP PO ×2 (07:29→19:50)
[2025-03-30] MEDS: Fluticasone NASAL SPRAY 16 GM BTL NS ×2 (07:29→19:50)
[2025-03-30] MEDS: Gabapentin 300 MG CAP PO ×3 (07:29→19:49)
[2025-03-30 09:14] VITALS: BP 124/94; PULSE 95; RESP 16; TEMP 36.2; O2SAT 97
--- NOTE | 2025-03-30 11:30 | DSE_ITS ---
Date of service: 03/30/25 Time of Service: 08:00 DS: Diagnosis Discharge Diagnosis (1) Breast cancer: Status: Chronic Asessment and Plan: Appreciate palliative care evaluation Patient has weeks to live per oncology, no further treatment planned Patient has an interest in going to a tertiary care center for additional oncology care, assuming she improves at rehab (2) Cancer related pain: Status: Acute Asessment and Plan: Headaches, foot pain and sacral pain. She has had relief with gabapentin and dilaudid Continue gabapentin and dilaudid (3) Comfort measures only status: Status: Resolved Asessment and Plan: Patient does not want to be on comfort care. Discharge Plan Disposition Patient Disposition: Assisted Facility(SNF) Condition: Poor Discharge Details Reason For Visit: Metastatic Cancer Pain Admit Date/Time: 03/26/25 17:00 Admit Provider: Augusto Callahan Attending Provider: Augusto Callahan Primary Care Provider: Kayleigh [facility] Hospital Course: Shea Verma is a 65 year old woman presenting March 26 with weakness and inability to care for herself. Patient has breast cancer with brain metastases. She was evaluated for admission at [facility], and was sent in due to her poor condition. Palliative care evaluated patient, confirmed DNR status, and recommended admission for comfort care. At this time, patient has chosen to move to rehab for strengthening and ongoing care; she would like to heal and pursue more treatment. Home Meds and New Rx's Prescriptions: New gabapentin 300 mg Capsule 300 mg PO TID Qty: 0 0RF Continued lorazepam 1 MG tablet 1 mg PO PRN PRN (Reason: Anxiety) prochlorperazine maleate 10 mg tablet 10 mg PO Q6H PRN (Reason: nausea and vomiting) Qty: 6 0RF Rx Instructions: Hospice Patient hyoscyamine sulfate 0.125 mg tablet,disintegrating 0.125 - 0.25 mg PO Q4H PRN (Reason: secretions) Qty: 24 0RF Rx Instructions: Hospice Patient lorazepam 1 mg tablet 1 mg PO Q4H PRN (Reason: anxiety, LOWERY or nausea) Qty: 6 5RF Rx Instructions: Hospice Patient ondansetron 8 mg tablet,disintegrating 8 mg PO Q8H PRN Patient Comments: DISSOLVE ONE TABLET ON THE TONGUE EVERY 8 HOURS NEEDED FOR NAUSEA dexamethasone 2 mg tablet 2 mg PO BID Patient Comments: TAKE ONE TABLET BY MOUTH TWICE A DAY WITH MEALS fluticasone propionate 50 mcg/actuation spray,suspension 1 spray INTRANASAL BID Patient Comments: USE ONE SPRAY INTO BOTH NOSTRILS TWO TIMES A DAY. USE AFTER NASAL SALINE levothyroxine 100 mcg tablet 100 mcg PO QAM Patient Comments: TAKE ONE TABLET BY MOUTH EVERY MORNING 30 MIN. PRIOR TO EATING pantoprazole 40 mg tablet,delayed release (DR/EC) 40 mg PO DAILY Patient Comments: TAKE ONE TABLET BY MOUTH EVERY DAY WHILE TAKING DEXAMETHASONE cyclobenzaprine 5 mg tablet 5 mg PO TID PRN Patient Comments: TAKE ONE TABLET BY MOUTH THREE TIMES A DAY NEEDED naproxen sodium [Aleve] 220 mg capsule 220 mg PO BID PRN docusate sodium [Col-Rite] 250 mg capsule 250 mg PO DAILY Discontinued acetaminophen 650 mg suppository 650 mg GA Q6H PRN (Reason: fever, mild pain) Qty: 6 0RF Rx Instructions: Hospice Patient morphine concentrate 100 mg/5 mL (20 mg/mL) solution See Rx Instructions PO Q1H PRN MDD 24 mL PRN (Reason: moderate to severe pain or shortness of breath) Qty: 30 0RF Rx Instructions: Give 0.25 mL for mild pain/SOB Give 0.5 mL for moderate pain/SOB Give 1 mL for severe pain/SOB orally every 1 hour, as needed PRN; Hospice Patient bisacodyl [Dulcolax (bisacodyl)] 10 mg suppository 10 mg GA daily PRN (Reason: constipation) Qty: 2 0RF Rx Instructions: Hospice Patient Insert 1 supp GA Daily PRN constipation (no BM in 3 days) acetaminophen [Mapap Extra Strength] 500 MG tablet 500 mg PO Q8H PRN Prevalite 4 gram Powder In Packet 1 packet PO 1000,1900 Qty: 60 0RF hydrocortisone [Anti-Itch (HC)] 1 % cream 1 applic topical QID PRN Discharge Instructions Activity:: Activity as Tolerated Equipment/Supplies:: No Equipment Needed Diet:: As Tolerated DS: Summary Time Spent with Patient providing and/or coordinating discharge services: Less than 30 minutes Status at Discharge Functional status at discharge: uses cane/walker Overall status at discharge: patient is not back to baseline Mental Status: mental status grossly normal Speech and Movement: speech and movement normal Mood: congruent mood Affect: normal affect Exam Narrative Exam Narrative: General: This is a pleasant, chronically ill-appearing woman in no distress HEENT: Normocephalic, atraumatic. Unable to maintain upright head position due to esophageal/thyroid surgeries. CV: RRR Resp: CTAB Abd: soft, NTND MSK: voluntary motion x4 Neuro: awake, alert, no focal deficits Psych Mental Status: mental status grossly normal Speech and Movement: speech and movement normal Mood: congruent mood Affect: normal affect DS: Data Vitals/I&O Vitals and I&O: Vital Signs Temperature 36.2 C L 03/30/25 09:14 Temperature Source Temporal Artery Scan 03/30/25 09:14 Pulse 95 H 03/30/25 09:14 Pulse 98 H 03/26/25 18:20 Respiratory Rate 16 03/30/25 09:14 Respiratory Effort Normal, Non-Labored 03/26/25 21:23 Respiratory Depth Normal 03/26/25 21:23 Respiratory Pattern Normal 03/26/25 21:23 Blood Pressure 124/94 H 03/30/25 09:14 Blood Pressure Mean 104 03/30/25 09:14 Pulse Oximetry 97 03/30/25 09:14 Oxygen Delivery Method Nasal Cannula 03/30/25 09:14 Oxygen Flow Rate 3 03/30/25 09:14 Pain Level 5 03/29/25 20:02 Comment pT states NC removed due to discomfort; no SOB at this time 03/28/25 09:55 Intake & Output 03/29/25 03/29/25 03/30/25 11:59 23:59 11:59 Intake Total 603.333 / 673.333 70 / 673.333 20 20 Output Total 100 / 450 350 / 450 300 / 300 Balance 503.333 / 223.333 -280 / 223.333 -280 / -280 Intake: IV 603.333 / 623.333 20 / 623.333 20 / 20 Oral 50 / 50 Output: Urine 100 / 450 350 / 450 300 / 300 Other: Urine Color Chambers Brown Brown Dark Red Dark Red Urine Appearance Cloudy Sediment Sediment Sediment Mucous Threads Purulent Hematuria Hematuria Comment clogged,lezking Data Completed and Pending Pending Labs at Discharge: 03/26/25 03/26/25 03/27/25 14:48 19:53 03:59 WBC 4.94 RBC 5.60 H Hgb 15.4 Hct 47.0 H MCV 84 MCH 27.5 MCHC 32.8 RDW 20.0 H Plt Count 142 MPV 10.1 Sodium 141 Potassium 3.9 Chloride 101 Carbon Dioxide 28.3 Anion Gap 11.7 H BUN 19 H Creatinine 0.7 Est GFR (CKD-EPI 2020) 95.92 Glucose 92 Calcium 9.2 Total Bilirubin 1.0 AST 63 H ALT 111 H Alkaline Phosphatase 124 H Total Protein 7.3 Albumin 3.4 TSH 1.32 Urine Color Yellow Urine Clarity Sl Cloudy Urine pH 8.5 H Ur Specific [place] 1.015 Urine Protein 100 H Urine Ketones 80 H Urine Blood Large H Urine Nitrite Negative Urine Bilirubin Small H Urine Urobilinogen 0.2 Ur Leukocyte Esterase Large H Urine RBC 10-20 H Urine WBC >50 H Ur Epithelial Cells Few Urine Crystals Negative Urine Bacteria Moderate Urine Casts Negative Urine Mucus Negative Ur Culture Indicated? Yes Urine Glucose Negative COVID-19 Source Nasopharynx SARS-CoV-2 (PCR) Negative Influenza Type A (PCR) Negative Influenza Type B (PCR) Negative RSV (PCR) Negative Preliminary micro results at discharge 03/27/25 03:59 Urine - Reflex from Ua Urine Culture - Preliminary Proteus species PFSH All Active Problems (Updated 03/30/25 @ 11:32 by Augusto Callahan MD) Advanced care planning/counseling discussion (Acute) Palliative care patient (Acute) Cancer related pain (Acute) Metastasis to brain (Acute) Admission for palliative care (Acute) Debility (Acute) Pneumonia (Acute) Dyspnea (Acute) Colitis (Acute) Diarrhea (Acute) Acute hypokalemia (Acute) Acute dehydration (Acute) Discharge planning issues (Acute) DVT prophylaxis (Acute) Back pain (Acute) Atrial fibrillation (Chronic) C. 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 [place]'s disease GERD (gastroesophageal reflux disease) Hyperlipidemia Prediabetes History of thyroid cancer BMI 35.0-35.9,adult Allergic rhinitis Pneumonia Malaise and fatigue Rosacea Acute cystitis Surgical History History of partial hysterectomy H/O colonoscopy (~08/10/22) H/O esophagogastroduodenoscopy History of laryngoplasty Hx of cholecystectomy Hx of thyroidectomy Social History Smoking/Tobacco Use Status: Former Tobacco Use Quit Date: 06/03/83 Smoking risk assessment performed?: Yes Alcohol Intake: current Alcohol Intake frequency: a few times a month Drug use: Rarely Substance use type: marijuana Details: marijuana inh t-2 Housing: apartment Do you feel safe at home: Yes Do you feel safe in your relationship?: Yes Time Spent with Patient Time Spent with Patient: <45 minutes Time was spent: preparing to see the patient(eg.review tests), obtaining and/or reviewing separately otained hiistory, ordering medications,tests, procedures, referring, communicating with other health infant childcare provider, indepentently interpreting results, counseling the patient and care coordination
[2025-03-30] MEDS: Ondansetron 4 MG/2 ML VIAL IVP (13:25)
[2025-03-30] MEDS: Lidocaine 5% Patch 2 PATCH TP (13:25)
--- NOTE | 2025-03-30 13:35 | CHAPLAIN ---
Shea was up in a chair when I visited. Her brother in law and another person were with her. She like the prayer shawl I brought to her. Shea thought she remembered me from [facility] but it's been several years since I did a Clinical Pastoral Education unit oncology at [facility]. Shea told me that she is set with her kole. I let her know that there is always a customer account administrator available if she wanted company. According to Care Management and Palliative Care notes, Shea was taken care of by a friend until recently. She was to be admitted to [facility] yesterday, but went from there to the ED and then was admitted. Shea and her family and deciding if she'll stay here or be admitted to the [facility]. Dr. Munroe from Palliative Care met with Shea this morning and will return for another visit this afternoon. According to Dr. Munroe's note, Shea is comfortable with going on hospice, but doesn't think her family is ready for the end of her life. She told Dr. Munroe she is not afraid of dying. She had a near experience, and believes she will see loved ones again. At the same time, she said she is still hoping for a miracle to extend her life.
--- NOTE | 2025-03-30 14:23 | PHACLINREV_ITS ---
Pharmacy Admission Review Admission Clinical Review Admission Pharmacy Review: Advanced care planning/counseling discussion (Acute) Palliative care patient (Acute) Cancer related pain (Acute) Metastasis to brain (Acute) Admission for palliative care (Acute) Debility (Acute) etodolac (From [place]) Allergy (Unverified 03/05/25 10:55) swelling of hands Sulfa (Sulfonamide Antibiotics) Allergy (Unverified 03/05/25 10:55) rash, hand/arm swelling latex Adverse Reaction (Intermediate, Unverified 03/05/25 10:55) Hives ciprofloxacin (From Cipro) Adverse Reaction (Unverified 03/05/25 10:55) N/V ciprofloxacin HCl (From Cipro) Adverse Reaction (Unverified 03/05/25 10:55) N/V Resuscitation Status DNR/DNI Height 5 ft 4 in Weight 81.64 kg Pharmacy Admission Review Renal Dosing Renal Dosing: BUN 19 mg/dL (7-18) H 03/26/25 14:48 Creatinine 0.7 mg/dL (0.55-1.02) 03/26/25 14:48 Medications needing adjustments: Reviewed (CrCl 57.97 mL/min) List of meds needing interventions: Current medications are okay Anticoagulation Anticoagulation: Hgb 15.4 g/dL (11.2-15.7) 03/26/25 14:48 Hct 47.0 % (36.0-46.0) H 03/26/25 14:48 Plt Count 142 10^3/uL (130-400) 03/26/25 14:48 Creatinine 0.7 mg/dL (0.55-1.02) 03/26/25 14:48 DVT Prophylaxis: Intervened (none at this time, reached out to provider - waiting to hear back) Opiate Usage Evaluate Pain Scale/Pains Meds: Reviewed (hydromorphone 1mg IVP q4h PRN - 4mg/24hrs) Scheduled Bowel Reg ordered if on Opiates?: Yes (docusate BID) Relevant Labs Relevant Labs: Sodium 141 mmol/L (136-145) 03/26/25 14:48 Potassium 3.9 mmol/L (3.5-5.1) 03/26/25 14:48 Chloride 101 mmol/L (98-107) 03/26/25 14:48 Electrolytes, C-Reactive P, ESR: Reviewed (No new labs for today) Cardiac Review BP, HR, EF%: Reviewed (BP 124/94, HR 95, Oxygen flow rate = 3) QTc Review QTc: Reviewed (435 from 03/26/25) IV to PO Switch IV Medications: Reviewed (hydromorphone and ondansetron) Home Meds Home Med List reviewed: Reviewed Relevent Home Meds Not ordered & why?: cyclobenzaprine (PRN), hyoscyamine (PRN), naproxen (PRN) and prochlorperazine (PRN) Current Meds Current Medication Order Review: Reviewed Comments: status is currently SOCIAL MEDIA ANALYST but per provider this may be changing Pharmacy Antibiotic Review Relevant Labs: WBC 4.94 10^3/uL (4.4-10.8) 03/26/25 14:48 Temperature 36.2 C Microbiology 03/27/25 03:59 Urine Culture - Final Urine - Reflex from Ua Proteus mirabilis Organism 1 Proteus mirabilis COLONY COUNT >100,000 COLONIES/ML Prot julienne Result Ampicillin R Ampicillin/Sulbactam I Cefazolin R Ceftazidime S Ceftriaxone S Ciprofloxacin S Gentamicin S Nitrofurantoin R Trimethoprim/Sulfamethoxazole R Piperacillin/Tazobactam S Meropenem S Pharmacy Antibiotic Activity: C/S review and Reviewed, no change Comments: Patient is on cefdinir, day 1, for UTI.
--- NOTE | 2025-03-30 15:05 | PDOC.CMPRO ---
Date of service: 03/30/25 Time of Service: 15:42 Care Management Progress Note Progress Note Text Progress Note Text: MAXINE met with Shea, who was sitting up in a chair with oxygen via nasal cannula. She was noted to hold her head tilted toward the left side. Upon CM’s arrival, Sister Emma and Niece Eleanor requested to meet separately to avoid upsetting Shea. Later, Emma’s brother joined the meeting. During the discussion, Emma expressed that she and other family members wish for Shea to remain at [facility] for comfort care. She stated that staff had informed them yesterday that this would be possible. Per Dr. Munroe, however, the patient is not currently imminent. The family expressed a desire for Shea to be placed on hospice and to receive 24-hour care at the hospital. CM provided education regarding hospice levels of care and explained that [facility] does not serve as a long-term or 24-hour caregiving facility for hospice patients. CM reviewed hospice respite services and alternative care options, emphasizing that hospice care is typically provided either at home or within a group home facility setting. Emma also shared concerns regarding Shea’s long-term Medicaid application, under which she had been accepted to [facility] pending final approval. Emma expressed worry that a “spend down” might be required, which she believes could present a barrier to discharge to [facility]. As in prior discussions, Emma was encouraged to speak directly with Gabriela at [facility] for guidance on re-enrollment in Medicare. A [place] [facility] Aging pamphlet was provided as an additional resource for insurance information. Per communication with Melisa at [facility], Shea continues to have a bed offer under her pending long-term Medicaid. The facility anticipates a future hospice admission, as previously discussed with the patient. Melisa reported that the family has visited the facility multiple times with questions and stated that [facility] cannot accept the patient until all family questions and concerns have been addressed. MAXINE communicated the delay in admission to Home Health who anticipated the Hospice admission for today. MAXINE later spoke with Shea privately. When asked about her goals of care, Shea stated she wishes to go to [facility] for hospice rather than short-term rehabilitation. However, when asked about her understanding of the discontinuation of cancer treatments under hospice care, Shea appeared confused. During continued discussion of discharge options, she expressed that she was unaware hospice care limits ongoing cancer treatments. CM recommends continued palliative care discussions to further clarify goals of care; CM communicated this request to palliative care. Shea has expressed a desire for hospice involvement to manage pain and symptoms but also wishes to continue cancer treatments. Her goals of care remain unclear at this time and should be revisited. Dr. Munroe, Palliative Care, and the Hospitalist have been updated. The Patient Experience Officer was also notified of the situation. Shea is medically ready for discharge. It is anticipated she will remain at [facility] overnight, with a possible discharge to [facility] tomorrow following palliative care follow-up. CM will continue to monitor and support discharge planning. Discharge Potential Discharge Needs: Consult Consult Services Needed: Palliative Anticipated Barriers to Discharge: Other (Goals of care) Patient/Family Education Needs: Review discharge instructions, discuss Ask Me Three Transportation: Other (EMS) Plan: Shea's discharge plan is unclear at this time. Anticipate a continuation of discharge planning following a palliative care f/u. CM will continue to follow. Social Determinants of Health Screening Will the Patient Participate in the Screening?: Declined to provide In the past 12 months, have you had to go without electric, gas, oil or water in your home?: no Has lack of transportation kept you from medical appointments or from doing things needed for daily living?: no Has anyone in your life made you feel unsafe or unsupported?: no How hard is it for you to pay for the very basics like food, housing, medical care, and heating? Would you say it is:: Not hard at all If for any reason you need help with day-to-day activities such as bathing, preparing meals, shopping, managing finances, etc., do you get the help you need?: I get all the help I need How often do you feel lonely or isolated from those around you?: Never Do you speak a language other than Indonesian at home?: No
[2025-03-30] MEDS: LORazepam 1 MG TAB PO ×2 (17:21→20:18)
[2025-03-30] MEDS: Enoxaparin 40 MG/0.4 ML SYR SC (19:50)
[2025-03-30] MEDS: Cefdinir 300 MG CAP PO (19:52)
[2025-03-31] MEDS: Levothyroxine 100 MCG TAB PO (06:36)
[2025-03-31] MEDS: Dexamethasone 1 MG TAB 2 MG PO ×2 (08:14→21:01)
[2025-03-31] MEDS: Docusate Sodium 100 MG CAP PO ×2 (08:14→21:01)
[2025-03-31] MEDS: Cefdinir 300 MG CAP PO ×2 (08:14→21:01)
[2025-03-31] MEDS: Gabapentin 300 MG CAP PO ×3 (08:15→21:01)
[2025-03-31] MEDS: Pantoprazole 40 MG TABCR PO (08:15)
[2025-03-31] MEDS: Normal Saline Flush 10 ML SYR IVP (08:16)
[2025-03-31] MEDS: Fluticasone NASAL SPRAY 16 GM BTL NS ×2 (10:14→21:09)
--- NOTE | 2025-03-31 10:30 | W.PALLCONSUL ---
Date of service: 03/31/25 Time of Service: 11:30 History of Present Illness Narrative: Ms. Valdivia is a 65 y/o F who remains hospitalized pending discharge plan; PC diagnosis of breast cancer w/mets to brain; sister Tootie and niece Jess provide most of history Shea was dx w/thyroid cancer in 2021, consider curative post thyroidectomy; dx breast cancer in October 2022, s/p mastectomy, chemo started November 2022, found metastasis to brain in January, had brain tumor resection 01/28/25 and now s/p whole brain radiation, was told stage 4 cancer in Feb; - her decline became most noticeable around a month a go after her radiation; w/increased weakness, difficulty w/LS weakness and RS loss of ROM requiring assistance w/transfers, eating, personal care; she has been requiring assistance w/ADLs x3 weeks; she has had increased dyspnea w/hypoxia starting around 3 wks ago, got supplemental O2 at home w/good effect; she has had a low to no appetite during this time, nutrition limited; - yesterday she had a good day, she rallied quite a bit, improved activity and appetite; - she was reunited w/her brother yesterday after a long time of estrangement, this was a big deal Pain: constant, is getting some relief w/Dilaudid 2mg IVP, has received two doses in last 24 hrs; this makes her sleepy, she would prefer to be sleepy vs uncontrolled pain Resp: difficulty breathing, ongoing for around 3 weeks w/some hypoxia at home, started using O2 in home up to 3L, has started needing it during this hospitalization; breathing has been shallow and tachypnic; she feels she is getting good relief w/supplemental O2; - allergy to morphine w/rash previously, preference to avoid retrial of med Appetite: has been struggling lately, is working hard today to stay hydrated; motivated to eat as much as she can, improved motivation last couple of days Activity: has not been OOB today, however yesterday was up w/2person assist using walker to recliner, spent lots of day in recliner; previously was spending increased time in bed w/inability to walk/transfer unassisted BM: no recent BMs, using bed tracey PRN; prunes work best for her at home, miralax w/no effect when tried; no discomfort, bloating, nausea today Urine: continues to make urine, Dougherty catheter d/t incontinence MH: has been having increased dreams lately, involving babies there to help her transition, more visions of her grandfather in dreams; increased difficulty w/word finding, increased disorientation w/waking and difficulty using phone; these things make her agitated; lorazepam w/good effect Social: recently was living w/close friend Tootie Driver whom came from [place] to help take care of Shea; Tootie has returned home; Shea gave Tootie her car and other personal belongings, including her cat, in attempts to start redistributing her things prior to her ; supported by sister Tootie, her two nieces Eleanor and Jess - reunited w/brother after estrangement as above, yesterday Financial: previously submitted application for LTM, pending spend down will be approved; currently enrolled in community [employer] and needs a spend down to remain enrolled; has limited money ACP: Shea's goal is to get stronger, to get stronger she knows she needs to eat more and increase her activity; she does not want to give up and wants to try to regain ability; she would like more air, which she qualifies as fresh air outside of hospital; - she wants to maintain hope that she may be eligible for additional cancer treatments if she gets stronger, is aware she isn't eligible for treatments in current condition; wants to consider to engage, potentially in clinic in [facility] that her friend mentioned to her - she knows she needs more wrap around care than she can receive not in a rehab community and feels motivated to do what she can do to get stronger today Assessment and Plan Assessment and plan (1) Breast cancer: Status: Chronic Assessment and plan: oncology Dr Torres reviewed 4 wks ago she had a life expectancy of weeks, no further treatment options - s/p mastectomy 2022, chemotherapy, brain tumor resection, whole brain radiation - rapid decline over previous month - aware not eligible for treatments at this time d/t weakness would want to consider referral/engagement w/brain cancer clinic in [facility] if she were stronger (2) Cancer related pain: Status: Acute Assessment and plan: recommend Dilaudid 2mg PO q1h PRN, recommend trial PO and patch prior to discharge pending hospice admission delay - would recommend fentanyl patch vs cadd pump post hospice admission (3) Metastasis to brain: Status: Acute Assessment and plan: s/p resection and whole brain radiation - Shea continues to demonstrate she has capacity at this time (4) Dyspnea: Status: Acute Assessment and plan: d/t morphine adverse reaction would recommend Dilaudid for dyspnea if supplemental O2 not relieving dyspnea - may trial lower dose of 1mg if 2mg dose effective recommended have fan in room blowing air across face (5) Discharge planning issues: Status: Acute Assessment and plan: previously referred and accepted for shelter bed at [facility] will plan for discharge there tomorrow w/hospice admission for Saturday - discharge delayed d/t pt preference (6) Comfort measures only status: Status: Resolved Assessment and plan: remains on GEOGRAPHICAL HISTORIAN status, w/personal goal of improving strength through oral hydration/nutrition and engaging in therapies to improve activity; she is aware she is in control of that engagement and she does not have to if she does not want to - recommend pain medications as above, consider fent patch prior to discharge tomorrow for anticipated shelter pain, may be started at [facility] if needed pending pain control overnight - lorazepam 0.5mg oral q1h PRN (7) Palliative care patient: Status: Acute Assessment and plan: PC will anticipate transition to hospice on discharge - continue to follow if needed pending changes in care plan - life expectancy is days to weeks, though anticipate her status may change rapidly in the coming days (8) Advanced care planning/counseling discussion: Status: Acute Assessment and plan: reviewed current POC, pros/cons, barriers, etc in depth w/[facility] and niece; 1. pursue active treatment/[facility] referral 2. undecided 3. Focus on QoL and comfort; provided written documentation of flow sheet for their review reviewed w/Shea her stated goals today: get stronger through improving oral intake, activity engagement, need for sxs management to support these goals; her preference is to try to get stronger w/support of [facility] and hospice; she does want to maintain hope and be given opportunities to improve strength through encouraging her/providing her opportunities to get up out of bed and participate in care, family is supportive of this and willing to help any way they can reviewed financial barriers w/prolonged decision deferment on discharge plan and insurance coverage; LTM application complete, staff at [facility] will continue to work w/family on spend down and application status Shea has been consistent w/her stated recent goals of getting stronger through improving oral intake and activity, she is aware that easiest way to get the care she needs is discharge to a pen[facility]iary w/hospice supports, but does not want to lose hope, please support this goal for her. She is aware she is not eligible for treatments at this time spent 45m w/ACP Review of Systems Narrative: as per HPI PFSH All Active Problems Advanced care planning/counseling discussion (Acute) Palliative care patient (Acute) Cancer related pain (Acute) Metastasis to brain (Acute) Admission for palliative care (Acute) Debility (Acute) Pneumonia (Acute) Dyspnea (Acute) Colitis (Acute) Diarrhea (Acute) Acute hypokalemia (Acute) Acute dehydration (Acute) Discharge planning issues (Acute) DVT prophylaxis (Acute) Back pain (Acute) Atrial fibrillation (Chronic) C. 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 GERD (gastroesophageal reflux disease) Hyperlipidemia Prediabetes History of thyroid cancer BMI 35.0-35.9,adult Allergic rhinitis Pneumonia Malaise and fatigue Rosacea Acute cystitis Surgical History History of partial hysterectomy H/O colonoscopy (~08/10/22) H/O esophagogastroduodenoscopy History of laryngoplasty Hx of cholecystectomy Hx of thyroidectomy Social History Smoking/Tobacco Use Status: Former Tobacco Use Quit Date: 06/03/83 Smoking risk assessment performed?: Yes Alcohol Intake: current Alcohol Intake frequency: a few times a month Drug use: Rarely Substance use type: marijuana Details: marijuana inh t-2 Housing: apartment Do you feel safe at home: Yes Do you feel safe in your relationship?: Yes Exam Narrative Exam Narrative: General: frail, ill appearing older than stated age 65 y/o F, lying in hospital bed, initially resting throughout brief bedside visit, re-engages later, lethargic HEENT: hearing grossly WNL, alopecia, MMM, normocephalic, atraumatic Resp: tachypnic, shallow w/accessory muscle use, paradoxical; speech limited to 2-4 sentences; no cough or audible wheeze Psych: cooperative, speech clear, guarded, illogical, loose association, insight/judgment limited Results Last Vital Signs Temp 97.2 F L 03/30/25 09:14 Pulse 95 H 03/30/25 09:14 Resp 16 03/30/25 09:14 BP 124/94 H 03/30/25 09:14 Pulse Ox 97 03/30/25 09:14 Labs 03/26/25 14:48 03/26/25 14:48 Time Spent Time Spent with Patient Time Spent(min): 75
--- NOTE | 2025-03-31 12:40 | W.NUTRFU ---
Date of service: 03/31/25 Time of Service: 12:40 Nutrition Note NOTE: have been visiting with Shea and visiting family over the last few days. Comfort measures noted and staff offering comfort cart to family as well as any appropriately textured foods and fluids to Shea - mostly has been taking Dorothea CIB frappes at meals and we try to entice with other options as well. No aggressive nutrition intervention planned at this time. Will continue to support her desired intake and provide family with some nourishments Time Spent in Nutritional Counseling and Treatment: 10 min
--- NOTE | 2025-03-31 14:15 | CMPROGNOTE_ITS ---
Date of service: 03/31/25 Time of Service: 14:15 Care Management Progress Note Progress Note Text Progress Note Text: When CM attempted to meet with Shea, she was resting in bed and surrounded by family. Shea and her family met with the palliative care team earlier today (see documentation). Shea has decided to proceed with the current plan for discharge to [facility] tomorrow, with hospice admission scheduled for the following day; family and care team aware. Per palliative, hospice was contacted however, they were unable to accommodate a same-day admission; [facility] aware. Shea will be transported via EMS due to mobility. [facility] has been informed of the plan and has requested the palliative care documentation, which will be forwarded accordingly. CM will continue to follow. Discharge Potential Discharge Needs: Consult Consult Services Needed: Palliative Anticipated Barriers to Discharge: None Identified Patient/Family Education Needs: Review discharge instructions, discuss Ask Me Three Transportation: EMS Plan: Anticipate Shea will be discharged to [facility] tomorrow for intermodal dispatcher care with a following day admission to hospice; Melisa Calle and Gabriela Wick at [facility] notified and aware of this plan. Palliative care note will sent to [facility]. It is recommended she follow up with community providers and continue per her plan of care. She will transport via EMS due to mobility. CM will continue to follow. Social Determinants of Health Screening Will the Patient Participate in the Screening?: Declined to provide In the past 12 months, have you had to go without electric, gas, oil or water in your home?: no Has lack of transportation kept you from medical appointments or from doing things needed for daily living?: no Has anyone in your life made you feel unsafe or unsupported?: no How hard is it for you to pay for the very basics like food, housing, medical care, and heating? Would you say it is:: Not hard at all If for any reason you need help with day-to-day activities such as bathing, preparing meals, shopping, managing finances, etc., do you get the help you need?: I get all the help I need How often do you feel lonely or isolated from those around you?: Never Do you speak a language other than Georgian at home?: No
--- NOTE | 2025-03-31 14:23 | PGE_ITS ---
Date of Service Date of service: 03/31/25 Time of Service: 09:00 Assessment and Plan Assessment and plan (1) Breast cancer: Status: Chronic Assessment and plan: Appreciate palliative care evaluation Patient has weeks to live per oncology, no further treatment planned Anticipate discharge to rehab facility for hospice on Apr 01 (2) Cancer related pain: Status: Acute Assessment and plan: Headaches, foot pain and sacral pain. She has had relief with gabapentin and dilaudid Continue gabapentin and dilaudid (3) Comfort measures only status: Status: Resolved Assessment and plan: Pain management [facility] will take her on Saturday if appropriate Added PRN lorazepam. Patient does not want morphine due to previous bad experience. Subjective Subjective Interval history since last seen: Mrs. Verma continues to appear to be struggling to breathe at times but she reports that she has good energy today. Awaiting placement plans. Exam Narrative Exam Narrative: General: This is a pleasant, chronically ill-appearing woman in no distress HEENT: Normocephalic, atraumatic. Unable to maintain upright head position due to esophageal/thyroid surgeries. CV: RRR Resp: CTAB Abd: soft, NTND MSK: voluntary motion x4 Neuro: awake, alert, no focal deficits Objective Last Vital Signs Temp 36.2 C L 03/30/25 09:14 Pulse 95 H 03/30/25 09:14 Resp 16 03/30/25 09:14 BP 124/94 H 03/30/25 09:14 Pulse Ox 97 03/30/25 09:14 Time Spent with Patient Time Spent with Patient: 25-34 minutes Time was spent: preparing to see the patient(eg.review tests), obtaining and/or reviewing separately otained hiistory, ordering medications,tests, procedures, referring, communicating with other health director of home care hospice, indepentently interpreting results, counseling the patient and care coordination
[2025-03-31] MEDS: Lidocaine 5% Patch 2 PATCH TP (14:25)
--- NOTE | 2025-03-31 14:35 | CHAPLAIN ---
I was visiting with Shea and her sister Tootie and offered a prayer with them. Tootie talked about when Shea was born at [facility] and weighed only a couple of pounds. She was the family's miracle baby, Tootie said. Tootie was a senior in high school when Shea was born and Tootie said they grew up very close and Shea spent a lot of time with Tootie's family after Tootie was and had children. She said that Shea is also close to their brother, Prabhu, and to Tootie's two daughters. Nadia Pollock NP, from Palliative Care came in and spoke with Shea about her wishes. At t he end of the conversation the plan includes that Shea will be discharged to [facility] tomorrow on Hospice, with the goal of eating and drinking more, and gaining strength to possibly go to a cancer center in [place] or [place] for more treatments. Currently Shea is to weak for more treatments, Nadia explained, but if she gains strength she could go off hospice and pursue treatments. Tootie and another family member who arrived, said they would assist Shea with moving and walking around at [facility]. Nadia also discussed pain management. Yesterday when I met with Shea, she told me is set with her kole, and not afraid of dying. She also clearly wants to pursue efforts to continue living comfortably as long as possible.
[2025-03-31] MEDS: Acetaminophen 325 MG TAB 650 MG PO ×2 (14:58→21:10)
[2025-03-31] MEDS: Enoxaparin 40 MG/0.4 ML SYR SC (21:01)
[2025-03-31] MEDS: LORazepam 1 MG TAB PO (21:10)
[2025-03-31] MEDS: HYDROmorphone 2 MG TAB PO (21:10)
[2025-03-31] MEDS: Ondansetron O.D.T. 4 MG TABEF PO (21:17)
[2025-04-01] MEDS: LORazepam 1 MG TAB PO (04:02)
[2025-04-01] MEDS: Patch Removal 2 EACH TP (05:16)
[2025-04-01] MEDS: Levothyroxine 100 MCG TAB PO (05:16)
--- NOTE | 2025-04-01 07:54 | PDOC.CMDIS ---
Date of service: 04/01/25 Time of Service: 11:30 LACE Index Scoring Tool Questions: Length of Stay (in days): 4 - 6 Was the patient admitted via the E.D.?: Yes Comorbidities: Any Tumor E.D. Visits: 3 Answers: Total Score: 12 Risk of Readmission: High Risk Care Management Discharge Plan Reason for Hospitalization: Metastatic Cancer Pain Discharge Plan: Shea will be discharged to [facility] for group home care today with a following day admission to hospice; Melisa Calle and Gabriela Wick at [facility] notified, aware, and state they are agreeable to this plan. As requested by [facility], CM notified hospice that IV's cannot be managed by their facility. Palliative care note was previously sent to [facility] at their request. It is recommended she follow up with community providers and continue per her plan of care. She will transport via EMS due to mobility. Patient/Family Education Needs: Review of discharge instruction, activity, limitations, and plan of care. Discuss ask me three.
[2025-04-01] MEDS: Pantoprazole 40 MG TABCR PO (09:16)
[2025-04-01] MEDS: Gabapentin 300 MG CAP PO (09:16)
[2025-04-01] MEDS: Fluticasone NASAL SPRAY 16 GM BTL NS (09:17)
[2025-04-01] MEDS: Docusate Sodium 100 MG CAP PO (09:17)
[2025-04-01] MEDS: Dexamethasone 1 MG TAB 2 MG PO (09:17)
[2025-04-01] MEDS: Cefdinir 300 MG CAP PO (09:18)
[2025-04-01] MEDS: Acetaminophen 325 MG TAB 650 MG PO (09:20)
--- NOTE | 2025-04-01 12:14 | W.PM.DS.N ---
Date of service: 04/01/25 Time of Service: 12:14 DS: Diagnosis Discharge Diagnosis (1) Breast cancer: Status: Chronic (2) Cancer related pain: Status: Acute (3) Comfort measures only status: Status: Resolved Discharge Plan Disposition Patient Disposition: Assisted Facility(SNF) Condition: Poor Discharge Details Reason For Visit: Metastatic Cancer Pain Admit Date/Time: 03/26/25 17:00 Admit Provider: Augusto Callahan Attending Provider: Augusto Callahan Primary Care Provider: Kayleigh Chandler [facility] Hospital Course: Shea Verma is a 65 year old woman with breast cancer with brain metastases who presented March 26 with weakness and inability to care for herself. Palliative care evaluated patient, confirmed DNR status, and recommended admission for comfort care. She was started on gabapentin along with hydromorphone to help with cancer related pain. Oncology was consulted, who confirmed she has no further treatment planned, and she has a prognosis of weeks. She had urinary symptoms and urine grew proteus. She was treated with cefdinir orally starting 03/30 and should have 5 more days. Dougherty catheter was left in place due to limited mobility and comfort status. She was evaluated for admission at [facility]. She was initially prepped for discharge to SNF 03/30, but this was deferred due to patient preferrence. She . She was transferred 04/01 with a plan to transition to hospice care. Home Meds and New Rx's Prescriptions: New gabapentin 300 mg Capsule 300 mg PO TID Qty: 0 0RF acetaminophen 325 mg Tablet 650 mg PO Q4H PRN PRNQty: 30 0RF hydromorphone 2 mg Tablet 2 mg PO Q1H PRN PRNQty: 20 0RF cefdinir 300 mg Capsule 300 mg PO Q12H Qty: 10 0RF Continued lorazepam 1 MG tablet 1 mg PO PRN PRN (Reason: Anxiety) prochlorperazine maleate 10 mg tablet 10 mg PO Q6H PRN (Reason: nausea and vomiting) Qty: 6 0RF Rx Instructions: Hospice Patient hyoscyamine sulfate 0.125 mg tablet,disintegrating 0.125 - 0.25 mg PO Q4H PRN (Reason: secretions) Qty: 24 0RF Rx Instructions: Hospice Patient lorazepam 1 mg tablet 1 mg PO Q4H PRN (Reason: anxiety, LOWERY or nausea) Qty: 6 5RF Rx Instructions: Hospice Patient ondansetron 8 mg tablet,disintegrating 8 mg PO Q8H PRN Patient Comments: DISSOLVE ONE TABLET ON THE TONGUE EVERY 8 HOURS NEEDED FOR NAUSEA dexamethasone 2 mg tablet 2 mg PO BID Patient Comments: TAKE ONE TABLET BY MOUTH TWICE A DAY WITH MEALS fluticasone propionate 50 mcg/actuation spray,suspension 1 spray INTRANASAL BID Patient Comments: USE ONE SPRAY INTO BOTH NOSTRILS TWO TIMES A DAY. USE AFTER NASAL SALINE levothyroxine 100 mcg tablet 100 mcg PO QAM Patient Comments: TAKE ONE TABLET BY MOUTH EVERY MORNING 30 MIN. PRIOR TO EATING pantoprazole 40 mg tablet,delayed release (DR/EC) 40 mg PO DAILY Patient Comments: TAKE ONE TABLET BY MOUTH EVERY DAY WHILE TAKING DEXAMETHASONE cyclobenzaprine 5 mg tablet 5 mg PO TID PRN Patient Comments: TAKE ONE TABLET BY MOUTH THREE TIMES A DAY NEEDED naproxen sodium [Aleve] 220 mg capsule 220 mg PO BID PRN docusate sodium [Col-Rite] 250 mg capsule 250 mg PO DAILY Discontinued acetaminophen 650 mg suppository 650 mg LA Q6H PRN (Reason: fever, mild pain) Qty: 6 0RF Rx Instructions: Hospice Patient morphine concentrate 100 mg/5 mL (20 mg/mL) solution See Rx Instructions PO Q1H PRN MDD 24 mL PRN (Reason: moderate to severe pain or shortness of breath) Qty: 30 0RF Rx Instructions: Give 0.25 mL for mild pain/SOB Give 0.5 mL for moderate pain/SOB Give 1 mL for severe pain/SOB orally every 1 hour, as needed PRN; Hospice Patient bisacodyl [Dulcolax (bisacodyl)] 10 mg suppository 10 mg LA daily PRN (Reason: constipation) Qty: 2 0RF Rx Instructions: Hospice Patient Insert 1 supp LA Daily PRN constipation (no BM in 3 days) acetaminophen [Mapap Extra Strength] 500 MG tablet 500 mg PO Q8H PRN Prevalite 4 gram Powder In Packet 1 packet PO 1000,1900 Qty: 60 0RF hydrocortisone [Anti-Itch (HC)] 1 % cream 1 applic topical QID PRN Discharge Instructions Activity:: Activity as Tolerated Equipment/Supplies:: No Equipment Needed Diet:: As Tolerated Discharge Orders Discharge Orders: Discharge Order (Routine); Ordered 04/01/25 Ordered By: Ralf Bernardo DS: Summary Time Spent with Patient providing and/or coordinating discharge services: Greater than 30 minutes Status at Discharge Functional status at discharge: bed bound Overall status at discharge: patient is not back to baseline Mental Status: other (somnolent, but arouses) Speech and Movement: slowed movement Mood: congruent mood and other (somnolent, but arouses) Affect: normal affect Exam Narrative Exam Narrative: General: This is a pleasant, chronically ill-appearing woman in no distress, neck held to the right, somewhat sleepy but arouses and responds to questions. CV: RRR Resp: CTAB Abd: soft, NTND ext: left side arm/leg with 1+ puffy edema, not tender, warm Psych Mental Status: other (somnolent, but arouses) Speech and Movement: slowed movement Mood: congruent mood and other (somnolent, but arouses) Affect: normal affect DS: Data Vitals/I&O Vitals and I&O: Vital Signs Temperature 36.2 C L 03/30/25 09:14 Temperature Source Temporal Artery Scan 03/30/25 09:14 Pulse 95 H 03/30/25 09:14 Pulse 98 H 03/26/25 18:20 Respiratory Rate 16 03/30/25 09:14 Respiratory Effort Normal, Non-Labored 03/26/25 21:23 Respiratory Depth Normal 03/26/25 21:23 Respiratory Pattern Normal 03/26/25 21:23 Blood Pressure 124/94 H 03/30/25 09:14 Blood Pressure Mean 104 03/30/25 09:14 Pulse Oximetry 97 03/30/25 09:14 Oxygen Delivery Method Nasal Cannula 03/30/25 09:14 Oxygen Flow Rate 3 03/30/25 09:14 Pain Level 5 04/01/25 09:20 Comment pT states NC removed due to discomfort; no SOB at this time 03/28/25 09:55 Intake & Output 03/31/25 04/01/25 04/01/25 23:59 11:59 23:59 Intake Total 450 / 450 Output Total 950 / 1500 450 / 450 Balance -950 / -1280 0 / 0 Intake: IV Oral 440 / 440 Output: Urine 950 / 1500 450 / 450 Other: Urine Color Yellow Straw Urine Appearance Clear Clear Data Completed and Pending Pending Labs at Discharge: 03/26/25 03/26/25 03/27/25 14:48 19:53 03:59 WBC 4.94 RBC 5.60 H Hgb 15.4 Hct 47.0 H MCV 84 MCH 27.5 MCHC 32.8 RDW 20.0 H Plt Count 142 MPV 10.1 Sodium 141 Potassium 3.9 Chloride 101 Carbon Dioxide 28.3 Anion Gap 11.7 H BUN 19 H Creatinine 0.7 Est GFR (CKD-EPI 2020) 95.92 Glucose 92 Calcium 9.2 Total Bilirubin 1.0 AST 63 H ALT 111 H Alkaline Phosphatase 124 H Total Protein 7.3 Albumin 3.4 TSH 1.32 Urine Color Yellow Urine Clarity Sl Cloudy Urine pH 8.5 H Ur Specific [place] 1.015 Urine Protein 100 H Urine Ketones 80 H Urine Blood Large H Urine Nitrite Negative Urine Bilirubin Small H Urine Urobilinogen 0.2 Ur Leukocyte Esterase Large H Urine RBC 10-20 H Urine WBC >50 H Ur Epithelial Cells Few Urine Crystals Negative Urine Bacteria Moderate Urine Casts Negative Urine Mucus Negative Ur Culture Indicated? Yes Urine Glucose Negative COVID-19 Source Nasopharynx SARS-CoV-2 (PCR) Negative Influenza Type A (PCR) Negative Influenza Type B (PCR) Negative RSV (PCR) Negative PFSH All Active Problems (Updated 04/01/25 @ 00:04 by NANDA PAYNE) Palliative care patient (Acute) Cancer related pain (Acute) Metastasis to brain (Acute) Debility (Acute) Pneumonia (Acute) Dyspnea (Acute) Acute dehydration (Acute) Acute hypokalemia (Acute) Diarrhea (Acute) Colitis (Acute) Discharge planning issues (Acute) DVT prophylaxis (Acute) Back pain (Acute) Atrial fibrillation (Chronic) C. difficile colitis (Acute) Breast cancer (Chronic) Dehydration (Acute) Hyperplastic colon polyp (Acute ~08/10/22) Screening for colon cancer (Acute) Back pain, acute (Acute) Acute pain due to trauma (Acute) Medical History DCIS (ductal carcinoma in situ) Disorder of vocal cord laryngoplasty [place]'s disease GERD (gastroesophageal reflux disease) Hyperlipidemia Prediabetes History of thyroid cancer BMI 35.0-35.9,adult Allergic rhinitis Pneumonia Malaise and fatigue Rosacea Acute cystitis Surgical History History of partial hysterectomy H/O colonoscopy (~08/10/22) H/O esophagogastroduodenoscopy History of laryngoplasty Hx of cholecystectomy Hx of thyroidectomy Social History Smoking/Tobacco Use Status: Former Tobacco Use Quit Date: 06/03/83 Smoking risk assessment performed?: Yes Alcohol Intake: current Alcohol Intake frequency: a few times a month Drug use: Rarely Substance use type: marijuana Details: marijuana inh t-2 Housing: apartment Do you feel safe at home: Yes Do you feel safe in your relationship?: Yes Time Spent with Patient Time Spent with Patient: <45 minutes Time was spent: preparing to see the patient(eg.review tests), obtaining and/or reviewing separately otained hiistory, referring, communicating with other health sub acute care nurse, indepentently interpreting results and care coordination
== END 2025-04-01 12:23 | disposition skilled nursing facility (03) | DRG 948 ==
LOC: ER 16:58 → MS 18:44
PROVIDERS: Nurse Practitioner Family; Admitting Provider Family Medicine; Emergency Provider Physician Assistant; PCP Family Medicine; Responsible Provider Family Medicine; Visit Provider Family Medicine
DX: C79.31 Secondary malignant neoplasm of brain (principal); Z66 Do not resuscitate; G89.3 Neoplasm related pain (acute) (chronic); Z51.5 Encounter for palliative care; N30.00 Acute cystitis without hematuria; E89.0 Postprocedural hypothyroidism; K21.9 Gastro-esophageal reflux disease without esophagitis; B96.4 Proteus (mirabilis) (morganii) as the cause of diseases classified elsewhere; E78.5 Hyperlipidemia, unspecified; R73.03 Prediabetes; Z85.850 Personal history of malignant neoplasm of thyroid; Z85.3 Personal history of malignant neoplasm of breast; R53.1 Weakness; Z73.89 Other problems related to life management difficulty; R53.81 Other malaise; E86.0 Dehydration; E87.6 Hypokalemia; K52.9 Noninfective gastroenteritis and colitis, unspecified; F12.90 Cannabis use, unspecified, uncomplicated
CPT/HCPCS: 00123; 36415; 80053; 85027; 87077; 87637; 93005; 96360; 96361; 99285; J1650; 81003; 81015; 84443; 87086; 87186; 93010; 99222; 99231; 99232; 99238; J1171; J2405; J3490; J8540

== ENCOUNTER 2025-04-04 10:42 | Emergency (ER) | payer MEDICARE, MEDICAID, SELFPAY ==
[2025-04-04 10:42] VITALS: BP 128/95; PULSE 109; RESP 20; TEMP 36.8; O2SAT 99
--- NOTE | 2025-04-04 10:59 | W.ED.GENAD ---
Discharge Plan Disposition Patient Disposition: Custodial Facility(SNF) Condition: Stable Discharge Details Clinical Impression: Fear for personal safety Primary Care Provider: Kayleigh Chandler ED Provider: Gregg Moreland [place] Meds and New Rx's Prescriptions: Continued fentanyl 25 mcg/hr patch 72 hour 1 patch transdermal Q72H MDD 1 patch Qty: 5 0RF lidocaine 5 % adhesive patch,medicated 1 patch topical DAILY Qty: 15 0RF Rx Instructions: leave on most painful area (low back) for up to 12 hrs prochlorperazine maleate 10 mg tablet 10 mg PO Q6H PRN (Reason: nausea and vomiting) Qty: 6 0RF Rx Instructions: Hospice Patient hyoscyamine sulfate 0.125 mg tablet,disintegrating 0.125 - 0.25 mg PO Q4H PRN (Reason: secretions) Qty: 24 0RF Rx Instructions: Hospice Patient lorazepam 1 mg tablet 1 mg PO Q4H PRN (Reason: anxiety, LOWERY or nausea) Qty: 6 5RF Rx Instructions: Hospice Patient pantoprazole [Protonix] 40 mg tablet,delayed release (DR/EC) 40 mg PO DAILY sennosides [Laxative (sennosides)] 8.6 mg tablet 8.6 mg PO BID PRN sorbitol 70 % solution 30 ml PO TID PRN ondansetron 8 mg tablet,disintegrating 8 mg PO Q8H PRN Patient Comments: DISSOLVE ONE TABLET ON THE TONGUE EVERY 8 HOURS NEEDED FOR NAUSEA dexamethasone 2 mg tablet 2 mg PO BID Patient Comments: TAKE ONE TABLET BY MOUTH TWICE A DAY WITH MEALS fluticasone propionate 50 mcg/actuation spray,suspension 1 spray INTRANASAL BID Patient Comments: USE ONE SPRAY INTO BOTH NOSTRILS TWO TIMES A DAY. USE AFTER NASAL SALINE levothyroxine 100 mcg tablet 100 mcg PO QAM Patient Comments: TAKE ONE TABLET BY MOUTH EVERY MORNING 30 MIN. PRIOR TO EATING pantoprazole 40 mg tablet,delayed release (DR/EC) 40 mg PO DAILY Patient Comments: TAKE ONE TABLET BY MOUTH EVERY DAY WHILE TAKING DEXAMETHASONE cyclobenzaprine 5 mg tablet 5 mg PO TID PRN Patient Comments: TAKE ONE TABLET BY MOUTH THREE TIMES A DAY NEEDED naproxen sodium [Aleve] 220 mg capsule 220 mg PO BID PRN docusate sodium [Col-Rite] 250 mg capsule 250 mg PO DAILY gabapentin 300 mg Capsule 300 mg PO TID Qty: 0 0RF acetaminophen 325 mg Tablet 650 mg PO Q4H PRN PRNQty: 30 0RF hydromorphone 2 mg Tablet 2 mg PO Q1H PRN PRNQty: 20 0RF cefdinir 300 mg Capsule 300 mg PO Q12H Qty: 10 0RF Discharge Instructions Additional Instructions: We contacted and relayed your concerns to nursing the home director and they will address this with you as well. Care management have also reached out to get you reestablished with the hospice care team. HPI General Mode of arrival: EMS. Date/Time Provider Initiated Documentation: 04/04/25 10:44. Limitations to Documentation: no limitations. Information obtained by: patient. History of Present Illness 65 year old F presents to the emergency department with the chief complaint of issues at rehab facility, described as moderate, Patient started experiencing this day(s) (1) and it has been constant. No relieving factors improve symptom(s), No exacerbating factors reported . Patient notes no other symptoms.. Patient did receive the following treatments prior to arrival, none Related Data Home Medications Medication Instructions Recorded Confirmed ondansetron 8 mg disintegrating 8 mg PO Q8H PRN 02/05/23 04/04/25 tablet dexamethasone 2 mg tablet 2 mg PO BID 07/31/23 04/04/25 fluticasone propionate 50 1 spray intranasal BID 01/15/25 04/04/25 mcg/actuation nasal spray,suspension levothyroxine 100 mcg tablet 100 mcg PO QAM 01/15/25 04/04/25 cyclobenzaprine 5 mg tablet 5 mg PO TID PRN 03/05/25 04/04/25 pantoprazole 40 mg tablet,delayed 40 mg PO DAILY 03/05/25 04/04/25 release docusate sodium 250 mg capsule 250 mg PO DAILY 03/26/25 04/04/25 (Col-Rite) naproxen sodium 220 mg capsule 220 mg PO BID PRN 03/26/25 04/04/25 (Aleve) hyoscyamine sulfate 0.125 mg 0.125 - 0.25 mg (1 - 2 x 0.125 mg) 03/28/25 04/04/25 disintegrating tablet PO Q4H PRN secretions #24 tabs lorazepam 1 mg tablet 1 mg PO Q4H PRN anxiety, LOWERY or 03/28/25 04/04/25 nausea #6 tabs prochlorperazine maleate 10 mg 10 mg PO Q6H PRN nausea and 03/28/25 04/04/25 tablet vomiting #6 tabs gabapentin 300 mg capsule 300 mg PO TID #0 caps 03/30/25 04/04/25 acetaminophen 325 mg tablet 650 mg (2 x 325 mg) PO Q4H PRN PRN 04/01/25 04/04/25 #30 tabs cefdinir 300 mg capsule 300 mg PO Q12H #10 caps 04/01/25 04/04/25 hydromorphone 2 mg tablet 2 mg PO Q1H PRN PRN #20 tabs 04/01/25 04/04/25 fentanyl 25 mcg/hr transdermal 1 patch transdermal Q72H #5 ea 04/03/25 04/04/25 patch lidocaine 5 % topical patch 1 patch topical DAILY #15 ea 04/03/25 04/04/25 pantoprazole 40 mg tablet,delayed 40 mg PO DAILY 04/04/25 04/04/25 release (Protonix) sennosides 8.6 mg tablet (Laxative 8.6 mg PO BID PRN 04/04/25 04/04/25 (sennosides)) sorbitol 70 % solution 30 ml PO TID PRN 04/04/25 04/04/25 Previous Rx's Medication Instructions Recorded hyoscyamine sulfate 0.125 mg 0.125 - 0.25 mg (1 - 2 x 0.125 mg) 03/28/25 disintegrating tablet PO Q4H PRN secretions #24 tabs lorazepam 1 mg tablet 1 mg PO Q4H PRN anxiety, LOWERY or 03/28/25 nausea #6 tabs prochlorperazine maleate 10 mg 10 mg PO Q6H PRN nausea and 03/28/25 tablet vomiting #6 tabs gabapentin 300 mg capsule 300 mg PO TID #0 caps 03/30/25 acetaminophen 325 mg tablet 650 mg (2 x 325 mg) PO Q4H PRN PRN 04/01/25 #30 tabs cefdinir 300 mg capsule 300 mg PO Q12H #10 caps 04/01/25 hydromorphone 2 mg tablet 2 mg PO Q1H PRN PRN #20 tabs 04/01/25 fentanyl 25 mcg/hr transdermal 1 patch transdermal Q72H #5 ea 04/03/25 patch lidocaine 5 % topical patch 1 patch topical DAILY #15 ea 04/03/25 Allergies Allergy/AdvReac Type Severity Reaction Status Date / Time etodolac (From Lodine) Allergy swelling Unverified 04/04/25 10:56 of hands Sulfa (Sulfonamide Allergy rash, Unverified 04/04/25 10:56 Antibiotics) hand/arm swelling latex AdvReac Intermediate Hives Unverified 04/04/25 10:56 morphine AdvReac Mild Rash Verified 04/04/25 10:56 ciprofloxacin (From Cipro) AdvReac N/V Unverified 04/04/25 10:56 ciprofloxacin HCl (From AdvReac N/V Unverified 04/04/25 10:56 Cipro) General Stated Complaint: GenMedical FISH: 3 Review of Systems All systems reviewed & are unremarkable except as noted in HPI and below Constitutional Constitutional: Denies chills and Denies fever(s) Cardiovascular Cardiovascular: Denies chest pain Gastrointestinal Gastrointestinal: Denies abdominal pain and Denies vomiting Integumentary/Breasts Skin/Breast: Denies rash Exam Const General: no acute distress Orientation: alert HENMT Mouth: moist mucous membranes Eyes General: appearance normal, both eyes and all related structures Neck Neck: normal visual inspection Resp Effort & Inspection: able to speak in complete sentences Cardio Rate: regular rate Skin General skin exam: no rashes or lesions noted Neuro General: patient alert and patient oriented x3 Extrem General: normal to inspection Psych Mental Status: mental status grossly normal Course Vital Signs Vital signs: Vital Signs Temperature 36.8 C 04/04/25 10:42 Pulse 109 H 04/04/25 10:42 Respiratory Rate 20 04/04/25 10:42 Blood Pressure 128/95 H 04/04/25 10:42 Pulse Oximetry 99 04/04/25 10:42 Temperature 36.8 C 04/04/25 10:42 Temperature Source Oral 04/04/25 10:42 Pulse 109 H 04/04/25 10:42 Respiratory Rate 20 04/04/25 10:42 Blood Pressure 128/95 H 04/04/25 10:42 Pulse Oximetry 99 04/04/25 10:42 Oxygen Delivery Method Nasal Cannula 04/04/25 10:42 Oxygen Flow Rate 3 04/04/25 10:42 Pain Level 5 04/04/25 10:42 Medical Decision Making 65-year-old female with a history of stage IV breast cancer with metastases to the brain who was recently admitted and placed on hospice and was discharged to [facility] and rehab comes in with EMS stating she does not feel safe being at health and rehab because she states that she is not getting adequate pain control and also because she was left off oxygen all night. She is with me on 3 L nasal cannula per the patient. She is currently alert and oriented in no distress. Show she has chronic back and shoulder pain that is unchanged. Denies any new pain. No fevers. She is requesting a lidocaine patch for her shoulder and back which I will order and also consult care manage to determine next steps for disposition as she does not want to return to the [facility] and rehab. Patient and family met with care management, therapist himself. We discussed that we cannot get her to the hospital without issue. With prolonged discussion with the patient and family she is planned for discharge back to the [facility] to help with rehab. She apparently revoked her hospice status this morning but wants to try and get that reestablished so care management is going to assist with that. Differential Diagnosis Differential Diagnosis: discharge planning issues, cancer related pain Lab Data Lab results reviewed: Yes I reviewed the patient's lab results. PFSH All Active Problems (Updated 04/04/25 @ 14:18 by Gregg Moreland MD) Fear for personal safety (Acute) Palliative care patient (Acute) Cancer related pain (Acute) Metastasis to brain (Acute) Debility (Acute) Pneumonia (Acute) Dyspnea (Acute) Colitis (Acute) Diarrhea (Acute) Acute hypokalemia (Acute) Acute dehydration (Acute) DVT prophylaxis (Acute) Back pain (Acute) Atrial fibrillation (Chronic) C. 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 [place]'s disease GERD (gastroesophageal reflux disease) Hyperlipidemia Prediabetes History of thyroid cancer BMI 35.0-35.9,adult Allergic rhinitis Pneumonia Malaise and fatigue Rosacea Acute cystitis Surgical History History of partial hysterectomy H/O colonoscopy (~08/10/22) H/O esophagogastroduodenoscopy History of laryngoplasty Hx of cholecystectomy Hx of thyroidectomy Social History Smoking/Tobacco Use Status: Former Tobacco Use Quit Date: 06/03/83 Smoking risk assessment performed?: Yes Alcohol Intake: current Alcohol Intake frequency: a few times a month Drug use: Rarely Substance use type: marijuana Housing: apartment Do you feel safe at home: Yes Do you feel safe in your relationship?: Yes
[2025-04-04] MEDS: Lidocaine 5% Patch 2 PATCH TP (11:24)
[2025-04-04] MEDS: LORazepam 1 MG TAB PO (11:46)
[2025-04-04 13:12] VITALS: RESP 20
--- NOTE | 2025-04-04 21:17 | CMPROGNOTE_ITS ---
Date of service: 04/04/25 Time of Service: 13:00 Care Management Progress Note Progress Note Text Progress Note Text: CM was asked to come to the ED to talk to Olga Lidia and her brother and niece. Olga Lidia was discharge to [facility] on Saturday and was admitted to hospice on Saturday. Apparently when the home health nurse went to see Olga Lidia this morning, she informed her that she wanted to revoke hospice and go for treatment in [place]. (Olga Lidia has stage IV breast cancer and has been told by her oncologist that she has only weeks to live.) Olga Lidia stated that [facility] feels she is not receiving good care at the SNF. She claimed that she had been without oxygen all night and that her pain was not well controlled. She informed CM that she did not want to return to the rehab and wanted to be admitted to [facility] again. CM explained that there was no medical reason to admit her and that the hospital currently has no bed availability. Her niece Eleanor and Olga Lidia's brother tried to advocate for her to remain at [facility] stating that there was no one from the family that could care for her. They stated that it was not safe to send her back. CM again explained that she had no medical reason to be in the hospital and that admission was not appropriate. Their choices were to take her home and care for her there or have her return to the rehab. The ED staff pointed out that the rehab is licensed by the [facility] and is regularly inspected. It is considered a safe discharge plan and she has 24/7 care available to her there. CM and ED staff both spoke to MAKSIM Bañuelos at [facility]. She confirmed that [facility] still had a bed there and that they would take her back. Melisa agreed to come this afternoon on her day off and meet with the family to discuss their concerns once olga lidia returned. Olga Lidia and the family were still not happy with the arrangement but agreed to return to the facility. Social Determinants of Health Screening Will the Patient Participate in the Screening?: Declined to provide
== END 2025-04-04 14:56 | disposition skilled nursing facility (03) ==
PROVIDERS: Emergency Provider Emergency Medicine; PCP Family Medicine
DX: F40.9 Phobic anxiety disorder, unspecified (principal); G89.3 Neoplasm related pain (acute) (chronic)
CPT/HCPCS: 99283 ×2